=== PATIENT | male | born 1965 ===

== ENCOUNTER 2021-07-09 11:19 | Emergency (ER) | payer OTHER, SELFPAY ==
[2021-07-09 11:40] VITALS: BP 142/61; PULSE 91; RESP 18; TEMP 37; O2SAT 98; BMI 25.8
--- NOTE | 2021-07-09 13:06 | ED.GENADULT ---
HPI - General Adult General Chief complaint: Epistaxis Stated complaint: BLEEDING FROM MOUTH AND NOSE Time Seen by Provider: 07/09/21 11:48 Source: patient, family and RN notes reviewed Mode of arrival: ambulatory Limitations: language barrier History of Present Illness HPI narrative: 55-year-old male with past medical history of liver cirrhosis, hep C is here today for nose bleed. Patient is here with his daughter. Patient came from [place] on Friday and Friday started with no bleed. Patient states that sometimes he will have bleeding post nasally and occasionally he will spit up blood. Patient denies being on any blood thinners. No baseline blood work here as patient just came from [place]. Currently the bleeding has stopped. Patient denies scratching his nose. Patient reports that here blew his nose couple times hard and that is when this started. Patient's daughter does report that her father's room is dry and warm. There is no humidifier there. Onset (ago): day(s) Related Data Allergies Allergy/AdvReac Type Severity Reaction Status Date / Time No Known Allergies Allergy Verified 07/09/21 11:39 Review of Systems Review of Systems: Constitutional : No Weight loss, No Fever, No Chills, No Night Sweats, No Fatigue, No Malaise ENT/Mouth : No Hearing loss, No Ear Pain, No Nasal Congestion, No Sinus Pain, No Hoarseness, No sore throat, No Rhinorrhea, No Swallowing Difficulty, nasal bleeding Eyes: No Eye Pain, No Swelling, No Redness, No Foreign Body, No Discharge, No Vision Changes Cardiovascular : No Chest Pain, No SOB, No Dyspnea on Exertion, No Orthopnea, No Edema, No Palpitations Respiratory : No Cough, No Sputum, No Wheezing, No Smoke Exposure, No Dyspnea Gastrointestinal : No Nausea, No Vomiting, No Diarrhea, No Constipation, No abdominal Pain, No Hematochezia, No Melena Genitourinary : no irregular bleeding, No Dysuria, No Urinary Frequency, No Hematuria, No Urinary Incontinence, No Urgency, No Flank Pain, No Urinary Flow Changes, No Hesitancy Musculoskeletal : No joint pain, No Myalgias, No Joint Swelling Skin : No Skin Lesions, No rash Yes all other systems are reviewed and are negative [facility] Past Medical History Medical History (Updated 07/10/21 @ 00:01 by Kyler Daemon) Diabetes Hepatitis C Surgical History (Updated 07/09/21 @ 11:42 by Jenn Gurrola RN) H/O abdominal surgery Social History Social History Advance Directives: No Advance Directives Information Provided: Yes Physical Exam ED Vital Signs: Vital Signs - 24 hr 07/09/21 11:40 Temperature 98.6 F Pulse Rate 91 Respiratory Rate 18 Blood Pressure 142/61 H Pulse Oximetry 98 BMI result Body Mass Index 25.8 Const General: cooperative, healthy appearing, comfortable and no acute distress Nutritional Appearance: average body habitus Limitations: language barrier (Daughter's translating) HENMT Head: Yes normal to inspection, Yes normocephalic and Yes atraumatic Ears: hearing grossly normal bilaterally, external ears normal and TM's normal bilaterally General nose exam: Normal external nose present, Normal nares present, Abnormal mucous membranes and turbinates present (Blood and irritation) erythematous and Epistaxis present Face and sinus: Yes normal facial exam, Yes sinuses nontender and Yes face symmetric Mouth: Normal oral and palatal mucosa present, lip normal and tongue normal Throat: Yes tonsils normal, Yes uvula midline and Yes postnasal drainage Eyes General: appearance normal, both eyes and all related structures Neck Neck: Yes normal visual inspection, Yes full ROM, Yes no lymphadenopathy, Yes trachea midline and Yes supple Resp Effort & Inspection: normal respiratory effort and able to speak in complete sentences Auscultation: clear to auscultation bilaterally Cardio Rate: regular rate Rhythm: regular rhythm Heart sounds: S1 normal heart sound present and S2 normal heart sound present GI Inspection: Yes normal to inspection, No Abdominal wall edema and No distended Palpation (GI): No hepatosplenomegaly present Auscultation: normal bowel sounds General: Yes no CVA tenderness Back/Spine/Pelvis Back: no CVA tenderness Psych Appearance: grossly normal Mental Status: mental status grossly normal Speech and movement: Normal speech and movement present Attitude: cooperative Course Course Course Narrative: 55-year-old male with past medical history of liver cirrhosis, hep C is here today for nose bleed. Patient is here with his daughter. Patient came from [place] on Friday and Friday started with nose bleed. Patient states that sometimes he will have bleeding post nasally and occasionally he will spit up blood. Patient denies being on any blood thinners. No baseline blood work available as patient just came from [place]. Currently the bleeding has stopped. Patient denies scratching his nose. Patient reports that here blew his nose couple times pretty hard and that is when the bleeding had started. Will do baseline blood work, liver profiles, PT and INR, CBC. Bleeding under control for now continue to monitor. Patient does have irritation in his nose with some dried blood. No bleeding at this moment. Reevaluation(s) Reevaluation #1: Normal PT and INR. H&H low 12.9 and 37.6, platelet count 90, total bili 3.8 direct bili 3, AST 192, ALT 132 alk phosphate 192. Patient has a history of chronic liver cirrhosis he, he was being evaluated in [place], however his family wanted him to be here for better medical care. Patient also has a history of hep C, unknown if he was treated in the past or not. That has to be evaluated as an outpatient. Patient used to drink alcohol, stopped drinking over a decade ago. Patient has no nose bleed now or at any time that he was here under my care. I will send him to follow-up with political research scientist to further evaluate as I can clearly see that there is irritation. I will send him to see gastroenterology for liver and hep C management. Medical Decision Making Lab Data Result diagrams: 07/09/21 13:19 07/09/21 13:19 Labs: Lab Results 07/09/21 07/09/21 07/09/21 Range/Units 13:19 13:19 13:19 WBC 2.9 L (4.8-10.8) X10*3/uL RBC 4.35 L (4.60-5.80) X10*6/uL Hgb 12.9 L (14.0-18.0) g/dl Hct 37.6 L (42.0-52.0) % MCV 86.4 (80.0-98.0) fL MCH 29.7 (27.0-33.0) pg MCHC 34.3 (31.0-36.0) g/dl RDW 13.5 (11.0-16.0) % Plt Count 90 L (160-400) X10*3/uL MPV 10.0 (9.4-12.4) fL Immature Gran % (Auto) 0.3 (0.0-0.4) % Neut % (Auto) 36.0 L (45-73) % Lymph % (Auto) 42.9 H (20-40) % Williamson % (Auto) 18.8 H (2-11) % Eos % (Auto) 1.7 (0-4) % Baso % (Auto) 0.3 (0-2) % Lymph # (Auto) 1.2 (1.2-4.9) X10*3/uL Williamson # (Auto) 0.5 (0.1-1.2) X10*3/uL Eos # (Auto) 0.1 (0.0-0.4) X10*3/uL Baso # (Auto) 0.0 (0.0-0.2) X10*3/uL Abs Immat Gran (auto) 0.01 (0.00-0.03) X10*3/uL Absolute Neuts (auto) 1.0 L (2.0-8.3) x10*3/uL Absolute Nucleated RBC 0.000 (0.0-0.012) X10*3/uL Nucleated RBC % (auto) 0.0 (0.0-0.2) /100WBC PT 12.4 (9.9-13.0) SEC INR 1.1 (0.9-1.1) APTT 37.9 (24.1-38.0) SEC Sodium 139 (135-145) mmol/L Potassium 4.2 (3.3-5.1) mmol/L Chloride 109 H (96-108) mmol/L Carbon Dioxide 26 (22-29) mmol/L Anion Gap 8 L (12-20) BUN 10 (9-16) mg/dL Creatinine 0.61 (0.5-1.4) mg/dL Estim Creat Clear Calc 120.5 Estimated GFR > 60 Random Glucose 103 (60-115) mg/dL Calcium 8.7 (8.4-10.2) mg/dL Total Bilirubin 3.8 H (0.0-1.0) mg/dL Direct Bilirubin 3.0 H (0.0-0.5) mg/dL AST 192 H (5-37) U/L ALT 133 H (0-40) U/L Alkaline Phosphatase 192 H (39-117) U/L Total Protein 6.9 (6.5-8.0) g/dL Albumin 2.8 L (3.5-5.0) g/dL Discharge Plan Discharge Clinical Impression: Epistaxis Patient Disposition: Home, Self-Care Instructions: Nosebleed (ED) Additional Instructions: You were seen here today for nose bleed. Make sure that you apply Vaseline and saline drops into ear nose. Make sure that you keep your room humidified and cool. Please follow-up with you nose and throat specialist. We did your liver enzymes and they are elevated. You were diagnosed with liver cirrhosis and [place]. We will give you phone number to Gastroenterology for follow-up and management of your liver cirrhosis. You may return to emergency department if his symptoms will get worse or if you experience any additional concerning symptoms. Referrals: Rayna See ANP-C [Nurse Practitioner] - 2 weeks (Liver cirrhosis) Mal Shannon MD [Physician] - 2 days [place] [Physician] - 5 days Interventions: ED Discharge Assessment Last Done: 07/09/21 15:15 Discharge Date/Time: 07/09/21 15:16
[2021-07-09 13:24] LABS: MANUAL DIFF FLAG NO
[2021-07-09 13:27] LABS: Basophils Percent Auto 0.3 % (0-2); Eosinophils Absolute Auto 0.1 X10*3/uL (0.0-0.4); Eosinophils Percent Auto 1.7 % (0-4); Hematocrit 37.6 % (42.0-52.0); Hemoglobin 12.9 g/dl (14.0-18.0); Imm Gran Abs Auto 0.01 X10*3/uL (0.00-0.03); Imm Gran Pct Auto 0.3 % (0.0-0.4); Lymphocytes Absolute Auto 1.2 X10*3/uL (1.2-4.9); Lymphocytes Percent Auto 42.9 % (20-40); Mean Corpuscular HGB Conc 34.3 g/dl (31.0-36.0); Mean Corpuscular Hemoglobin 29.7 pg (27.0-33.0); Mean Corpuscular Volume 86.4 fL (80.0-98.0); Monocytes Absolute Auto 0.5 X10*3/uL (0.1-1.2); Monocytes Percent Auto 18.8 % (2-11); Red Blood Count 4.35 X10*6/uL (4.60-5.80); Red Cell Distribution Width 13.5 % (11.0-16.0); White Blood Count 2.9 X10*3/uL (4.8-10.8)
[2021-07-09 13:28] LABS: Platelet Count 90 X10*3/uL (160-400)
[2021-07-09 13:32] LABS: INTERNATIONAL NORM RATIO 1.1 (0.9-1.1); Prothrombin Time 12.4 SEC (9.9-13.0)
[2021-07-09 13:35] LABS: Partial Thromboplastin Time 37.9 SEC (24.1-38.0)
[2021-07-09 13:47] LABS: Alanine Aminotransferase 133 U/L (0-40); Albumin Level 2.8 g/dL (3.5-5.0); Alkaline Phosphatase 192 U/L (39-117); Anion Gap 8 (12-20); Aspartate Amino Transferase 192 U/L (5-37); Bilirubin Total 3.8 mg/dL (0.0-1.0); Blood Urea Nitrogen 10 mg/dL (9-16); Calcium 8.7 mg/dL (8.4-10.2); Carbon Dioxide 26 mmol/L (22-29); Chloride 109 mmol/L (96-108); Creatinine Clr Calc Pharmacy 120.5; Estimated Glomerular Filt Rate > 60; Glucose Random 103 mg/dL (60-115); Potassium 4.2 mmol/L (3.3-5.1); Sodium 139 mmol/L (135-145); Total Protein 6.9 g/dL (6.5-8.0)
== END 2021-07-09 15:16 | disposition home or self-care (01) ==
PROVIDERS: Emergency Provider Emergency Medicine
DX: R04.0 Epistaxis (principal); Z79.899 Other long term (current) drug therapy
CPT/HCPCS: 36415; 80048; 80076; 85025; 85610; 85730; 99283

== ENCOUNTER → 2021-07-31 15:15 | Outpatient (BNVA) | payer MEDICAID, SELFPAY | PROVIDERS: Visit Provider Internal Medicine | DX: B19.20 Unspecified viral hepatitis C without hepatic coma (principal) | CPT/HCPCS: 99202 ==

== ENCOUNTER 2021-09-17 13:30 | Outpatient (REF) | payer MEDICAID, SELFPAY ==
--- NOTE | 2021-09-17 13:33 | CA_ITS ---
Transthoracic Echocardiogram Patient (Last, First, Middle): Yordy Serna Antonio Gender: Male Date of : 1965 Age: 56 Procedure Date: 09/17/2021 Procedure Type: Transthoracic Echocardiogram Location: OP Height: 165.1 cm Weight: 68.04 kg BSA: 1.75 m2 Heart Rate: bpm BP: 124 / 64 mmHg Electric Freight Car Operator: SB Referring MD: Danielle Iniguez Symptoms: R06.00 [id number] Study Quality: Fair ECG Rhythm: Sinus Conclusions: - The left ventricular systolic function is mildly decreased. The calculated ejection fraction is 51% by biplane method. - There is mild calcification of the aortic valve. - There is mild mitral valve regurgitation. - Mild pulmonary hypertension is present. Findings Left Ventricle Normal left ventricular cavity size. There is normal left ventricular wall thickness. The left ventricular systolic function is mildly decreased. The calculated ejection fraction is 51% by biplane method. There is no evidence of regional wall motion abnormalities. Diastolic function is normal for age. LV peak GLS -17.2% (normal). Right Ventricle Normal right ventricular cavity size and systolic function. Atria The left atrium is mildly dilated. The right atrium is normal in size. Aortic Valve The aortic valve was not well visualized. There is mild calcification of the aortic valve. There is no aortic valve stenosis. There is no aortic valve regurgitation. Mitral Valve The mitral valve appears normal. There is mild mitral valve regurgitation. There is no mitral valve stenosis. Pulmonic Valve The pulmonic valve is likely normal. Tricuspid Valve Normal tricuspid valve structure. There is trace tricuspid valve regurgitation. The right ventricular systolic pressure is 44 mmHg. Mild pulmonary hypertension is present. Great Vessels The asc aorta is normal in size. Venous The inferior vena cava is normal in size and collapses less than 50% with inspiration. Pericardium/Pleural There is no evidence of pericardial effusion. Prior Study Comparison No prior study available for comparison. Measurements 2D Linear Measurements IVSd: 0.72 0.6-0.9/0.6-1.0 cm LVIDd: 5.36 3.9-5.3/4.2-5.9 cm LVIDd Index: 3.06 2.4-3.2/2.2-3.1 cm/m2 LVIDs: 3.84 2.0-3.6 cm LVPWd: 0.72 0.7-1.1 cm LA Diam: 3.60 2.7-3.8/3.0-4.0 cm LAIDs Index: 2.06 1.5-2.3 cm/m2 LV Mass: 166.57 67-162/88-224 g LV Mass Index: 95.18 43-95/49-115 g/m2 LVOT Diam: 2.20 3.0+(-)1.3 cm 2D Systolic Function EF 4C: 51.90 >55% EF 2C: 51.30 >55% EF BiP: 50.90 >55% Mitral Valve MV Pk E: 0.99 MV PK A: 0.90 MV Decel Time: 176.00 E/A: 1.10 E'Lateral: 10.80 E'Medial: 9.68 E/E' Med: 10.20 E/E' Lat: 9.20 PHT: 51.00 MVA PHT: 4.31 Decel [place]: 5.64 MR VTI: 1.35 Aortic Valve AoV Pk Adam: 2.24 AoV Mn Adam: 1.59 AoV VTI: 0.42 AoV Pk Grad: 20.00 Aov Mn Grad: 12.00 ROSANGELA Cont.VTI: 2.55 LVOT LVOT Pk Adam: 1.52 LVOT Mn Adam: 1.09 LVOT VTI: 0.28 LVOT Pk Grad: 9.00 LVOT Mn Grad: 5.00 LVOT Diam: 2.20 LVOT Area: 3.80 Diastolic Function MV Pk E: 0.99 MV Pk A: 0.90 E/A: 1.10 E'Medial: 9.68 E/E' Med: 10.20 E' Laterial: 10.80 E/E' Lat: 9.20 Right Ventricle TAPSE (mm): 29.00 TVS' Adam: 16.80 Tricuspid Valve TR Pk Adam: 3.00 TR Pk Grad: 36.00 RA Press: 8.00 RVSP: 44.00 Great Vessels Aorta Sinus of Valsalva: 2.78 2.0-3.[address] [place]: 2.64 1.7-3.4 cm Ao Asc: 2.60 2.1-3.4 cm Pulmonary Veins Pulm Vein S/D 1.20 Pulmonary Valve PV Pk Adam: 1.22 Peak PV Grad: 6.00 Updated in Other Vendor System with Status of Final Jason Padron MD electronically signed on 09/17/2021 4:06:07 PM with status of Final
[2021-09-17 15:40] LABS: INTERNATIONAL NORM RATIO 1.1 (0.9-1.1); Prothrombin Time 12.8 SEC (9.9-13.0)
[2021-09-18 04:41] LABS: Hepatitis B Surface Antigen Negative (Negative)
[2021-09-19 08:16] LABS: Hepatitis A Antibody IgG REACTIVE (Nonreactive); ~Hepatitis A Antibody IgG 10.34 S/CO (0.00-0.99)
[2021-09-20 20:22] LABS: FIB-ALT 105 U/L (9-46); FIB-Alpha-2-Macroglobulin 215 mg/dL (106-279); FIB-Apolipoprotein A1 157 mg/dL (94-176); FIB-GGT 271 U/L (3-85); FIB-Haptoglobin 21 mg/dL (43-212); FIB-Total Bilirubin 3.9 mg/dL (0.2-1.2); Liver Fibrosis Score 0.93; Liver Fibrosis Stage F4; Nec Inflam Act Grade A3; Nec Inflam Act Score 0.79
[2021-09-21 12:40] LABS: Hepatitis C Genotype 1a
== END 2021-09-17 13:31 | disposition home or self-care (01) ==
LOC: HO.LAB 13:30
PROVIDERS: Absent Provider Nurse Practitioner; PCP Nurse Practitioner; Visit Provider Internal Medicine
DX: R06.00 Dyspnea, unspecified (principal); B19.20 Unspecified viral hepatitis C without hepatic coma
CPT/HCPCS: 36415; 81596; 85610; 86708; 87340; 87902; 93306

== ENCOUNTER → 2021-09-26 11:00 | Outpatient (BNVA) | payer MEDICAID, SELFPAY | PROVIDERS: Visit Provider Internal Medicine | DX: Z51.81 Encounter for therapeutic drug level monitoring (principal); B19.20 Unspecified viral hepatitis C without hepatic coma; K74.69 Other cirrhosis of liver | CPT/HCPCS: 99212 ==

== ENCOUNTER → 2021-11-21 10:21 | Outpatient (BNVA) | payer MEDICAID, SELFPAY | PROVIDERS: Visit Provider Internal Medicine | DX: B19.20 Unspecified viral hepatitis C without hepatic coma (principal); K74.69 Other cirrhosis of liver | CPT/HCPCS: 99212 ==

== ENCOUNTER 2021-11-28 21:16 | Inpatient (IN) | payer MEDICAID, SELFPAY ==
--- NOTE | ~2021-11-28 | CT_ITS ---
EXAMINATION: CT ANGIOGRAM OF THE CHEST WITH AND WITHOUT CONTRAST (CT PULMONARY ANGIOGRAM FOR PE) CLINICAL INFORMATION: Reason for Exam elevated d dimer, hemoptysis, SOB/fever COMPARISON: Chest radiograph earlier today TECHNIQUE: Prior to contrast administration, noncontrast localization images were obtained. Subsequently, multidetector volumetric imaging was performed from the thoracic inlet to below the diaphragms following the administration of 75 mL Omnipaque 350 intravenous contrast. No contrast reaction reported Sagittal, coronal, and MIP oblique sagittal reformatted images were obtained on the CT workstation, uploaded to PACS, and reviewed. This CT examination was performed using dose optimization techniques as appropriate, variously including the following: *Automated exposure control *Adjustment of mA and/or kV according to patient size (this includes techniques or standardized protocols for targeted exams where dose is matched to indication/reason for exam; i.e. extremities or head) *Use of iterative reconstruction technique Total exam dose-length product 286 mGy-cm FINDINGS: QUALITY OF STUDY/CONTRAST BOLUS: Suboptimal. PULMONARY ARTERIES: No central or large segmental pulmonary emboli. THORACIC AORTA: No aneurysm or dissection. LUNG: Consolidation is present in the medial basal segment of the left lower lobe. The remainder of the lungs are clear. No suspicious lung masses are seen. Some minimal atelectasis is present in the posterior costophrenic sulcus on the left medially. PLEURA: No pleural effusion or pneumothorax. MEDIASTINUM: Normal heart size. No pericardial effusion. No hilar or mediastinal lymphadenopathy. No evidence of septal bowing or right heart strain. CHEST WALL/AXILLA: No axillary or internal mammary lymphadenopathy. OSSEOUS STRUCTURES: No acute or suspicious osseous abnormality. UPPER ABDOMEN: The spleen is enlarged measuring 13.6 cm in greatest transverse dimension. No reflux of contrast into the hepatic veins to suggest elevated right heart pressures. CT/CT angio chest PE protocol IMPRESSION: 1. Limited study but no pulmonary emboli are seen. 2. Acute pneumonia left lower lobe 3. Incidentally noted mild splenomegaly VTE: negative
--- NOTE | ~2021-11-28 | XR_ITS ---
EXAMINATION: XR CHEST CLINICAL INFORMATION: Shortness of breath COMPARISON: This x-ray 03/23/2009 TECHNIQUE: 2 views of the chest were obtained. FINDINGS: The lungs appear clear. No airspace consolidation, pleural effusion, or pneumothorax. The cardiomediastinal silhouette and pulmonary vascularity are within normal limits. No evidence of pulmonary edema. No acute osseous injury is identified. XR/XR chest 2V IMPRESSION: No acute pulmonary process identified.
[2021-11-28 21:20] VITALS: BP 172/82; PULSE 113; RESP 28; TEMP 39.5; O2SAT 96; BMI 27.4
--- NOTE | 2021-11-28 21:25 | ECG_ITS ---
Test Reason : chest pain Blood Pressure : / mmHG Vent. Rate : 106 BPM Atrial Rate : 106 BPM P-R Int : 160 ms QRS Dur : 084 ms QT Int : 338 ms P-R-T Axes : 076 077 047 degrees QTc Int : 448 ms Sinus tachycardia Minimal voltage criteria for LVH, may be normal variant ( Sokolow-Hinkle ) Borderline ECG No previous ECGs available Referred By: Generic ED Physician Electronically Signed By:ARIA CASTRO MD
[2021-11-28 21:53] LABS: MANUAL DIFF FLAG NO
[2021-11-28 21:56] LABS: Basophils Percent Auto 0.2 % (0-2); Eosinophils Absolute Auto 0.1 X10*3/uL (0.0-0.4); Eosinophils Percent Auto 1.8 % (0-4); Hematocrit 30.1 % (42.0-52.0); Hemoglobin 10.7 g/dl (14.0-18.0); Imm Gran Abs Auto 0.02 X10*3/uL (0.00-0.03); Imm Gran Pct Auto 0.4 % (0.0-0.4); Lymphocytes Absolute Auto 0.8 X10*3/uL (1.2-4.9); Lymphocytes Percent Auto 16.1 % (20-40); Mean Corpuscular HGB Conc 35.5 g/dl (31.0-36.0); Mean Corpuscular Hemoglobin 29.8 pg (27.0-33.0); Mean Corpuscular Volume 83.8 fL (80.0-98.0); Monocytes Absolute Auto 0.5 X10*3/uL (0.1-1.2); Monocytes Percent Auto 10.3 % (2-11); Neutrophils Absolute Auto 3.5 x10*3/uL (2.0-8.3); Neutrophils Percent Auto 71.2 % (45-73); Red Blood Count 3.59 X10*6/uL (4.60-5.80); Red Cell Distribution Width 14.1 % (11.0-16.0)
[2021-11-28 21:57] LABS: Appearance Urine CLEAR; Color Urine YELLOW; Glucose Urine UA NEG (NEG); Leukocyte Esterase Urine NEG (NEG); Nitrite Urine NEG (NEG); PH 5.5 (5.0-8.0); Specific Gravity - Urine 1.025 (1.005-1.025); UACC Culture Trigger NO; Urine Blood 3+ (NEG); Urine Ketones NEG (NEG); Urine Protein NEG (NEG-TRACE)
[2021-11-28 22:02] LABS: Platelet Count 77 X10*3/uL (160-400)
[2021-11-28 22:06] LABS: Bacteria Urine 1+ /LPF; WBC Urine 0 /HPF (0-4)
[2021-11-28 22:15] VITALS: BP 146/74; PULSE 107; RESP 20; TEMP 39.2; O2SAT 98
[2021-11-28 22:15] LABS: Lactic Acid 1.9 mmol/L (0.5-2.0)
[2021-11-28] MEDS: 0.9 % Sodium Chloride 1,000 ML 999 ML IV (22:17)
[2021-11-28 22:19] LABS: Alanine Aminotransferase 55 U/L (0-40); Albumin Level 2.8 g/dL (3.5-5.0); Alkaline Phosphatase 180 U/L (39-117); Anion Gap 11 (12-20); Aspartate Amino Transferase 98 U/L (5-37); Bilirubin Total 3.7 mg/dL (0.0-1.0); Blood Urea Nitrogen 16 mg/dL (9-16); Calcium 7.8 mg/dL (8.4-10.2); Carbon Dioxide 22 mmol/L (22-29); Chloride 108 mmol/L (96-108); Creatinine Clr Calc Pharmacy 106.3; Estimated Glomerular Filt Rate > 60; Glucose Random 106 mg/dL (60-115); Potassium 3.7 mmol/L (3.3-5.1); Sodium 137 mmol/L (135-145); Total Protein 6.6 g/dL (6.5-8.0)
[2021-11-28] MEDS: cefTRIAXone sodium 1 GM in 0.9 % Sodium Chloride 50 ML IV (22:21)
--- NOTE | 2021-11-28 22:23 | ED_ITS ---
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 Patient reports he has nosebleeds but I always have these. Also reports some hemoptysis with coughing. No leg swelling or leg pain. Has chronic itching and rash for years no abdominal pain, vomiting, diarrhea, neck pain or neck stiffness, urinary symptoms. Has received 3 covid vaccinations Denies IVDA >25 yrs Related Data Home Medications Medication Instructions Recorded Confirmed buspirone 5 mg tablet 5 mg PO BID anxiety 07/31/21 diclofenac sodium 1 % topical gel 2 g topical QID 07/31/21 losartan 25 mg tablet 25 mg PO DAILY 07/31/21 simvastatin 20 mg tablet 20 mg PO QPM 07/31/21 Previous Rx's Medication Instructions Recorded glecaprevir 100 mg-pibrentasvir 40 3 tab PO DAILY 8 weeks #168 tabs 09/28/21 mg tablet (Mavyret) Allergies Allergy/AdvReac Type Severity Reaction Status Date / Time No Known Allergies Allergy Verified 11/28/21 21:20 Review of Systems Review of Systems: Yes all other systems are reviewed and are negative Constitutional: Constitutional: Reports no additional constitutional complaints, Reports body ache(s), Reports chills, Reports fever(s), Denies headache(s) and Denies weakness Eyes: Eyes: Reports no additional eye complaints and Denies change in vision ENT: Reports system reviewed and no additional complaints, except as documented, Denies dizziness, Denies headache(s), Reports epistaxis, Denies nasal congestion, Denies nasal discharge and Denies neck pain Cardiovascular: Cardiovascular: Reports no additional cardiovascular complaints, Reports chest pain, Denies leg edema and Reports dyspnea Respiratory: Respiratory: Reports no additional respiratory complaints, Reports cough, Reports hemoptysis and Reports dyspnea Gastrointestinal: Gastrointestinal: Reports no additional gastrointestinal complaints, Denies abdominal pain, Denies diarrhea, Denies nausea and Denies vomiting Genitourinary: Genitourinary: Denies urinary incontinence Musculoskeletal: Musculoskeletal: Reports no additional musculoskeletal complaints, Denies back pain, Denies arthralgias, Denies joint swelling, Denies neck pain, Denies numbness and Denies tingling Integumentary/Breasts: Skin/Breast: Reports system reviewed and no additional complaints, except as docu and Reports rash Neurologic: Reports system reviewed and no additional complaints, except as documented, Denies Abnormal speech present, Denies dizziness, Denies headache(s), Denies numbness, Denies tingling and Denies weakness PMFSH Past Medical History Attestation statement: The following information was validated with the patient. 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) Diabetes Hepatitis C Hepatitis C HTN (hypertension) Surgical History H/O abdominal surgery Family History Family History Mother Diabetes Mother HTN (hypertension) Sister HTN (hypertension) Diabetes Social History Social History Household Members Other:: sister Housing: Apartment Alcohol intake: former Patient Tobacco Use Status: Current everyday Tobacco user Tobacco use type: Cigarette Cigarettes Per Day: 20 Years Smoked: 40 Advance Directives: No Physical Exam Vital Signs: Vital Signs: Last Vital Signs Temp 100.5 F H 11/28/21 23:37 Pulse 104 H 11/28/21 23:37 Resp 18 11/28/21 23:37 BP 119/54 L 11/28/21 23:37 Pulse Ox 98 11/28/21 23:37 O2 Del Method 11/28/21 23:37 BMI result Body Mass Index 27.4 Const: General: cooperative, healthy appearing, comfortable and no acute distress Orientation/consciousness: patient oriented x3 Limitations: no limitations HEENT: Head: Yes normal to inspection Ears: hearing grossly normal b ilaterally and TM's normal bilaterally General nose exam: Normal external nose present Face and sinus: Yes normal facial exam Mouth: other (tacky MM) Throat: Yes posterior oropharynx normal, Yes tonsils normal and Yes uvula midline Eyes: General: appearance normal, both eyes and all related structures Pupils: Equal, round and reactive pupils present Neck: Neck: Yes normal visual inspection, Yes full ROM, Yes no lymphadenopathy and Yes no meningeal signs Chest: Chest palpation & inspection: normal inspection of the chest Resp: Other: tachypnea 24 Auscultation: clear to auscultation bilaterally Cardio: Rate: tachycardic Rhythm: regular rhythm Peripheral pulses: Peripheral pulses 2+ throughout GI: Inspection: Yes normal to inspection Palpation (GI): Soft to palpation and nontender Auscultation: normal bowel sounds Back/Spine/Pelvis: Thoracic/Lumbar Spine: thoracic and lumbar spine normal to inspection Skin: General skin exam: no rashes or lesions noted Neuro: General: patient oriented x3, moves all extremities, no meningeal signs, no focal motor deficits and normal sensation to monofilament Cranial nerves: Yes Equal, round and reactive pupils present Cognition (Neuro): normal cognition Speech: No Abnormal speech present Gait exam (Neuro): Normal gait present Motor exam (neuro): 5/5 motor strength present throughout Extrem: General: Yes normal to inspection, Yes no pedal edema and Yes no calf tenderness Course Course Course Narrative: 2229-Labs show chronic thrombocytopenia which is from his liver disease. This is likely the cause of his chronic nosebleeds and may be contributing to his hemoptysis. Elevated D-dimer. Will check CTA Reevaluation(s) Reevaluation #1: CTA negative for PE. C/w with LLL PNA. Patient meeting SIRS criteria with PNA, hemoptysis with thrombocytopenia. Should be admitted. Call out to medicine to discuss for admission. Time: 23:50 Reevaluation #2: Spoke to Dr Escamilla who accepted admission. Time: 00:00 MDM - Fever MDM Narrative Medical decision making narrative: 56 yo male with history of asthma, hepatitic C with former IVDA, HTN, HLD, DM diet controlled here with 1 day of fever, cough with occasional hemoptysis, chest discomfort with coughing and SOB. On arrival febrile, tachypnic, tachycardic. Will need labs including blood cultures, COVID/flu screen, CXR, EKG. Will give antipyretic, place PIV for NSB. At this time infection is suspected antibiotics ordered Differential Diagnosis Differential diagnosis: Likely cellulitis, fever of unknown origin, gastroenteritis, community acquired pneumonia, viral infection, sepsis and influenza Medical Records Attestation: I reviewed the patient's medical records. Lab Data Attestation: I reviewed the patient's lab results. Result diagrams: 11/28/21 21:43 11/28/21 21:43 Labs: Lab Results 11/28/21 11/28/21 11/28/21 Range/Units 21:43 21:43 21:43 WBC 5.0 (4.8-10.8) X10*3/uL RBC 3.59 L (4.60-5.80) X10*6/uL Hgb 10.7 L (14.0-18.0) g/dl Hct 30.1 L (42.0-52.0) % MCV 83.8 (80.0-98.0) fL MCH 29.8 (27.0-33.0) pg MCHC 35.5 (31.0-36.0) g/dl RDW 14.1 (11.0-16.0) % Plt Count 77 L (160-400) X10*3/uL MPV 11.0 (9.4-12.4) fL Immature Gran % (Auto) 0.4 (0.0-0.4) % Neut % (Auto) 71.2 (45-73) % Lymph % (Auto) 16.1 L (20-40) % [place] % (Auto) 10.3 (2-11) % Eos % (Auto) 1.8 (0-4) % Baso % (Auto) 0.2 (0-2) % Lymph # (Auto) 0.8 L (1.2-4.9) X10*3/uL [place] # (Auto) 0.5 (0.1-1.2) X10*3/uL Eos # (Auto) 0.1 (0.0-0.4) X10*3/uL Baso # (Auto) 0.0 (0.0-0.2) X10*3/uL Abs Immat Gran (auto) 0.02 (0.00-0.03) X10*3/uL Absolute Neuts (auto) 3.5 (2.0-8.3) x10*3/uL Absolute Nucleated RBC 0.000 (0.0-0.012) X10*3/uL Nucleated RBC % (auto) 0.0 (0.0-0.2) /100WBC PT (10.0-13.1) SEC INR (0.9-1.1) D-Dimer High Sensitivty NG/ML Sodium 137 (135-145) mmol/L Potassium 3.7 (3.3-5.1) mmol/L Chloride 108 (96-108) mmol/L Carbon Dioxide 22 (22-29) mmol/L Anion Gap 11 L (12-20) BUN 16 D (9-16) mg/dL Creatinine 0.74 (0.5-1.4) mg/dL Estim Creat Clear Calc 106.3 Estimated GFR > 60 Random Glucose 106 (60-115) mg/dL Lactic Acid (0.5-2.0) mmol/L Calcium 7.8 L D (8.4-10.2) mg/dL Total Bilirubin 3.7 H (0.0-1.0) mg/dL AST 98 H (5-37) U/L ALT 55 H (0-40) U/L Alkaline Phosphatase 180 H (39-117) U/L Troponin I High Sens 13.0 (<3.5-35.0) ng/L Total Protein 6.6 (6.5-8.0) g/dL Albumin 2.8 L (3.5-5.0) g/dL Urine Color Urine Appearance Urine pH (5.0-8.0) Ur Specific [place] (1.005-1.025) Urine Protein (NEG-TRACE) MG/DL Urine Glucose (UA) (NEG) MG/DL Urine Ketones (NEG) MG/DL Urine Blood (NEG) Urine Nitrite (NEG) Ur Leukocyte Esterase (NEG) Urine RBC (0) /HPF Urine WBC (0-4) /HPF Ur Squamous Epith Cells /LPF Urine Bacteria /LPF COVID-19 (JULIANNA) (Negative) COVID-19 Clin Com Influenza Type A (EVELIN) (Negative) Influenza Type B (EVELIN) (Negative) Influenza A & B Note 11/28/21 11/28/21 11/28/21 Range/Units 21:43 21:43 21:43 WBC (4.8-10.8) X10*3/uL RBC (4.60-5.80) X10*6/uL Hgb (14.0-18.0) g/dl Hct (42.0-52.0) % MCV (80.0-98.0) fL MCH (27.0-33.0) pg MCHC (31.0-36.0) g/dl RDW (11.0-16.0) % Plt Count (160-400) X10*3/uL MPV (9.4-12.4) fL Immature Gran % (Auto) (0.0-0.4) % Neut % (Auto) (45-73) % Lymph % (Auto) (20-40) % [place] % (Auto) (2-11) % Eos % (Auto) (0-4) % Baso % (Auto) (0-2) % Lymph # (Auto) (1.2-4.9) X10*3/uL [place] # (Auto) (0.1-1.2) X10*3/uL Eos # (Auto) (0.0-0.4) X10*3/uL Baso # (Auto) (0.0-0.2) X10*3/uL Abs Immat Gran (auto) (0.00-0.03) X10*3/uL Absolute Neuts (auto) (2.0-8.3) x10*3/uL Absolute Nucleated RBC (0.0-0.012) X10*3/uL Nucleated RBC % (auto) (0.0-0.2) /100WBC PT (10.0-13.1) SEC INR (0.9-1.1) D-Dimer High Sensitivty NG/ML Sodium (135-145) mmol/L Potassium (3.3-5.1) mmol/L Chloride (96-108) mmol/L Carbon Dioxide (22-29) mmol/L Anion Gap (12-20) BUN (9-16) mg/dL Creatinine (0.5-1.4) mg/dL Estim Creat Clear Calc Estimated GFR Random Glucose (60-115) mg/dL Lactic Acid 1.9 (0.5-2.0) mmol/L Calcium (8.4-10.2) mg/dL Total Bilirubin (0.0-1.0) mg/dL AST (5-37) U/L ALT (0-40) U/L Alkaline Phosphatase (39-117) U/L Troponin I High Sens (<3.5-35.0) ng/L Total Protein (6.5-8.0) g/dL Albumin (3.5-5.0) g/dL Urine Color Urine Appearance Urine pH (5.0-8.0) Ur Specific [place] (1.005-1.025) Urine Protein (NEG-TRACE) MG/DL Urine Glucose (UA) (NEG) MG/DL Urine Ketones (NEG) MG/DL Urine Blood (NEG) Urine Nitrite (NEG) Ur Leukocyte Esterase (NEG) Urine RBC (0) /HPF Urine WBC (0-4) /HPF Ur Squamous Epith Cells /LPF Urine Bacteria /LPF COVID-19 (JULIANNA) Negative (Negative) COVID-19 Clin Com See Note Influenza Type A (EVELIN) Negative (Negative) Influenza Type B (EVELIN) Negative (Negative) Influenza A & B Note See Note 11/28/21 11/28/21 Range/Units 21:44 22:13 WBC (4.8-10.8) X10*3/uL RBC (4.60-5.80) X10*6/uL Hgb (14.0-18.0) g/dl Hct (42.0-52.0) % MCV (80.0-98.0) fL MCH (27.0-33.0) pg MCHC (31.0-36.0) g/dl RDW (11.0-16.0) % Plt Count (160-400) X10*3/uL MPV (9.4-12.4) fL Immature Gran % (Auto) (0.0-0.4) % Neut % (Auto) (45-73) % Lymph % (Auto) (20-40) % [place] % (Auto) (2-11) % Eos % (Auto) (0-4) % Baso % (Auto) (0-2) % Lymph # (Auto) (1.2-4.9) X10*3/uL [place] # (Auto) (0.1-1.2) X10*3/uL Eos # (Auto) (0.0-0.4) X10*3/uL Baso # (Auto) (0.0-0.2) X10*3/uL Abs Immat Gran (auto) (0.00-0.03) X10*3/uL Absolute Neuts (auto) (2.0-8.3) x10*3/uL Absolute Nucleated RBC (0.0-0.012) X10*3/uL Nucleated RBC % (auto) (0.0-0.2) /100WBC PT 12.8 (10.0-13.1) SEC INR 1.1 (0.9-1.1) D-Dimer High Sensitivty 439 NG/ML Sodium (135-145) mmol/L Potassium (3.3-5.1) mmol/L Chloride (96-108) mmol/L Carbon Dioxide (22-29) mmol/L Anion Gap (12-20) BUN (9-16) mg/dL Creatinine (0.5-1.4) mg/dL Estim Creat Clear Calc Estimated GFR Random Glucose (60-115) mg/dL Lactic Acid (0.5-2.0) mmol/L Calcium (8.4-10.2) mg/dL Total Bilirubin (0.0-1.0) mg/dL AST (5-37) U/L ALT (0-40) U/L Alkaline Phosphatase (39-117) U/L Troponin I High Sens (<3.5-35.0) ng/L Total Protein (6.5-8.0) g/dL Albumin (3.5-5.0) g/dL Urine Color YELLOW Urine Appearance CLEAR Urine pH 5.5 (5.0-8.0) Ur Specific [place] 1.025 (1.005-1.025) Urine Protein NEG (NEG-TRACE) MG/DL Urine Glucose (UA) NEG (NEG) MG/DL Urine Ketones NEG (NEG) MG/DL Urine Blood 3+ H (NEG) Urine Nitrite NEG (NEG) Ur Leukocyte Esterase NEG (NEG) Urine RBC 5-9 H (0) /HPF Urine WBC 0 (0-4) /HPF Ur Squamous Epith Cells NONE /LPF Urine Bacteria 1+ /LPF COVID-19 (JULIANNA) (Negative) COVID-19 Clin Com Influenza Type A (EVELIN) (Negative) Influenza Type B (EVELIN) (Negative) Influenza A & B Note Imaging Data Chest x-ray: Attestation: I personally reviewed and interpreted this imaging study as follows: Radiologist's impression: EXAMINATION: XR CHEST CLINICAL INFORMATION: Shortness of breath COMPARISON: This x-ray 03/23/2009 TECHNIQUE: 2 views of the chest were obtained. FINDINGS: The lungs appear clear. No airspace consolidation, pleural effusion, or pneumothorax. The cardiomediastinal silhouette and pulmonary vascularity are within normal limits. No evidence of pulmonary edema. No acute osseous injury is identified. XR/XR chest 2V IMPRESSION: No acute pulmonary process identified. CT scan - chest: Attestation: I personally reviewed and interpreted this imaging study as follows: Radiologist's impression: FINDINGS: QUALITY OF STUDY/CONTRAST BOLUS: Suboptimal. PULMONARY ARTERIES: No central or large segmental pulmonary emboli.? THORACIC AORTA: No aneurysm or dissection. LUNG: Consolidation is present in the medial basal segment of the left lower lobe. The remainder of the lungs are clear. No suspicious lung masses are seen. Some minimal atelectasis is present in the posterior costophrenic sulcus on the left medially. PLEURA: No pleural effusion or pneumothorax. MEDIASTINUM: Normal heart size.? No pericardial effusion.? No hilar or mediastinal lymphadenopathy.? No evidence of septal bowing or right heart strain. CHEST WALL/AXILLA: No axillary or internal mammary lymphadenopathy. OSSEOUS STRUCTURES: No acute or suspicious osseous abnormality.? UPPER ABDOMEN: The spleen is enlarged measuring 13.6 cm in greatest transverse dimension.? No reflux of contrast into the hepatic veins to suggest elevated right heart pressures. CT/CT angio chest PE protocol IMPRESSION: 1.? Limited study but no pulmonary emboli are seen. 2.? Acute pneumonia left lower lobe 3.? Incidentally noted mild splenomegaly ? VTE: negative ECG Data ECG #1: Attestation: I personally reviewed and interpreted this ECG as follows: ECG interpretation date: 11/28/21 ECG interpretation time: 21:19 Interpretation: ST with rate 106, normal pr, normal qrs, normal qt Discharge Plan Discharge Clinical Impression: Pneumonia, Hemoptysis, Thrombocytopenia, Febrile Patient Disposition: Admitted As Inpatient
[2021-11-28] MEDS: Acetaminophen 325 MG TABLET 975 MG PO (22:24)
[2021-11-28] MEDS: ondansetron HCL 4 MG/2 ML VIAL IVPUSH (22:24)
[2021-11-28 22:27] LABS: INTERNATIONAL NORM RATIO 1.1 (0.9-1.1); Prothrombin Time 12.8 SEC (10.0-13.1)
[2021-11-28 22:28] LABS: IDNOW Serial# 16C4AD1C; Influenza A Negative (Negative); Influenza B2 Negative (Negative)
[2021-11-28 22:29] LABS: COVID-19 Test Negative (Negative)
[2021-11-28 22:29] LABS: D Dimer High Sensitivity 439 NG/ML
[2021-11-28] MEDS: iohexoL 350 MG/ML 100 ML INFUS..BTL IV (22:51)
[2021-11-28 23:06] VITALS: BP 132/73; PULSE 106; RESP 20; TEMP 39.4; O2SAT 98
--- NOTE | 2021-11-28 23:07 | PC.NURSE ---
patient just return from ct scan .
[2021-11-28 23:37] VITALS: BP 119/54; PULSE 104; RESP 18; TEMP 38.1; O2SAT 98
--- NOTE | 2021-11-29 00:43 | P.HPHOSP_ITS ---
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 Patient reports that his symptoms started about 3 days ago, when he was doing laundry he thought that he inhaled some fumes in the laundry room, he reports that he developed cough, fever, chills, as well as difficulty breathing. he also noted that he had multiple episodes of hemoptysis with coughing fits Which really scared him And made him come to the hospital. He used his inhalers given his history of asthma with no significant improvement. He denies any chest pain, no palpitations, no abdominal pain nausea or vomiting, no diarrhea constipation, no urinary symptoms and no lower extremity edema. On arrival to the ED patient was found to have a fever of 103.1, heart rate of 113, respiratory rate of 28, slightly hypertensive Labs are significant for WBC count of 7.4, hemoglobin of 9.5, hematocrit 27.2, chloride of 109, bicarb of 22, BUN of 17, creatinine of 0.74, calcium of 7.8, AST of 98, ALT of 55, alk-phos of 180, albumin of 2.8, UA negative for any acute infection. 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) Diabetes Hepatitis C Hepatitis C HTN (hypertension) Family History Mother Diabetes Mother HTN (hypertension) Sister HTN (hypertension) Diabetes Surgical History H/O abdominal surgery Social History Household Members Other:: sister Housing: Apartment Alcohol intake: former Patient Tobacco Use Status: Current everyday Tobacco user Tobacco use type: Cigarette Cigarettes Per Day: 20 Years Smoked: 40 Advance Directives: No Meds Allergies Allergy/AdvReac Type Severity Reaction Status Date / Time No Known Allergies Allergy Verified 11/28/21 21:20 Active Medications: Current Medications Acetaminophen (Acetaminophen 325 Mg Tablet) 650 mg PO Q6H PRN PRN Reason: Pain, Mild (Pain Scale 1-3) Azithromycin 500 mg/ Sodium (Chloride) 250 mls @ 125 mls/hr IV ONCE ONE Stop: 11/29/21 01:46 Ceftriaxone Sodium 1 gm/ (Sodium Chloride) 50 mls @ 100 mls/hr IV Q24H XAVIER Azithromycin 500 mg/ Sodium (Chloride) 250 mls @ 125 mls/hr IV Q24H XAVIER Ondansetron HCl (Ondansetron Hcl 4 Mg/2 Ml Vial) 4 mg IVPUSH Q8H PRN PRN Reason: Nausea and Vomiting Pharmacy Consult (Consult Rx Perform Med Rec) 1 each MISCELLANE ONCE PRN PRN Reason: Consult order Sodium Chloride (0.9 % Sodium Chloride Flush 3 Ml Syringe) [facility] Medications Medication Instructions Recorded Confirmed Last Taken Type buspirone 5 mg tablet 5 mg PO BID anxiety 07/31/21 Unknown History diclofenac sodium 1 % topical gel 2 g topical QID 07/31/21 Unknown History losartan 25 mg tablet 25 mg PO DAILY 07/31/21 Unknown History simvastatin 20 mg tablet 20 mg PO QPM 07/31/21 Unknown History Physical Exam Vital Signs and Narrative: Vital Signs: Last Vital Signs Temp 100.5 F H 11/28/21 23:37 Pulse 104 H 11/28/21 23:37 Resp 18 11/28/21 23:37 BP 119/54 L 11/28/21 23:37 Pulse Ox 98 11/28/21 23:37 O2 Del Method 11/28/21 23:37 BMI result Body Mass Index 27.4 Const: General: cooperative and no acute distress Orientation/consciousness: patient oriented x3 Eyes: General: appearance normal, both eyes and all related structures Pupils: Equal, round and reactive pupils present Resp: Other: crackles on the left lower lobe Effort & Inspection: normal respiratory effort Cardio: Rate: regular rate Rhythm: regular rhythm GI: Palpation (GI): Soft to palpation Auscultation: normal bowel sounds Skin: General skin exam: no rashes or lesions noted Neuro: General: patient oriented x3 Cranial nerves: Yes Equal, round and reactive pupils present Cognition (Neuro): normal cognition Extrem: General: Yes normal to inspection and Yes no pedal edema Results Labs CBC and Chem 7: 11/29/21 04:29 11/29/21 04:29 Labs: Laboratory Results - last 24 hr 11/28/21 11/28/21 11/28/21 21:43 21:43 21:43 MCV 83.8 MCH 29.8 MCHC 35.5 RDW 14.1 Plt Count 77 L MPV 11.0 Immature Gran % (Auto) 0.4 Neut % (Auto) 71.2 Lymph % (Auto) 16.1 L [place] % (Auto) 10.3 Eos % (Auto) 1.8 Baso % (Auto) 0.2 Lymph # (Auto) 0.8 L [place] # (Auto) 0.5 Eos # (Auto) 0.1 Baso # (Auto) 0.0 Abs Immat Gran (auto) 0.02 Absolute Neuts (auto) 3.5 Absolute Nucleated RBC 0.000 Nucleated RBC % (auto) 0.0 PT INR D-Dimer High Sensitivty Anion Gap 11 L Estim Creat Clear Calc 106.3 Estimated GFR > 60 Random Glucose 106 Lactic Acid Calcium 7.8 L D Total Bilirubin 3.7 H AST 98 H ALT 55 H Alkaline Phosphatase 180 H Troponin I High Sens 13.0 Total Protein 6.6 Albumin 2.8 L Urine Color Urine Appearance Urine pH Ur Specific [place] Urine Protein Urine Glucose (UA) Urine Ketones Urine Blood Urine Nitrite Ur Leukocyte Esterase Urine RBC Urine WBC Ur Squamous Epith Cells Urine Bacteria COVID-19 (JULIANNA) COVID-19 Clin Com Influenza Type A (EVELIN) Influenza Type B (EVELIN) Influenza A & B Note 11/28/21 11/28/21 11/28/21 21:43 21:43 21:43 MCV MCH MCHC RDW Plt Count MPV Immature Gran % (Auto) Neut % (Auto) Lymph % (Auto) [place] % (Auto) Eos % (Auto) Baso % (Auto) Lymph # (Auto) [place] # (Auto) Eos # (Auto) Baso # (Auto) Abs Immat Gran (auto) Absolute Neuts (auto) Absolute Nucleated RBC Nucleated RBC % (auto) PT INR D-Dimer High Sensitivty Anion Gap Estim Creat Clear Calc Estimated GFR Random Glucose Lactic Acid 1.9 Calcium Total Bilirubin AST ALT Alkaline Phosphatase Troponin I High Sens Total Protein Albumin Urine Color Urine Appearance Urine pH Ur Specific [place] Urine Protein Urine Glucose (UA) Urine Ketones Urine Blood Urine Nitrite Ur Leukocyte Esterase Urine RBC Urine WBC Ur Squamous Epith Cells Urine Bacteria COVID-19 (JULIANNA) Negative COVID-19 Clin Com See Note Influenza Type A (EVELIN) Negative Influenza Type B (EVELIN) Negative Influenza A & B Note See Note 11/28/21 11/28/21 21:44 22:13 MCV MCH MCHC RDW Plt Count MPV Immature Gran % (Auto) Neut % (Auto) Lymph % (Auto) [place] % (Auto) Eos % (Auto) Baso % (Auto) Lymph # (Auto) [place] # (Auto) Eos # (Auto) Baso # (Auto) Abs Immat Gran (auto) Absolute Neuts (auto) Absolute Nucleated RBC Nucleated RBC % (auto) PT 12.8 INR 1.1 D-Dimer High Sensitivty 439 Anion Gap Estim Creat Clear Calc Estimated GFR Random Glucose Lactic Acid Calcium Total Bilirubin AST ALT Alkaline Phosphatase Troponin I High Sens Total Protein Albumin Urine Color YELLOW Urine Appearance CLEAR Urine pH 5.5 Ur Specific [place] 1.025 Urine Protein NEG Urine Glucose (UA) NEG Urine Ketones NEG Urine Blood 3+ H Urine Nitrite NEG Ur Leukocyte Esterase NEG Urine RBC 5-9 H Urine WBC 0 Ur Squamous Epith Cells NONE Urine Bacteria 1+ COVID-19 (JULIANNA) COVID-19 Clin Com Influenza Type A (EVELIN) Influenza Type B (EVELIN) Influenza A & B Note Imaging Radiologist's Impressions: Impressions Chest X-Ray 11/28/21 21:55 IMPRESSION: No acute pulmonary process identified. Chest CTA 11/28/21 22:54 IMPRESSION: 1. Limited study but no pulmonary emboli are seen. 2. Acute pneumonia left lower lobe 3. Incidentally noted mild splenomegaly VTE: negative Assessment and Plan (1) Sepsis: Status: Acute (2) Pneumonia: Status: Acute (3) Hemoptysis: Status: Acute (4) Thrombocytopenia: Status: Acute Plan 56-year-old male with past medical history of diabetes, liver cirrhosis, secondary to hep C, hypertension who presents to the hospital with complaints of cough, fever, hemoptysis found to have acute pneumonia # sepsis - likely source pneumonia - has tachycardia, febrile, tachypnea - will treat with IV antibiotic - follow cultures # acute pneumonia - likely bacterial - meets sepsis criteria - no hypoxia - COVID and flu negative - will treat with IV antibiotics - follow cultures # Hemoptysis - other secondary to cough in the setting of thrombocytopenia - stable hemoglobin # chronic thrombocytopenia - likely in the setting of liver disease and contributing to his hemoptysis - follow platelet count # hypertension - stable - will continue his home medications # hepatitis-C - currently being treated - will continue current treatment DVT prophylaxis: SCDs in the setting of hemoptysis and thrombocytopenia given the sepsis and requirement for IV antibiotics patient will require minimum 2 at night hospital stay for further management and monitoring Quality Stroke Does the patient have a stroke diagnosis?: No VTE Prior VTE?: No VTE Risk Level:: Medical - moderate - high VTE Device Contraindication: N/A - Device Ordered VTE Drug Contraindication: Treatment Not Indicated
[2021-11-29] MEDS: Azithromycin 500 MG in 0.9 % Sodium Chloride 250 ML 125 MG IV (01:03)
[2021-11-29 01:16] VITALS: BP 106/54; PULSE 105; RESP 16; TEMP 37.5; O2SAT 98
--- NOTE | 2021-11-29 01:47 | PC.NURSE ---
ambulated to bathroom with steady gait.
[2021-11-29 04:39] LABS: MANUAL DIFF FLAG NO
[2021-11-29 04:40] LABS: Basophils Percent Auto 0.1 % (0-2); Eosinophils Absolute Auto 0.1 X10*3/uL (0.0-0.4); Eosinophils Percent Auto 0.8 % (0-4); Hematocrit 27.2 % (42.0-52.0); Hemoglobin 9.5 g/dl (14.0-18.0); Imm Gran Abs Auto 0.02 X10*3/uL (0.00-0.03); Imm Gran Pct Auto 0.3 % (0.0-0.4); Lymphocytes Absolute Auto 1.1 X10*3/uL (1.2-4.9); Lymphocytes Percent Auto 15.1 % (20-40); Mean Corpuscular HGB Conc 34.9 g/dl (31.0-36.0); Mean Corpuscular Hemoglobin 29.3 pg (27.0-33.0); Mean Platelet Volume 10.2 fL (9.4-12.4); Monocytes Absolute Auto 0.7 X10*3/uL (0.1-1.2); Monocytes Percent Auto 9.4 % (2-11); Neutrophils Absolute Auto 5.5 x10*3/uL (2.0-8.3); Neutrophils Percent Auto 74.3 % (45-73); Red Blood Count 3.24 X10*6/uL (4.60-5.80); White Blood Count 7.4 X10*3/uL (4.8-10.8)
[2021-11-29 04:42] LABS: Platelet Count 66 X10*3/uL (160-400)
[2021-11-29 05:06] LABS: Anion Gap 11 (12-20); Blood Urea Nitrogen 17 mg/dL (9-16); Calcium 7.3 mg/dL (8.4-10.2); Carbon Dioxide 20 mmol/L (22-29); Chloride 109 mmol/L (96-108); Creatinine Clr Calc Pharmacy 106.3; Estimated Glomerular Filt Rate > 60; Glucose Random 79 mg/dL (60-115); Potassium 3.7 mmol/L (3.3-5.1); Sodium 136 mmol/L (135-145)
[2021-11-29] MEDS: Calcium Gluconate/NaCl,Iso-Osm 2 GM/100 ML PLAST..BAG IV (06:41)
--- NOTE | 2021-11-29 06:45 | PC.NURSE ---
pt a&o, no sob or chest pain. pt is spitting up dark blood. provider is aware. pt is trying to get a hold of family for medication list for med rec to confirm, due to changes to his meds.
[2021-11-29 07:29] LABS: Glucose, Whole Blood 76 mg/dL (60-115)
--- NOTE | 2021-11-29 08:57 | PHA.MEDREC ---
Pharmacy Consult ? Medication Reconciliation Pharmacy has completed the medication reconciliation.
[2021-11-29 10:10] VITALS: BP 118/57; PULSE 91; RESP 18; O2SAT 94
[2021-11-29 12:28] VITALS: BP 115/56; PULSE 91; RESP 19; TEMP 37.1; O2SAT 96
--- NOTE | 2021-11-29 12:28 | PM.EVENT ---
Event Note Date of Service: 11/29/21 Event Note: Day Attending Brief Note 56 yo M admitted for hemoptysis, found to to have pneumonia Will send for sputum cultures continue pulm continue antibiotics remainder as per H&P
[2021-11-29 12:33] LABS: Glucose, Whole Blood 86 mg/dL (60-115)
--- NOTE | 2021-11-29 14:48 | PC.NURSE ---
PT TOOK IV OUT AND IS FULLY DRESSED AT THIS TIME, PT IS SPEAKING IN [place] STATING HE IS LEAVING HOSPITAL. PROP SETTER CALLED AND DR CRUZ NOTIFIED OF PATIENTS WISHES. PT ENCOURAGED TO STAY TO SPEAK WITH DOCTOR.
--- NOTE | 2021-11-29 14:55 | PC.NURSE ---
PLUG DRILL OPERATOR AT BEDSIDE, THIS RN EXPLAINED TO PATIENTS THE HEALTH RISKS OF LEAVING AMA, PT STATES HE IS STILL NOT STAYING IN HOSPITAL AND CANNOT BE HERE ANY LONGER.
--- NOTE | 2021-11-29 16:33 | PM.EVENT ---
Event Note Date of Service: 11/29/21 Event Note: Informed by the patient's nurse that he wanted to be discharged from the hospital. I requested the nurse to call the mass spectrometry manager and that I would come and inform him of the risks of leaving against medical advice. However, the patient did not stay until I arrived and left without being seen by me.
--- NOTE | 2021-11-29 16:35 | P.DS_ITS ---
DS: Providers Provider Date of Service: 11/29/21 Date of admission: 11/29/21 00:37 Primary care physician: [facility] Consults: 11/29/21 12:25 Consult to Pulmonology Routine Consulting Provider: Jolie Ocasio Reason for consultation: pneumonia, hemoptysis DS: Diagnosis Discharge Diagnosis (1) Sepsis: Status: Acute (2) Pneumonia: Status: Acute (3) Hemoptysis: Status: Acute (4) Thrombocytopenia: Status: Acute DS: Summary Hospital Course Hospital Course: Patient was admitted for sepsis due to pneumonia. He also had hemoptysis. Plan was for IV antibiotics and pulmonary evaluation. However the patient decided to leave against medical advice. For the full details surrounding this please see the separate event note. I was not able to speak with him prior to discharge as he did not wait for me to arrive. Time Spent with Patient Time attestation: Total time spent providing and/or coordinating discharge services: Discharge coordination time: Less than 30 minutes Quality: Safe Use of Opioids Does Pt have an Active Cancer Diagnosis on the Problem List?: No Quality: Stroke Does the patient have a stroke diagnosis?: No Physical Exam Vital Signs: Vital Signs: Last Vital Signs Temp 98.8 F 11/29/21 12:28 Pulse 91 11/29/21 12:28 Resp 19 11/29/21 12:28 BP 115/56 L 11/29/21 12:28 Pulse Ox 96 11/29/21 12:28 O2 Del Method 11/29/21 12:28 BMI result Body Mass Index 27.4 Const: Other: left AMA DS: Data Data Completed and Pending Labs on day of discharge: Laboratory Results - last 24 hr 11/28/21 11/28/21 11/28/21 21:43 21:43 21:43 WBC 5.0 RBC 3.59 L Hgb 10.7 L Hct 30.1 L MCV 83.8 MCH 29.8 MCHC 35.5 RDW 14.1 Plt Count 77 L MPV 11.0 Immature Gran % (Auto) 0.4 Neut % (Auto) 71.2 Lymph % (Auto) 16.1 L [place] % (Auto) 10.3 Eos % (Auto) 1.8 Baso % (Auto) 0.2 Lymph # (Auto) 0.8 L [place] # (Auto) 0.5 Eos # (Auto) 0.1 Baso # (Auto) 0.0 Abs Immat Gran (auto) 0.02 Absolute Neuts (auto) 3.5 Absolute Nucleated RBC 0.000 Nucleated RBC % (auto) 0.0 PT INR D-Dimer High Sensitivty Sodium 137 Potassium 3.7 Chloride 108 Carbon Dioxide 22 Anion Gap 11 L BUN 16 D Creatinine 0.74 Estim Creat Clear Calc 106.3 Estimated GFR > 60 POC Glucose Random Glucose 106 Lactic Acid Calcium 7.8 L D Total Bilirubin 3.7 H AST 98 H ALT 55 H Alkaline Phosphatase 180 H Troponin I High Sens 13.0 Total Protein 6.6 Albumin 2.8 L Urine Color Urine Appearance Urine pH Ur Specific [place] Urine Protein Urine Glucose (UA) Urine Ketones Urine Blood Urine Nitrite Ur Leukocyte Esterase Urine RBC Urine WBC Ur Squamous Epith Cells Urine Bacteria COVID-19 (JULIANNA) COVID-19 Clin Com Influenza Type A (EVELIN) Influenza Type B (EVELIN) Influenza A & B Note 11/28/21 11/28/21 11/28/21 21:43 21:43 21:43 WBC RBC Hgb Hct MCV MCH MCHC RDW Plt Count MPV Immature Gran % (Auto) Neut % (Auto) Lymph % (Auto) [place] % (Auto) Eos % (Auto) Baso % (Auto) Lymph # (Auto) [place] # (Auto) Eos # (Auto) Baso # (Auto) Abs Immat Gran (auto) Absolute Neuts (auto) Absolute Nucleated RBC Nucleated RBC % (auto) PT INR D-Dimer High Sensitivty Sodium Potassium Chloride Carbon Dioxide Anion Gap BUN Creatinine Estim Creat Clear Calc Estimated GFR POC Glucose Random Glucose Lactic Acid 1.9 Calcium Total Bilirubin AST ALT Alkaline Phosphatase Troponin I High Sens Total Protein Albumin Urine Color Urine Appearance Urine pH Ur Specific [place] Urine Protein Urine Glucose (UA) Urine Ketones Urine Blood Urine Nitrite Ur Leukocyte Esterase Urine RBC Urine WBC Ur Squamous Epith Cells Urine Bacteria COVID-19 (JULIANNA) Negative COVID-19 Clin Com See Note Influenza Type A (EVELIN) Negative Influenza Type B (EVELIN) Negative Influenza A & B Note See Note 11/28/21 11/28/21 11/29/21 21:44 22:13 04:29 WBC 7.4 RBC 3.24 L Hgb 9.5 L Hct 27.2 L MCV 84.0 MCH 29.3 MCHC 34.9 RDW 14.0 Plt Count 66 L MPV 10.2 Immature Gran % (Auto) 0.3 Neut % (Auto) 74.3 H Lymph % (Auto) 15.1 L [place] % (Auto) 9.4 Eos % (Auto) 0.8 Baso % (Auto) 0.1 Lymph # (Auto) 1.1 L [place] # (Auto) 0.7 Eos # (Auto) 0.1 Baso # (Auto) 0.0 Abs Immat Gran (auto) 0.02 Absolute Neuts (auto) 5.5 Absolute Nucleated RBC 0.000 Nucleated RBC % (auto) 0.0 PT 12.8 INR 1.1 D-Dimer High Sensitivty 439 Sodium Potassium Chloride Carbon Dioxide Anion Gap BUN Creatinine Estim Creat Clear Calc Estimated GFR POC Glucose Random Glucose Lactic Acid Calcium Total Bilirubin AST ALT Alkaline Phosphatase Troponin I High Sens Total Protein Albumin Urine Color YELLOW Urine Appearance CLEAR Urine pH 5.5 Ur Specific [place] 1.025 Urine Protein NEG Urine Glucose (UA) NEG Urine Ketones NEG Urine Blood 3+ H Urine Nitrite NEG Ur Leukocyte Esterase NEG Urine RBC 5-9 H Urine WBC 0 Ur Squamous Epith Cells NONE Urine Bacteria 1+ COVID-19 (JULIANNA) COVID-19 Clin Com Influenza Type A (EVELIN) Influenza Type B (EVELIN) Influenza A & B Note 11/29/21 11/29/21 11/29/21 04:29 07:23 12:26 WBC RBC Hgb Hct MCV MCH MCHC RDW Plt Count MPV Immature Gran % (Auto) Neut % (Auto) Lymph % (Auto) [place] % (Auto) Eos % (Auto) Baso % (Auto) Lymph # (Auto) [place] # (Auto) Eos # (Auto) Baso # (Auto) Abs Immat Gran (auto) Absolute Neuts (auto) Absolute Nucleated RBC Nucleated RBC % (auto) PT INR D-Dimer High Sensitivty Sodium 136 Potassium 3.7 Chloride 109 H Carbon Dioxide 20 L Anion Gap 11 L BUN 17 H Creatinine 0.74 Estim Creat Clear Calc 106.3 Estimated GFR > 60 POC Glucose 76 86 Random Glucose 79 Lactic Acid Calcium 7.3 L D Total Bilirubin AST ALT Alkaline Phosphatase Troponin I High Sens Total Protein Albumin Urine Color Urine Appearance Urine pH Ur Specific [place] Urine Protein Urine Glucose (UA) Urine Ketones Urine Blood Urine Nitrite Ur Leukocyte Esterase Urine RBC Urine WBC Ur Squamous Epith Cells Urine Bacteria COVID-19 (JULIANNA) COVID-19 Clin Com Influenza Type A (EVELIN) Influenza Type B (EVELIN) Influenza A & B Note Discharge Plan Discharge Patient Disposition: Left Against Medical Advice Discharge Diagnosis: Sepsis, Pneumonia, Hemoptysis Referrals: [facility] [Primary Care Provider] - 1 Week Discharge Medications: No Action hydroxyzine HCl 25 mg tablet 1 tab PO TID PRN (Reason: itch) omeprazole 20 mg capsule,delayed release(DR/EC) 1 cap PO DAILY albuterol sulfate [ProAir HFA] 90 mcg/actuation HFA aerosol inhaler 2 puff PO Q4-6H PRN (Reason: Shortness Of Breath) losartan-hydrochlorothiazide 50-12.5 mg tablet 1 tab PO DAILY diclofenac sodium 1 % gel 2 g topical QID simvastatin 20 mg tablet 20 mg PO QPM buspirone 5 mg tablet 5 mg PO BID Mavyret 100-40 mg tablet 3 tab PO DAILY 56 Days Qty: 168 0RF Rx Instructions: must administer with a meal/food Discharge Orders: Discharge Order (Routine); Ordered 11/29/21 Ordered By: Akbar May Care Plan Goals: left AMA Health Concerns: left AMA Plan of Treatment: left AMA Assessment: left AMA
== END 2021-11-29 17:00 | disposition left against medical advice (07) | DRG 720 ==
LOC: HO.ED 23:55 → HO.EDOVER 11-29 00:56
PROVIDERS: Emergency Medicine; Nurse Practitioner Family; Admitting Provider Internal Medicine; Emergency Provider Internal Medicine; PCP Nurse Practitioner; Visit Provider Family Medicine
DX: A41.9 Sepsis, unspecified organism (principal); J15.9 Unspecified bacterial pneumonia; D69.59 Other secondary thrombocytopenia; R04.2 Hemoptysis; E11.9 Type 2 diabetes mellitus without complications; B19.20 Unspecified viral hepatitis C without hepatic coma; K74.60 Unspecified cirrhosis of liver; E78.5 Hyperlipidemia, unspecified; F17.210 Nicotine dependence, cigarettes, uncomplicated; I10 Essential (primary) hypertension; J45.909 Unspecified asthma, uncomplicated; Z20.822 Contact with and (suspected) exposure to COVID-19; Z71.6 Tobacco abuse counseling; Z79.899 Other long term (current) drug therapy
CPT/HCPCS: 36415; 71046; 71275; 80048; 80053; 81001; 82947; 83605; 84484; 85025; 85379; 85610; 87040; 87070; 87205; 87502; 87635; 93005; 96365; 96367; 96375; 99218; 99285; J0456; J0610; J0696; J2405; Q9967

== ENCOUNTER → 2021-12-13 08:34 | Outpatient (BNVA) | payer MEDICAID, SELFPAY | PROVIDERS: PCP Nurse Practitioner; Visit Provider Internal Medicine Endocrinology, Diabetes & Metabolism | DX: E05.90 Thyrotoxicosis, unspecified without thyrotoxic crisis or storm (principal); R94.6 Abnormal results of thyroid function studies | CPT/HCPCS: 36415; 80076; 83520; 84439; 84443; 84481; 85025; 99202 ==

== ENCOUNTER 2021-12-13 09:37 | Outpatient (REF) | payer MEDICAID, SELFPAY ==
[2021-12-13 10:56] LABS: MANUAL DIFF FLAG NO
[2021-12-13 11:01] LABS: Basophils Percent Auto 0.6 % (0-2); Eosinophils Absolute Auto 0.1 X10*3/uL (0.0-0.4); Eosinophils Percent Auto 3.2 % (0-4); Hematocrit 32.8 % (42.0-52.0); Hemoglobin 11.3 g/dl (14.0-18.0); Imm Gran Abs Auto 0.01 X10*3/uL (0.00-0.03); Imm Gran Pct Auto 0.3 % (0.0-0.4); Lymphocytes Absolute Auto 1.2 X10*3/uL (1.2-4.9); Lymphocytes Percent Auto 40.3 % (20-40); Mean Corpuscular HGB Conc 34.5 g/dl (31.0-36.0); Mean Corpuscular Hemoglobin 29.8 pg (27.0-33.0); Mean Corpuscular Volume 86.5 fL (80.0-98.0); Mean Platelet Volume 12.9 fL (9.4-12.4); Monocytes Absolute Auto 0.4 X10*3/uL (0.1-1.2); Monocytes Percent Auto 13.6 % (2-11); Neutrophils Absolute Auto 1.3 x10*3/uL (2.0-8.3); Red Blood Count 3.79 X10*6/uL (4.60-5.80); Red Cell Distribution Width 15.1 % (11.0-16.0); White Blood Count 3.1 X10*3/uL (4.8-10.8)
[2021-12-13 11:02] LABS: Platelet Count 92 X10*3/uL (160-400)
[2021-12-13 11:17] LABS: Alanine Aminotransferase 46 U/L (0-40); Albumin Level 2.8 g/dL (3.5-5.0); Alkaline Phosphatase 212 U/L (39-117); Aspartate Amino Transferase 81 U/L (5-37); Total Protein 7.1 g/dL (6.5-8.0)
[2021-12-13 11:46] LABS: Free T4 (Free Thyroxine) 3.48 ng/dL (0.71-1.85); Thyroid Stimulating Hormone < 0.01 uIU/mL (0.32-4.0)
[2021-12-15 01:03] LABS: Triiodothyronine T3 Free 15.4 pg/mL (2.3-4.2)
[2021-12-20 14:43] LABS: Thyrotropin Receptor Antibody 23.25 IU/L (<=2.00)
== END 2021-12-13 09:38 | disposition home or self-care (01) ==
LOC: HO.10HDL 09:37
PROVIDERS: Visit Provider Internal Medicine Endocrinology, Diabetes & Metabolism
DX: E05.90 Thyrotoxicosis, unspecified without thyrotoxic crisis or storm (principal); R94.6 Abnormal results of thyroid function studies
CPT/HCPCS: 36415; 80076; 83520; 84439; 84443; 84481; 85025

== ENCOUNTER 2021-12-20 12:43 | Outpatient (REF) | payer MEDICAID, SELFPAY ==
[2021-12-23 14:12] LABS: HCV Log PCR <1.18 NOT DETECTED Log IU/mL (NOT DETECTED); HepC Viral Load <15 NOT DETECTED IU/mL (NOT DETECTED)
== END 2021-12-20 12:44 | disposition home or self-care (01) ==
LOC: HO.LAB 12:43
PROVIDERS: PCP Nurse Practitioner; Visit Provider Internal Medicine
DX: B19.20 Unspecified viral hepatitis C without hepatic coma (principal); K74.69 Other cirrhosis of liver
CPT/HCPCS: 36415; 87522

== ENCOUNTER 2022-01-04 15:37 | Outpatient (REF) | payer MEDICAID, SELFPAY | END 2022-01-04 15:38 | disposition home or self-care (01) | LOC: HO.US 15:37 | PROVIDERS: Visit Provider Internal Medicine | DX: B19.20 Unspecified viral hepatitis C without hepatic coma (principal) | CPT/HCPCS: 99212 ==

== ENCOUNTER → 2022-01-15 14:12 | Outpatient (REF) | payer MEDICAID, SELFPAY ==
[2022-01-15 14:41] LABS: MANUAL DIFF FLAG NO
[2022-01-15 14:53] LABS: Basophils Percent Auto 0.4 % (0-2); Eosinophils Absolute Auto 0.1 X10*3/uL (0.0-0.4); Eosinophils Percent Auto 4.3 % (0-4); Hematocrit 28.3 % (42.0-52.0); Hemoglobin 9.6 g/dl (14.0-18.0); Imm Gran Abs Auto 0.01 X10*3/uL (0.00-0.03); Imm Gran Pct Auto 0.4 % (0.0-0.4); Lymphocytes Absolute Auto 0.9 X10*3/uL (1.2-4.9); Lymphocytes Percent Auto 33.7 % (20-40); Mean Corpuscular HGB Conc 33.9 g/dl (31.0-36.0); Mean Corpuscular Hemoglobin 30.8 pg (27.0-33.0); Mean Corpuscular Volume 90.7 fL (80.0-98.0); Monocytes Absolute Auto 0.5 X10*3/uL (0.1-1.2); Monocytes Percent Auto 18.6 % (2-11); Neutrophils Absolute Auto 1.2 x10*3/uL (2.0-8.3); Neutrophils Percent Auto 42.6 % (45-73); Red Blood Count 3.12 X10*6/uL (4.60-5.80); Red Cell Distribution Width 16.8 % (11.0-16.0); White Blood Count 2.8 X10*3/uL (4.8-10.8)
[2022-01-15 14:57] LABS: Platelet Count 66 X10*3/uL (160-400)
[2022-01-15 15:16] LABS: Alanine Aminotransferase 50 U/L (0-40); Albumin Level 2.8 g/dL (3.5-5.0); Alkaline Phosphatase 196 U/L (39-117); Aspartate Amino Transferase 106 U/L (5-37); Bilirubin Direct 2.4 mg/dL (0.0-0.5); Bilirubin Total 3.4 mg/dL (0.0-1.0); Total Protein 6.7 g/dL (6.5-8.0)
[2022-01-15 15:33] LABS: Free T4 (Free Thyroxine) 1.98 ng/dL (0.71-1.85); Thyroid Stimulating Hormone < 0.01 uIU/mL (0.32-4.0)
[2022-01-17 02:53] LABS: Triiodothyronine T3 Free 5.9 pg/mL (2.3-4.2)
== END ==
LOC: HO.CARD 14:12
PROVIDERS: Absent Provider Internal Medicine Endocrinology, Diabetes & Metabolism; PCP Nurse Practitioner; Visit Provider Internal Medicine
DX: E05.90 Thyrotoxicosis, unspecified without thyrotoxic crisis or storm (principal); R94.6 Abnormal results of thyroid function studies; R00.2 Palpitations; I42.9 Cardiomyopathy, unspecified
CPT/HCPCS: 36415; 80076; 84439; 84443; 84481; 85025

== ENCOUNTER 2022-01-15 14:42 | Emergency (ER) | payer MEDICAID, SELFPAY ==
[2022-01-15 14:47] VITALS: BP 121/51; PULSE 82; RESP 18; TEMP 37.3; O2SAT 96; BMI 27.4
--- NOTE | 2022-01-15 14:51 | ECG_ITS ---
Test Reason : HEART PALP Blood Pressure : / mmHG Vent. Rate : 080 BPM Atrial Rate : 080 BPM P-R Int : 186 ms QRS Dur : 092 ms QT Int : 410 ms P-R-T Axes : 076 083 041 degrees QTc Int : 472 ms Normal sinus rhythm Normal ECG When compared with ECG of 28-NOV-2021 21:19, Heart rate has decreased Referred By: Generic ED Physician Electronically Signed By:YARON HENSLEY
[2022-01-15 15:01] LABS: MANUAL DIFF FLAG NO
[2022-01-15 15:03] LABS: Basophils Percent Auto 0.4 % (0-2); Eosinophils Absolute Auto 0.1 X10*3/uL (0.0-0.4); Eosinophils Percent Auto 4.4 % (0-4); Hematocrit 26.9 % (42.0-52.0); Hemoglobin 9.2 g/dl (14.0-18.0); Imm Gran Abs Auto 0.01 X10*3/uL (0.00-0.03); Imm Gran Pct Auto 0.4 % (0.0-0.4); Lymphocytes Absolute Auto 0.9 X10*3/uL (1.2-4.9); Lymphocytes Percent Auto 32.6 % (20-40); Mean Corpuscular HGB Conc 34.2 g/dl (31.0-36.0); Mean Corpuscular Hemoglobin 30.7 pg (27.0-33.0); Mean Corpuscular Volume 89.7 fL (80.0-98.0); Mean Platelet Volume 9.6 fL (9.4-12.4); Monocytes Absolute Auto 0.4 X10*3/uL (0.1-1.2); Monocytes Percent Auto 16.1 % (2-11); Neutrophils Absolute Auto 1.3 x10*3/uL (2.0-8.3); Neutrophils Percent Auto 46.1 % (45-73); Red Cell Distribution Width 16.5 % (11.0-16.0); White Blood Count 2.7 X10*3/uL (4.8-10.8)
[2022-01-15 15:14] LABS: Platelet Count 58 X10*3/uL (160-400)
[2022-01-15 15:22] LABS: Anion Gap 13 (12-20); Blood Urea Nitrogen 9 mg/dL (9-16); Calcium 8.2 mg/dL (8.4-10.2); Carbon Dioxide 20 mmol/L (22-29); Chloride 109 mmol/L (96-108); Creatinine Clr Calc Pharmacy 109.3; Estimated Glomerular Filt Rate > 60; Glucose Random 88 mg/dL (60-115); Potassium 3.9 mmol/L (3.3-5.1); Sodium 138 mmol/L (135-145)
--- NOTE | 2022-01-15 16:23 | ED_ITS ---
HPI - General Adult General Chief complaint: Extremity Problem Stated complaint: swelling on legs, belly, penis Related Data Home Medications Medication Instructions Recorded Confirmed buspirone 5 mg tablet 5 mg PO BID anxiety 07/31/21 01/15/22 diclofenac sodium 1 % topical gel 2 g topical QID 07/31/21 01/15/22 simvastatin 20 mg tablet 20 mg PO QPM 07/31/21 01/15/22 albuterol sulfate 90 mcg/actuation 2 puff PO Q4-6H PRN Shortness Of 11/29/21 01/15/22 aerosol inhaler (ProAir HFA) Breath hydroxyzine HCl 25 mg tablet 1 tab PO TID PRN itch 11/29/21 01/15/22 losartan 50 mg-hydrochlorothiazide 1 tab PO DAILY 11/29/21 01/15/22 12.5 mg tablet omeprazole 20 mg capsule,delayed 1 cap PO DAILY 11/29/21 01/15/22 release blood sugar diagnostic (FreeStyle #10 ea 12/13/21 01/15/22 Lite Strips) blood-glucose meter (FreeStyle #1 ea 12/13/21 01/15/22 [place] Lite kit) lancets 33 gauge (TRUEplus Lancets) #100 ea 12/13/21 01/15/22 Previous Rx's Medication Instructions Recorded glecaprevir 100 mg-pibrentasvir 40 3 tab PO DAILY 8 weeks #168 tabs 09/28/21 mg tablet (Mavyret) metoprolol succinate 50 mg 50 mg PO DAILY #30 tabs 12/13/21 tablet,extended release 24 hr methimazole 10 mg tablet 20 mg PO DAILY #60 tabs 12/21/21 Allergies Allergy/AdvReac Type Severity Reaction Status Date / Time No Known Allergies Allergy Verified 01/15/22 13:58 [facility] Past Medical History Attestation statement: The following information was validated with the patient. 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) Diabetes Hepatitis C Hepatitis C HTN (hypertension) Hyperthyroidism determined by thyroid function test Surgical History H/O abdominal surgery Family History Family History Mother Diabetes Mother HTN (hypertension) Sister HTN (hypertension) Diabetes Social History Social History Household Members Other:: sister Housing: Apartment Alcohol intake: former Patient Tobacco Use Status: Current everyday Tobacco user Tobacco use type: Cigarette Cigarettes Per Day: 20 Years Smoked: 40 Physical Exam ED Vital Signs: Vital Signs - 24 hr 01/15/22 14:47 Temperature 99.2 F Pulse Rate 82 Respiratory Rate 18 Blood Pressure 121/51 L Pulse Oximetry 96 Oxygen Delivery Method Room Air BMI result Body Mass Index 27.4 Medical Decision Making Lab Data Result diagrams: 01/15/22 14:57 01/15/22 14:57 Labs: Lab Results 01/15/22 01/15/22 Range/Units 14:57 14:57 WBC 2.7 L (4.8-10.8) X10*3/uL RBC 3.00 L (4.60-5.80) X10*6/uL Hgb 9.2 L (14.0-18.0) g/dl Hct 26.9 L (42.0-52.0) % MCV 89.7 (80.0-98.0) fL MCH 30.7 (27.0-33.0) pg MCHC 34.2 (31.0-36.0) g/dl RDW 16.5 H (11.0-16.0) % Plt Count 58 L (160-400) X10*3/uL MPV 9.6 (9.4-12.4) fL Immature Gran % (Auto) 0.4 (0.0-0.4) % Neut % (Auto) 46.1 (45-73) % Lymph % (Auto) 32.6 (20-40) % [place] % (Auto) 16.1 H (2-11) % Eos % (Auto) 4.4 H (0-4) % Baso % (Auto) 0.4 (0-2) % Lymph # (Auto) 0.9 L (1.2-4.9) X10*3/uL [place] # (Auto) 0.4 (0.1-1.2) X10*3/uL Eos # (Auto) 0.1 (0.0-0.4) X10*3/uL Baso # (Auto) 0.0 (0.0-0.2) X10*3/uL Abs Immat Gran (auto) 0.01 (0.00-0.03) X10*3/uL Absolute Neuts (auto) 1.3 L (2.0-8.3) x10*3/uL Absolute Nucleated RBC 0.000 (0.0-0.012) X10*3/uL Nucleated RBC % (auto) 0.0 (0.0-0.2) /100WBC Sodium 138 (135-145) mmol/L Potassium 3.9 (3.3-5.1) mmol/L Chloride 109 H (96-108) mmol/L Carbon Dioxide 20 L (22-29) mmol/L Anion Gap 13 (12-20) BUN 9 (9-16) mg/dL Creatinine 0.72 (0.5-1.4) mg/dL Estim Creat Clear Calc 109.3 Estimated GFR > 60 Random Glucose 88 (60-115) mg/dL Calcium 8.2 L D (8.4-10.2) mg/dL Discharge Plan Discharge Prescriptions: No Action metoprolol succinate 50 mg tablet extended release 24 hr 50 mg PO DAILY Qty: 30 5RF methimazole 10 mg tablet 20 mg PO DAILY Qty: 60 5RF hydroxyzine HCl 25 mg tablet 1 tab PO TID PRN (Reason: itch) omeprazole 20 mg capsule,delayed release(DR/EC) 1 cap PO DAILY albuterol sulfate [ProAir HFA] 90 mcg/actuation HFA aerosol inhaler 2 puff PO Q4-6H PRN (Reason: Shortness Of Breath) losartan-hydrochlorothiazide 50-12.5 mg tablet 1 tab PO DAILY diclofenac sodium 1 % gel 2 g topical QID simvastatin 20 mg tablet 20 mg PO QPM buspirone 5 mg tablet 5 mg PO BID Mavyret 100-40 mg tablet 3 tab PO DAILY 56 Days Qty: 168 0RF Rx Instructions: must administer with a meal/food (DME) lancets [TRUEplus Lancets] 33 gauge misc See Rx Instructions Not Applicable BID Qty: 100 Rx Instructions: As directed (DME) blood-glucose meter [FreeStyle [place] Lite] Kit See Rx Instructions .ROUTE BID Qty: 1 Rx Instructions: As directed (DME) FreeStyle Lite Strips Strip See Rx Instructions Not Applicable BID Qty: 10 Rx Instructions: As directed
== END 2022-01-15 16:58 | disposition left against medical advice (07) ==
PROVIDERS: Emergency Provider Emergency Medicine
DX: R19.00 Intra-abdominal and pelvic swelling, mass and lump, unspecified site (principal); R06.02 Shortness of breath; I10 Essential (primary) hypertension; E11.9 Type 2 diabetes mellitus without complications; F17.210 Nicotine dependence, cigarettes, uncomplicated
CPT/HCPCS: 36415; 80048; 85025; 93005; 99212; 99283

== ENCOUNTER 2022-02-27 14:36 | Outpatient (REF) | payer MEDICAID, SELFPAY ==
[2022-02-27 16:20] LABS: MANUAL DIFF FLAG SCAN; Mean Corpuscular Hemoglobin 30.2 pg (27.0-33.0); PLT CLUMP 1; Red Cell Distribution Width 13.7 % (11.0-16.0); SCAN SMEAR FLAG 1
[2022-02-27 16:22] LABS: Basophils Percent Auto 0.4 % (0-2); Eosinophils Absolute Auto 0.1 X10*3/uL (0.0-0.4); Eosinophils Percent Auto 2.9 % (0-4); Hematocrit 37.8 % (42.0-52.0); Lymphocytes Absolute Auto 0.9 X10*3/uL (1.2-4.9); Lymphocytes Percent Auto 38.3 % (20-40); Mean Corpuscular HGB Conc 34.4 g/dl (31.0-36.0); Mean Corpuscular Volume 87.9 fL (80.0-98.0); Monocytes Absolute Auto 0.4 X10*3/uL (0.1-1.2); Monocytes Percent Auto 18.3 % (2-11); Neutrophils Percent Auto 40.1 % (45-73); White Blood Count 2.4 X10*3/uL (4.8-10.8)
[2022-02-27 16:43] LABS: Alanine Aminotransferase 61 U/L (0-40); Albumin Level 2.8 g/dL (3.5-5.0); Alkaline Phosphatase 200 U/L (39-117); Aspartate Amino Transferase 112 U/L (5-37); Bilirubin Direct 1.4 mg/dL (0.0-0.5); Bilirubin Total 2.3 mg/dL (0.0-1.0); Total Protein 6.6 g/dL (6.5-8.0)
[2022-02-27 16:52] LABS: SLIDE REVIEW VERIFIED
[2022-02-27 17:04] LABS: Free T4 (Free Thyroxine) 2.77 ng/dL (0.71-1.85); Thyroid Stimulating Hormone < 0.01 uIU/mL (0.32-4.0)
[2022-03-01 16:46] LABS: Triiodothyronine T3 Free 14.9 pg/mL (2.3-4.2)
== END 2022-02-27 14:37 | disposition home or self-care (01) ==
LOC: HO.LAB 14:36
PROVIDERS: Visit Provider Internal Medicine Endocrinology, Diabetes & Metabolism
DX: E05.90 Thyrotoxicosis, unspecified without thyrotoxic crisis or storm (principal); R94.6 Abnormal results of thyroid function studies
CPT/HCPCS: 36415; 80076; 84439; 84443; 84481; 85025

== ENCOUNTER 2022-03-04 12:19 | Outpatient (REF) | payer MEDICAID, SELFPAY ==
[2022-03-04 13:05] LABS: Eosinophils Absolute Auto 0.1 X10*3/uL (0.0-0.4); Eosinophils Percent Auto 3.6 % (0-4); Hematocrit 36.8 % (42.0-52.0); Hemoglobin 12.8 g/dl (14.0-18.0); Lymphocytes Absolute Auto 0.9 X10*3/uL (1.2-4.9); Lymphocytes Percent Auto 40.5 % (20-40); MANUAL DIFF FLAG SCAN; Mean Corpuscular HGB Conc 34.8 g/dl (31.0-36.0); Mean Corpuscular Hemoglobin 30.6 pg (27.0-33.0); Mean Platelet Volume 11.4 fL (9.4-12.4); Monocytes Absolute Auto 0.4 X10*3/uL (0.1-1.2); Monocytes Percent Auto 18.9 % (2-11); Neutrophils Absolute Auto 0.8 x10*3/uL (2.0-8.3); Platelet Count 82 X10*3/uL (160-400); Red Blood Count 4.18 X10*6/uL (4.60-5.80); Red Cell Distribution Width 13.6 % (11.0-16.0); SCAN SMEAR FLAG 1; White Blood Count 2.2 X10*3/uL (4.8-10.8)
[2022-03-04 13:23] LABS: SLIDE REVIEW VERIFIED
[2022-03-06 14:17] LABS: HCV Log PCR <1.18 NOT DETECTED Log IU/mL (NOT DETECTED); HepC Viral Load <15 NOT DETECTED IU/mL (NOT DETECTED)
== END 2022-03-04 12:20 | disposition home or self-care (01) ==
LOC: HO.LAB 12:19
PROVIDERS: Internal Medicine; Visit Provider Internal Medicine Endocrinology, Diabetes & Metabolism
DX: D61.818 Other pancytopenia (principal); B19.20 Unspecified viral hepatitis C without hepatic coma
CPT/HCPCS: 36415; 85025; 87522

== ENCOUNTER → 2022-03-05 10:00 | Outpatient (BNVA) | payer MEDICAID, SELFPAY | PROVIDERS: PCP Nurse Practitioner Primary Care; Visit Provider Internal Medicine Endocrinology, Diabetes & Metabolism | DX: E05.90 Thyrotoxicosis, unspecified without thyrotoxic crisis or storm (principal); K72.10 Chronic hepatic failure without coma; R94.6 Abnormal results of thyroid function studies | CPT/HCPCS: 99212 ==

== ENCOUNTER 2022-03-13 10:02 | Outpatient (REF) | payer MEDICAID, SELFPAY ==
--- NOTE | ~2022-03-13 | US_ITS ---
EXAMINATION: US ABDOMEN COMPLETE CLINICAL INFORMATION: Unspecified viral hepatitis C without hepatic coma. COMPARISON: CTA chest 11/28/2021. TECHNIQUE: Real-time imaging of the abdominal viscera. FINDINGS: PANCREAS: Normal. ABDOMINAL AORTA: The proximal, mid, and distal segments are normal in caliber. INFERIOR VENA CAVA: Visualized portions are normal. LIVER: The liver is normal in size. The liver contour is normal. Diffuse increased echogenicity of the liver parenchyma. No focal hepatic lesion. There is no intrahepatic biliary duct dilatation seen. GALLBLADDER: There is a 6 mm gallbladder stone versus gallbladder polyp. The gallbladder is physiologically distended without evidence of pericholecystic fluid. No wall thickening. COMMON BILE DUCT: Normal in caliber measuring 0.6 cm in diameter. RIGHT KIDNEY: Mid pole 2.3 cm cyst containing a thin septation, possible internal vascularity. No hydronephrosis or renal calculi. The kidney measures 10.8 cm in maximum dimension. LEFT KIDNEY: Mid pole 1.0 cm benign-appearing cyst. Followup imaging is not routinely recommended for benign appearing cysts. No hydronephrosis or focal parenchymal lesions. The kidney measures 11.3 cm in maximum dimension. SPLEEN: Normal. The spleen measures 13.3 cm in maximum dimension. FREE FLUID: None. US/US abdomen complete IMPRESSION: * 6 mm gallbladder stone versus gallbladder polyp.5. Recommend surgical consult and if patient has no risk factors for gallbladder malignancy* or symptoms attributable to the gallbladder, follow-up recommendations are repeat ultrasound at one, 3, and 5 years from the date of original exam documenting the findings. If patient has symptoms attributable to the gallbladder, cholecystectomy is suggested if there are no alternative causes for the symptoms and the patient is fit for and accepts surgery. If cholecystectomy is not deemed appropriate follow-up as below. If patient has no symptoms and risk factors are present or patient is symptomatic and cholecystectomy is deemed not appropriate, follow-up. * Right renal 2.3 cm cyst containing a thin septation, possible internal vascularity. Recommend further evaluation with CT or MR renal protocol. * Diffuse increased echogenicity of the liver parenchyma likely reflects hepatic steatosis. No focal hepatic lesion. * Spleen is at the upper limits of normal in size measuring 13.3 cm. * A gallbladder polyp measuring 6 mm.
== END 2022-03-13 10:03 | disposition home or self-care (01) ==
LOC: HO.US 10:02
PROVIDERS: Visit Provider Internal Medicine
DX: B19.20 Unspecified viral hepatitis C without hepatic coma (principal)
CPT/HCPCS: 76700

== ENCOUNTER 2022-03-19 09:06 | Outpatient (REF) | payer MEDICAID, SELFPAY ==
[2022-03-19 10:14] LABS: Basophils Percent Auto 0.4 % (0-2); Eosinophils Absolute Auto 0.1 X10*3/uL (0.0-0.4); Eosinophils Percent Auto 3.4 % (0-4); Hematocrit 35.4 % (42.0-52.0); Hemoglobin 12.3 g/dl (14.0-18.0); Imm Gran Abs Auto 0.01 X10*3/uL (0.00-0.03); Imm Gran Pct Auto 0.4 % (0.0-0.4); Lymphocytes Percent Auto 37.1 % (20-40); MANUAL DIFF FLAG SCAN; Mean Corpuscular HGB Conc 34.7 g/dl (31.0-36.0); Mean Corpuscular Hemoglobin 29.9 pg (27.0-33.0); Mean Corpuscular Volume 85.9 fL (80.0-98.0); Mean Platelet Volume 10.7 fL (9.4-12.4); Monocytes Absolute Auto 0.4 X10*3/uL (0.1-1.2); Monocytes Percent Auto 16.3 % (2-11); Neutrophils Absolute Auto 1.1 x10*3/uL (2.0-8.3); Neutrophils Percent Auto 42.4 % (45-73); PLT CLUMP 1; Red Blood Count 4.12 X10*6/uL (4.60-5.80); Red Cell Distribution Width 14.5 % (11.0-16.0); SCAN SMEAR FLAG 1
[2022-03-19 10:40] LABS: Alanine Aminotransferase 47 U/L (0-40); Alkaline Phosphatase 208 U/L (39-117); Anion Gap 12 (12-20); Aspartate Amino Transferase 91 U/L (5-37); Bilirubin Total 2.1 mg/dL (0.0-1.0); Blood Urea Nitrogen 12 mg/dL (9-16); Calcium 8.5 mg/dL (8.4-10.2); Carbon Dioxide 25 mmol/L (22-29); Chloride 109 mmol/L (96-108); Estimated Glomerular Filt Rate > 60; Glucose Random 86 mg/dL (60-115); Potassium 4.1 mmol/L (3.3-5.1); Sodium 142 mmol/L (135-145); Total Protein 6.8 g/dL (6.5-8.0)
[2022-03-19 10:56] LABS: White Blood Count 2.6 X10*3/uL (4.8-10.8)
[2022-03-19 10:57] LABS: Platelet Count 87 X10*3/uL (160-400)
[2022-03-19 11:07] LABS: SLIDE REVIEW VERIFIED
== END 2022-03-19 09:07 | disposition home or self-care (01) ==
LOC: HO.LAB 09:06
PROVIDERS: Absent Provider Internal Medicine Medical Oncology; Visit Provider Internal Medicine Endocrinology, Diabetes & Metabolism
DX: D61.818 Other pancytopenia (principal)
CPT/HCPCS: 36415; 80053; 85025

== ENCOUNTER 2022-03-26 11:46 | Outpatient (REF) | payer MEDICAID, SELFPAY ==
[2022-03-26 12:47] LABS: Basophils Percent Auto 0.7 % (0-2); Eosinophils Absolute Auto 0.1 X10*3/uL (0.0-0.4); Eosinophils Percent Auto 3.3 % (0-4); Hemoglobin 13.7 g/dl (14.0-18.0); Lymphocytes Absolute Auto 1.1 X10*3/uL (1.2-4.9); Lymphocytes Percent Auto 36.9 % (20-40); MANUAL DIFF FLAG SCAN; Mean Corpuscular HGB Conc 34.3 g/dl (31.0-36.0); Mean Corpuscular Hemoglobin 29.9 pg (27.0-33.0); Mean Corpuscular Volume 87.3 fL (80.0-98.0); Monocytes Absolute Auto 0.5 X10*3/uL (0.1-1.2); Monocytes Percent Auto 17.6 % (2-11); Neutrophils Absolute Auto 1.3 x10*3/uL (2.0-8.3); Neutrophils Percent Auto 41.5 % (45-73); PLT CLUMP 1; Red Blood Count 4.58 X10*6/uL (4.60-5.80); Red Cell Distribution Width 14.9 % (11.0-16.0); SCAN SMEAR FLAG 1
[2022-03-26 13:17] LABS: Platelet Count 99 X10*3/uL (160-400)
[2022-03-26 13:18] LABS: SLIDE REVIEW VERIFIED
[2022-03-26 14:12] LABS: Alanine Aminotransferase 51 U/L (0-40); Alkaline Phosphatase 216 U/L (39-117); Aspartate Amino Transferase 102 U/L (5-37); Bilirubin Direct 1.4 mg/dL (0.0-0.5); Bilirubin Total 2.2 mg/dL (0.0-1.0); Free T4 (Free Thyroxine) 1.61 ng/dL (0.71-1.85); Thyroid Stimulating Hormone < 0.01 uIU/mL (0.32-4.0); Total Protein 7.1 g/dL (6.5-8.0)
[2022-03-27 08:52] LABS: Triiodothyronine T3 Free 7.1 pg/mL (2.3-4.2)
== END 2022-03-26 11:47 | disposition home or self-care (01) ==
LOC: HO.LAB 11:46
PROVIDERS: PCP Nurse Practitioner Primary Care; Visit Provider Internal Medicine Endocrinology, Diabetes & Metabolism
DX: E05.90 Thyrotoxicosis, unspecified without thyrotoxic crisis or storm (principal); R94.6 Abnormal results of thyroid function studies
CPT/HCPCS: 36415; 80076; 84439; 84443; 84481; 85025; 99212

== ENCOUNTER → 2022-04-05 13:50 | Outpatient (BNVA) | payer MEDICAID, SELFPAY | PROVIDERS: PCP Nurse Practitioner Primary Care; Visit Provider Internal Medicine | DX: K74.69 Other cirrhosis of liver (principal); B19.20 Unspecified viral hepatitis C without hepatic coma | CPT/HCPCS: 99212 ==

== ENCOUNTER 2022-04-26 10:29 | Outpatient (REF) | payer MEDICAID, SELFPAY ==
--- NOTE | 2022-04-26 13:18 | HM_ITS ---
* Total monitoring time 2 days. * Underlying rhythm is sinus. Average ventricular rate 89/Min. Range 59 to 150/Min. * About 19% the time, rate > 100/Min. * Rare PACs/PVCs. * No sustained arrhythmias. * No patient diary. MTDD
--- NOTE | 2022-04-26 17:39 | PFT_ITS ---
Forced vital capacity 77%, FEV1 66%, FEV1/FVC ratio is 67. [id number] 41% and MVV 70%. Post bronchodilator therapy there is significant improvement in FEV1 and CVI29-47. Total lung capacity 93%. Residual volume 122%. Diffusion capacity 58%. CONCLUSION: [id number] degree of obstructive airway disorder. Good response to bronchodilator therapy resulting in almost complete reversibility. These findings are suggestive of bronchial asthma. Clinical correlation is recommended. Jolie Ocasio MD MSB/MODL / [id number]
== END 2022-04-26 10:30 | disposition home or self-care (01) ==
LOC: HO.RESP 10:29
PROVIDERS: PCP Nurse Practitioner Primary Care; Visit Provider Internal Medicine
DX: R06.02 Shortness of breath (principal); I42.9 Cardiomyopathy, unspecified; R00.2 Palpitations
CPT/HCPCS: 93226; 94060; 94727; 94729

== ENCOUNTER → 2022-05-14 10:09 | Outpatient (BNVA) | payer MEDICAID, SELFPAY | PROVIDERS: PCP Nurse Practitioner Primary Care; Referring Provider Nurse Practitioner Primary Care; Visit Provider Internal Medicine | DX: I42.9 Cardiomyopathy, unspecified (principal); E05.90 Thyrotoxicosis, unspecified without thyrotoxic crisis or storm | CPT/HCPCS: 99212 ==

== ENCOUNTER → 2022-06-04 12:52 | Outpatient (BNVA) | payer MEDICAID, SELFPAY | PROVIDERS: PCP Nurse Practitioner Primary Care; Visit Provider Internal Medicine | DX: J44.9 Chronic obstructive pulmonary disease, unspecified (principal); F17.210 Nicotine dependence, cigarettes, uncomplicated | CPT/HCPCS: 99202 ==

== ENCOUNTER → 2022-07-10 14:12 | Outpatient (BNVA) | payer MEDICAID, SELFPAY | PROVIDERS: PCP Nurse Practitioner Primary Care; Visit Provider Internal Medicine | DX: J44.9 Chronic obstructive pulmonary disease, unspecified (principal); J32.9 Chronic sinusitis, unspecified; F17.200 Nicotine dependence, unspecified, uncomplicated | CPT/HCPCS: 99212 ==

== ENCOUNTER → 2022-08-21 13:51 | Outpatient (BNVA) | payer MEDICAID, SELFPAY | PROVIDERS: PCP Nurse Practitioner Primary Care; Visit Provider Internal Medicine | DX: J44.9 Chronic obstructive pulmonary disease, unspecified (principal); F17.210 Nicotine dependence, cigarettes, uncomplicated | CPT/HCPCS: 99212 ==

== ENCOUNTER → 2022-12-10 12:57 | Outpatient (REF) | payer MEDICAID, SELFPAY ==
--- NOTE | 2022-12-10 13:01 | CA_ITS ---
Transthoracic Echocardiogram Patient (Last, First, Middle): Daniel Serna A Gender: Male Date of : 1965 Age: 57 Procedure Date: 12/10/2022 Procedure Type: Transthoracic Echocardiogram Location: OP Height: 167.64 cm Weight: 79.38 kg BSA: 1.89 m2 Heart Rate: bpm BP: 122 / 68 mmHg Watch Case Polisher: Referring MD: Jason Padron MD Press Tender Smoke Signal: Jorge A Jones MD Symptoms: I42.9 - Cardiomyopathy, unspecified Study Quality: Adequate w Contrast ECG Rhythm: Sinus Conclusions: - 1. Low normal LV ejection fraction 50-55% with grade 1 diastolic dysfunction 2. Normal cardiac valvular Doppler 3. Normal RV systolic pressure 4. No gross pericardial effusion Findings Left Ventricle Normal left ventricular cavity size. There is normal left ventricular wall thickness. The left ventricular systolic function is low normal. The visually estimated ejection fraction is between 50-55%. Spectral Doppler is indicative of an impaired relaxation filling pattern. E/E prime ratio is <8, consistent with normal filling pressures. Evidence suggests grade I (mild) diastolic dysfunction. Right Ventricle Normal right ventricular cavity size and systolic function. Atria Both atria are normal in size. There is no evidence of interatrial shunt. Aortic Valve Normal aortic valve structure and function. There is no aortic valve stenosis. There is no aortic valve regurgitation. Mitral Valve Normal mitral valve structure and function. There is trace mitral valve regurgitation. There is no mitral valve stenosis. Pulmonic Valve The pulmonic valve is likely normal. Tricuspid Valve Normal tricuspid valve structure. There is trace tricuspid valve regurgitation. The right ventricular systolic pressure is normal. The right ventricular systolic pressure is 27 mmHg. Normal right atrial pressure. There is no evidence of pulmonary hypertension. Great Vessels All visible segments of the aorta are normal in size. The pulmonary artery was not well visualized. Venous The inferior vena cava is normal in size and collapses greater than 50% with inspiration. Pericardium/Pleural There is no evidence of pericardial effusion. Measurements 2D Linear Measurements IVSd: 1.03 0.6-0.9/0.6-1.0 cm LVIDd: 5.07 3.9-5.3/4.2-5.9 cm LVIDd Index: 2.68 2.4-3.2/2.2-3.1 cm/m2 LVIDs: 3.65 2.0-3.6 cm LVPWd: 1.06 0.7-1.1 cm Ao Root: 3.20 2.1-3.5 cm LA Diam: 3.50 2.7-3.8/3.0-4.0 cm LAIDs Index: 1.85 1.5-2.3 cm/m2 LV Mass: 246.21 67-162/88-224 g LV Mass Index: 130.27 43-95/49-115 g/m2 LVOT Diam: 2.00 3.0+(-)1.3 cm 2D Systolic Function EF 4C: 50.60 >55% EF 2C: 53.40 >55% EF BiP: 51.50 >55% Mitral Valve MV VTI: 0.40 MV Pk Adam: 0.86 MV Mn Adam: 0.46 MV Pk Grad: 3.00 MV Mn Grad: 1.00 MV Pk E: 0.64 MV PK A: 0.88 MV Decel Time: 211.00 E/A: 0.70 E'Lateral: 12.00 E'Medial: 9.68 E/E' Med: 6.60 E/E' Lat: 5.30 PHT: 62.00 MVA PHT: 3.55 MVA Continuity: 1.83 Decel [place]: 3.02 Aortic Valve AoV Pk Adam: 2.14 AoV Mn Adam: 1.22 AoV VTI: 0.51 AoV Pk Grad: 18.00 Aov Mn Grad: 8.00 ROSANGELA Cont.VTI: 1.42 LVOT LVOT Pk Adam: 0.94 LVOT Mn Adam: 0.64 LVOT VTI: 0.23 LVOT Pk Grad: 4.00 LVOT Mn Grad: 2.00 LVOT Diam: 2.00 LVOT Area: 3.14 Diastolic Function MV Pk E: 0.64 MV Pk A: 0.88 E/A: 0.70 E'Medial: 9.68 E/E' Med: 6.60 E' Laterial: 12.00 E/E' Lat: 5.30 Right Ventricle TAPSE (mm): 26.00 Tricuspid Valve TR Pk Adam: 2.47 TR Pk Grad: 24.00 RA Press: 3.00 RVSP: 27.00 Great Vessels Aorta Ao Root-2D: 3.20 2.0-3.7 cm Ao Asc: 2.90 2.1-3.4 cm Pulmonary Valve PV Pk Adam: 1.20 Peak PV Grad: 6.00 Updated in Other Vendor System with Status of Final Jorge A Jones MD electronically signed on 12/11/2022 12:45:06 PM with status of Final
[2022-12-10 16:54] LABS: Albumin Level 3.3 g/dL (3.5-5.0); Calcium 9.2 mg/dL (8.4-10.2)
== END ==
LOC: HO.CARD 12:57
PROVIDERS: PCP Nurse Practitioner Primary Care; Visit Provider Internal Medicine
DX: I42.9 Cardiomyopathy, unspecified (principal)
CPT/HCPCS: 36415; 82040; 82310; 93306; Q9957

== ENCOUNTER → 2022-12-10 13:01 | Outpatient (BNV) | payer MEDICAID, SELFPAY | PROVIDERS: PCP Nurse Practitioner Primary Care; Visit Provider Internal Medicine Cardiovascular Disease | DX: I42.9 Cardiomyopathy, unspecified (principal) | CPT/HCPCS: 93306 ==

== ENCOUNTER 2022-12-10 14:49 | Emergency (ER) | payer MEDICAID, SELFPAY | END 2022-12-10 16:26 | disposition left against medical advice (07) | PROVIDERS: Emergency Provider Emergency Medicine; PCP Nurse Practitioner Primary Care | DX: Z53.21 Procedure and treatment not carried out due to patient leaving prior to being seen by health care provider (principal) ==

== ENCOUNTER 2023-01-07 13:28 | Outpatient (AMB) | payer MEDICAID, SELFPAY ==
--- NOTE | 2023-01-07 13:48 | A.OFFVIS_ITS ---
Intake Vital Signs 01/07/23 13:49 Height 5 ft 6 in Weight 205 lb 0.478 oz BMI 33.1 BP 134/76 Blood Pressure Location Rt brachial Position Sitting Pulse 67 Pulse Source Pulse Oximeter Pulse Oximetry (%) 98 Oxygen Delivery Method Room Air Intake Visit Reasons: asthma Intake Note: Unsure of medication changes after he had surgery to remove his thyroid. Allergies No Known Allergies Allergy (Verified 01/07/23 14:07) Medication List - Last Reconciled 01/07/23 by Jolie Ocasio MD albuterol sulfate 90 mcg/actuation (ProAir HFA) 2 puffs PO Q4-6H PRN albuterol sulfate mg inhalation Q4H PRN blood sugar diagnostic (FreeStyle Lite Strips) As directed blood-glucose meter (FreeStyle [place] Lite kit) As directed budesonide-formoterol 80-4.5 mcg/actuation (Symbicort) 2 puffs inhalation BID buspirone 5 mg PO BID diclofenac sodium 1% 2 grams topical QID glecaprevir-pibrentasvir 100-40 mg (Mavyret) 3 tabs PO DAILY 8 weeks hydroxyzine HCl 1 tab PO TID PRN lancets (TRUEplus Lancets) As directed losartan-hydrochlorothiazide 50-12.5 mg 1 tab PO DAILY methimazole 20 mg (2 x 10 mg) PO BID metoprolol succinate ER 50 mg PO DAILY omeprazole 1 cap PO DAILY ramelteon (Rozerem) 1 tab PO BEDTIME simvastatin 20 mg PO QPM Do you need a note to return to daycare/school/sports/work: No HPI asthma HPI Details 57 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 IN THE INTERIM. HE HAS HAD TOTAL THYROIDECTOMY FOR HYPERTHYROIDISM IN NOVEMBER OF THIS YEAR. HIS BREATHING HAS BEEN VERY STABLE WITHOUT ANY BOUTS OF COUGH OR WHEEZING. HE WENT BACK TO SMOKING ALMOST 1 PACK OF CIGARETTES A DAY. HE HAS GAINED SIGNIFICANT WEIGHT IN THE LAST 2 MONTHS ESPECIALLY SINCE THE THYROIDECTOMY. I WILL BE CONCERNED ABOUT HIS THYROID FUNCTION AND HE MAY BE GOING INTO HYPOTHYROIDISM. 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) Diabetes Hepatitis C Hepatitis C HTN (hypertension) Hyperthyroidism determined by thyroid function test Sinusitis Smoker Weight gain Surgical History H/O abdominal surgery History of knee surgery Family History Mother Diabetes Mother HTN (hypertension) Sister Diabetes HTN (hypertension) Other No family history of cancer Social History Household Members: Family Household Members Other:: sister Housing: Apartment Are you a primary animal daycare provider to a significant other at home: Yes (mom) Do you presently have visiting nurse or other home services: No Alcohol intake: current Alcohol intake frequency: holidays/special occasions only Patient Tobacco Use Status: Current everyday Tobacco user Tobacco use type: Cigarette Cigarette Packs Per Day: 0.5 Cigarettes Per Day: 5 Years Smoked: 40 +/- Substance Use Type: Marijuana service: No Current occupational status: unemployed Review of Systems Const All systems reviewed & are unremarkable except as noted in HPI and below Eyes Reports no additional complaints ENT Reports no additional complaints Card Denies chest pain at rest, Denies irregular heart rhythm, Denies leg edema, Denies lightheadedness and Reports dyspnea on exertion (ONLY MILD) Resp Reports cough, Reports dyspnea on exertion (ONLY MILD) and Reports wheezing GI Reports heartburn (GERD SYMPTOMS UNDER CONTROL) Reports no additional complaints Musc Reports no additional complaints Skin/Breast Reports system reviewed and no additional complaints, except as documented Neuro Reports no additional complaints Psych Reports no additional complaints Endo Reports other (BEING TREATED FOR DIABETES MELLITUS) Aller/Immun Reports no additional complaints and Reports wheezing Physical Exam Vital Signs: Last Vital Signs Pulse 67 01/07/23 13:49 BP 134/76 01/07/23 13:49 Pulse Ox 98 01/07/23 13:49 Oxygen Delivery Method Room Air 01/07/23 13:49 BMI result Body Mass Index 33.1 Const General: comfortable, no acute distress, alert and awake Orientation/consciousness: patient oriented x3 HEENT Head: Yes normal to inspection General nose exam: No nasal polyps present and No nasal discharge present Face and sinus: Yes sinuses nontender Mouth: oropharynx normal Throat: Yes posterior oropharynx normal (MODERATE AMOUNT OF MUCOPURULENT SECRETIONS ARE NOTED) Eyes General: appearance normal, both eyes and all related structures Neck Neck: Yes normal visual inspection, Yes no lymphadenopathy, Yes trachea midline and Yes no JVD Thyroid: Thyroid normal Chest Chest palpation & inspection: normal inspection of the chest, normal palpation of entire chest wall and no tenderness Resp Other: PERCUSSION NOTE RESONANT, BREATH SOUNDS ARE DISTANT WITH PROLONGED EXPIRATORY PHASE NO WHEEZES OR RHONCHI ARE HEARD. Cardio Palpation: normal PMI Rate: regular rate Rhythm: regular rhythm Heart sounds: no gallops and no murmurs Peripheral pulses: Peripheral pulses 2+ throughout GI Palpation (GI): Soft to palpation, nontender, No hepatosplenomegaly present and no masses Auscultation: normal bowel sounds Back/Spine/Pelvis Thoracic/Lumbar Spine: thoracic and lumbar spine normal to inspection Skin General skin exam: no rashes or lesions noted Neuro General: patient oriented x3 and no focal motor deficits Cranial nerves: Yes CN's II-XII intact bilaterally Extrem General: Yes normal to inspection, Yes no clubbing, cyanosis or edema and Yes no calf tenderness Psych Appearance: grossly normal and well kempt Speech and movement: Normal speech and movement present Assessment & Plan Assessment & Plan (1) Asthma-COPD overlap syndrome: Comment: PULMONARY FUNCTION TEST CONSISTENT WITH MODERATELY SEVERE OBSTRUCTIVE AIRWAY DISORDER AND GOOD RESPONSE TO BRONCHODILATOR THERAPY. RESULTS ARE C/W ASTHMA/COPD OVERLAP SYNDROME. Well controlled at this time. TX: SYMBICORT 80-4.52 PUFFS B.I.D., AND ALBUTEROL ( VENTOLIN ) 2 PUFFS Q 4-6 HOURS P.R.N.. ALTERNATIVELY HE CAN USE ALBUTEROL SOLUTION IN THE UPDRAFT Q 4-6 HOURS P.R.N.. Code(s): J44.9 - Chronic obstructive pulmonary disease, unspecified (2) Smoker: Comment: HAS LONG-TIME HISTORY OF SMOKING, HE HAD ACTUALLY CUT DOWN TO 5 CIGARETTES A DAY. NOW SINCE HIS LAST VISIT AND ESPECIALLY AFTER THYROID SURGERY HE HAS STARTED SMOKING CLOSE TO 1 PACK A DAY. I DID HAVE A GOOD TALK WITH HIM AND TRY ADVISED HIM TO QUIT COMPLETELY ARE CUT DOWN TO LESS THAN 5 CIGARETTES A DAY. Code(s): F17.200 - Nicotine dependence, unspecified, uncomplicated (3) Weight gain: Comment: HE HAS SIGNIFICANT WEIGHT GAIN SINCE THE LAST VISIT. I SUSPECT THAT HE HAS DEVELOPED HYPOTHYROID STATE AFTER THYROIDECTOMY. I ADVISED HIM TO MAKE SURE TO MAKE APPOINTMENT WITH HIS PRIMARY CARE PHYSICIAN AND HAVE COMPLETE BLOOD TEST INCLUDING THE THYROID FUNCTION DONE. Code(s): R63.5 - Abnormal weight gain Coding Level of Care Code Est Pt Level 3 (36218) Diagnoses Asthma-COPD overlap syndrome J44.9 Smoker F17.200 Weight gain R63.5
[2023-01-07 13:49] VITALS: BP 134/76; PULSE 67; O2SAT 98; BMI 33.1
== END 2023-01-07 14:18 | disposition home or self-care (01) ==
PROVIDERS: PCP Nurse Practitioner Primary Care; Visit Provider Internal Medicine
DX: J44.9 Chronic obstructive pulmonary disease, unspecified (principal); F17.200 Nicotine dependence, unspecified, uncomplicated; R63.5 Abnormal weight gain
CPT/HCPCS: 99213

== ENCOUNTER → 2023-01-07 13:28 | Outpatient (BNVA) | payer MEDICAID, SELFPAY | PROVIDERS: PCP Nurse Practitioner Primary Care; Visit Provider Internal Medicine | DX: J44.9 Chronic obstructive pulmonary disease, unspecified (principal); R63.5 Abnormal weight gain; F17.210 Nicotine dependence, cigarettes, uncomplicated | CPT/HCPCS: 99212 ==

== ENCOUNTER 2023-04-30 13:32 | Outpatient (AMB) | payer MEDICAID, SELFPAY ==
[2023-04-30 13:37] VITALS: BP 140/90; PULSE 50; O2SAT 94; BMI 36.2
--- NOTE | 2023-04-30 13:37 | A.OFFVIS_ITS ---
Intake Vital Signs 04/30/23 13:37 Height 5 ft 6 in Weight 224 lb BMI 36.2 BP 140/90 H Blood Pressure Location Lt brachial Position Sitting Pulse 50 Pulse Source Pulse Oximeter Pulse Oximetry (%) 94 Oxygen Delivery Method Room Air Intake Visit Reasons: asthma Intake Note: pt is here for follow up and is stating breathing is well, but having a lot of back pain today, will e going to ER after this visit for this. [employer] Resource [employer] Teacher Required: Yes [employer] Resource [employer] Teacher Name: kristel Allergies No Known Allergies Allergy (Verified 04/30/23 13:44) Medication List - Last Reconciled 04/30/23 by Jolie Ocasio MD albuterol sulfate 90 mcg/actuation (ProAir HFA) 2 puffs PO Q4-6H PRN albuterol sulfate mg inhalation Q4H PRN blood sugar diagnostic (FreeStyle Lite Strips) As directed blood-glucose meter (FreeStyle [place] Lite kit) As directed budesonide-formoterol 80-4.5 mcg/actuation (Symbicort) 2 puffs inhalation BID buspirone 5 mg PO BID diclofenac sodium 1% 2 grams topical QID glecaprevir-pibrentasvir 100-40 mg (Mavyret) 3 tabs PO DAILY 8 weeks hydroxyzine HCl 1 tab PO TID PRN lancets (TRUEplus Lancets) As directed losartan-hydrochlorothiazide 50-12.5 mg 1 tab PO DAILY methimazole 20 mg (2 x 10 mg) PO BID metoprolol succinate ER 50 mg PO DAILY omeprazole 1 cap PO DAILY ramelteon (Rozerem) 1 tab PO BEDTIME simvastatin 20 mg PO QPM Do you need a note to return to daycare/school/sports/work: No HPI asthma HPI Details This 57 years old gentleman comes after 6 months for follow-up, for his mild bronchial asthma. Breathing ferrer he has been doing very well and is using Symbicort as well as ProAir only off and on when he needs. He denies any shortness of breath cough or wheezing. His main problem is that since he had subtotal thyroidectomy, earlier this year, he has not been followed up by the senior linux unix engineer Dr. Sanchez or his primary care physician. He has put on lot of weight and I was concerned about development of possible hypothyroidism. Today he is complaining of lot of back pain, and is planning to go to the emergency room for check. Some her other he has not been able to make appointment with the primary care physician, . 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) Hepatitis C HTN (hypertension) Diabetes Hepatitis C Surgical History History of knee surgery H/O abdominal surgery Family History Mother Diabetes Mother HTN (hypertension) Sister Diabetes HTN (hypertension) Other No family history of cancer Social History Household Members: Family Household Members Other:: sister Housing: Apartment Are you a primary healthcare financial analyst to a significant other at home: Yes (mom) Do you presently have visiting nurse or other home services: No Alcohol intake: current Alcohol intake frequency: holidays/special occasions only Patient Tobacco Use Status: Current everyday Tobacco user Tobacco use type: Cigarette Cigarette Packs Per Day: 0.5 Cigarettes Per Day: 5 Years Smoked: 40 +/- Substance Use Type: Marijuana service: No Current occupational status: unemployed Review of Systems Const All systems reviewed & are unremarkable except as noted in HPI and below Eyes Reports no additional complaints ENT Reports no additional complaints Card Denies chest pain at rest, Denies irregular heart rhythm, Denies leg edema, Denies lightheadedness and Reports dyspnea on exertion (ONLY MILD) Resp Reports cough, Reports dyspnea on exertion (ONLY MILD) and Reports wheezing GI Reports heartburn (GERD SYMPTOMS UNDER CONTROL) Reports no additional complaints Musc Reports no additional complaints Skin/Breast Reports system reviewed and no additional complaints, except as documented Neuro Reports no additional complaints Psych Reports no additional complaints Endo Reports other (BEING TREATED FOR DIABETES MELLITUS) Aller/Immun Reports no additional complaints and Reports wheezing Physical Exam Vital Signs: Last Vital Signs Pulse 50 04/30/23 13:37 BP 140/90 H 04/30/23 13:37 Pulse Ox 94 04/30/23 13:37 Oxygen Delivery Method Room Air 04/30/23 13:37 BMI result Body Mass Index 36.2 Const General: comfortable, no acute distress, alert and awake Orientation/consciousness: patient oriented x3 HEENT Head: Yes normal to inspection General nose exam: No nasal polyps present and No nasal discharge present Face and sinus: Yes sinuses nontender Mouth: oropharynx normal Throat: Yes posterior oropharynx normal (MODERATE AMOUNT OF MUCOPURULENT SECRETIONS ARE NOTED) Eyes General: appearance normal, both eyes and all related structures Neck Neck: Yes normal visual inspection, Yes no lymphadenopathy, Yes trachea midline and Yes no JVD Thyroid: Thyroid normal Chest Chest palpation & inspection: normal inspection of the chest, normal palpation of entire chest wall and no tenderness Resp Other: PERCUSSION NOTE RESONANT, BREATH SOUNDS ARE DISTANT WITH PROLONGED EXPIRATORY PHASE NO WHEEZES OR RHONCHI ARE HEARD. Cardio Palpation: normal PMI Rate: regular rate Rhythm: regular rhythm Heart sounds: no gallops and no murmurs Peripheral pulses: Peripheral pulses 2+ throughout GI Palpation (GI): Soft to palpation, nontender, No hepatosplenomegaly present and no masses Auscultation: normal bowel sounds Back/Spine/Pelvis Thoracic/Lumbar Spine: thoracic and lumbar spine normal to inspection Skin General skin exam: no rashes or lesions noted Neuro General: patient oriented x3 and no focal motor deficits Cranial nerves: Yes CN's II-XII intact bilaterally Extrem General: Yes normal to inspection, Yes no clubbing, cyanosis or edema and Yes no calf tenderness Psych Appearance: grossly normal and well kempt Speech and movement: Normal speech and movement present Assessment & Plan Assessment & Plan (1) Asthma-COPD overlap syndrome: Comment: PULMONARY FUNCTION TEST CONSISTENT WITH MODERATELY SEVERE OBSTRUCTIVE AIRWAY DISORDER AND GOOD RESPONSE TO BRONCHODILATOR THERAPY. RESULTS ARE C/W ASTHMA/COPD OVERLAP SYNDROME. Well controlled at this time. TX: SYMBICORT 80-4.52 PUFFS B.I.D., May USE PRN AND ALBUTEROL ( VENTOLIN ) 2 PUFFS Q 4-6 HOURS P.R.N.. ALTERNATIVELY HE CAN USE ALBUTEROL SOLUTION IN THE UPDRAFT Q 4-6 HOURS P.R.N.. Code(s): J44.9 - Chronic obstructive pulmonary disease, unspecified Plan: ABOVE (2) Smoker: Comment: HAS LONG-TIME HISTORY OF SMOKING, HE HAS ACTUALLY CUT DOWN TO 5 CIGARETTES A DAY. Code(s): F17.200 - Nicotine dependence, unspecified, uncomplicated Plan: ADVISED THAT HE NEEDS TO QUIT SMOKING COMPLETELY (3) Weight gain: Comment: HE HAS SIGNIFICANT WEIGHT GAIN SINCE THE LAST VISIT. I SUSPECT THAT HE HAS DEVELOPED HYPOTHYROID STATE AFTER THYROIDECTOMY. I ADVISED HIM TO MAKE APPOINTMENT WITH HIS PRIMARY CARE PHYSICIAN AND HAVE COMPLETE BLOOD TEST INCLUDING THE THYROID FUNCTION DONE. Code(s): R63.5 - Abnormal weight gain Plan: ABOVE Coding Level of Care Code Est Pt Level 3 (89490) Diagnoses Asthma-COPD overlap syndrome J44.9 Smoker F17.200 Weight gain R63.5
== END 2023-04-30 13:54 | disposition home or self-care (01) ==
PROVIDERS: PCP Nurse Practitioner Primary Care; Visit Provider Internal Medicine
DX: J44.9 Chronic obstructive pulmonary disease, unspecified (principal); F17.200 Nicotine dependence, unspecified, uncomplicated; R63.5 Abnormal weight gain
CPT/HCPCS: 99213

== ENCOUNTER → 2023-04-30 13:32 | Outpatient (BNVA) | payer MEDICAID, SELFPAY | PROVIDERS: PCP Nurse Practitioner Primary Care; Visit Provider Internal Medicine ==

== ENCOUNTER 2023-04-30 14:02 | Emergency (ER) | payer MEDICAID, SELFPAY ==
[2023-04-30 15:01] VITALS: BP 178/98; PULSE 55; RESP 18; TEMP 36.7; O2SAT 97; BMI 35.6
--- NOTE | 2023-04-30 15:38 | ED.GENADULT ---
HPI - General Adult General Chief complaint: Back Pain/Injury Stated complaint: Back/waist pain Time Seen by Provider: 04/30/23 15:36 Source: patient and medical charge entry specialist Mode of arrival: ambulatory Limitations: language barrier History of Present Illness HPI narrative: Patient is a 57 year old assigned male at with a history of DM, asthma, and HTN presenting to the emergency department today with low back pain. Patient states that he has been having low back pain that radiates down both of his legs. Patient denies any dizziness, lightheadedness, abdominal pain, nausea, vomiting, fever, chills, blurry vision, double vision, loss of vision, chest pain, difficulty breathing, shortness of breath, night sweats, pain with urination, increased urinary frequency, increased urinary urgency, blood in his urine or stool, syncope or a near syncopal episode, recent trauma or falls, bowel incontinence, bladder incontinence, bowel retention, bladder retention, or any other complaints at this time. Onset (ago): day(s) Location: back Radiation: extremity Severity: mild Severity scale (1-10): 3 Quality: dull Pain Consistency: constant Relieving factors: none Exacerbating factors: none Associated symptoms: denies other symptoms Treatments prior to arrival: other (ibuprofen) Related Data Home Medications Medication Instructions Recorded Confirmed buspirone 5 mg tablet 5 mg PO BID anxiety 07/31/21 04/30/23 diclofenac sodium 1 % topical gel 2 g topical QID 07/31/21 04/30/23 simvastatin 20 mg tablet 20 mg PO QPM 07/31/21 04/30/23 albuterol sulfate 90 mcg/actuation 2 puff PO Q4-6H PRN Shortness Of 11/29/21 04/30/23 aerosol inhaler (ProAir HFA) Breath hydroxyzine HCl 25 mg tablet 1 tab PO TID PRN itch 11/29/21 04/30/23 losartan 50 mg-hydrochlorothiazide 1 tab PO DAILY 11/29/21 04/30/23 12.5 mg tablet omeprazole 20 mg capsule,delayed 1 cap PO DAILY 11/29/21 04/30/23 release blood sugar diagnostic (FreeStyle #10 ea 12/13/21 04/30/23 Lite Strips) blood-glucose meter (FreeStyle #1 ea 12/13/21 04/30/23 [place] Lite kit) lancets 33 gauge (TRUEplus Lancets) #100 ea 12/13/21 04/30/23 ramelteon 8 mg tablet (Rozerem) 1 tab PO BEDTIME 02/05/22 04/30/23 albuterol sulfate 2.5 mg/3 mL mg inhalation Q4H PRN wheezing 07/10/22 04/30/23 (0.083 %) solution for nebulization budesonide-formoterol HFA 80 2 puff inhalation BID 08/21/22 04/30/23 mcg-4.5 mcg/actuation aerosol inhaler (Symbicort) Previous Rx's Medication Instructions Recorded glecaprevir 100 mg-pibrentasvir 40 3 tab PO DAILY 8 weeks #168 tabs 09/28/21 mg tablet (Mavyret) metoprolol succinate 50 mg 50 mg PO DAILY #30 tabs 09/06/22 tablet,extended release 24 hr methimazole 10 mg tablet 20 mg (2 x 10 mg) PO BID #60 tabs 12/09/22 cyclobenzaprine 5 mg tablet 5 mg PO TID PRN muscle spasm 7 04/30/23 days #21 tabs naproxen 500 mg tablet 500 mg PO BID 7 days #14 tabs 04/30/23 prednisone 20 mg tablet 20 mg PO DAILY 7 days #7 tabs 04/30/23 Allergies Allergy/AdvReac Type Severity Reaction Status Date / Time No Known Allergies Allergy Verified 04/30/23 15:01 Review of Systems Constitutional: Constitutional: Reports no additional constitutional complaints, Denies chills, Denies fever(s) and Denies night sweats Eyes: Eyes: Reports no additional eye complaints, Denies blurry vision, Denies change in vision, Denies diplopia, Denies eye discharge, Denies loss of vision and Denies eye pain ENT: Denies dizziness Cardiovascular: Cardiovascular: Reports no additional cardiovascular complaints, Denies chest pain, Denies lightheadedness, Denies Loss of Consciousness and Denies dyspnea Respiratory: Respiratory: Reports no additional respiratory complaints and Denies dyspnea Gastrointestinal: Gastrointestinal: Reports no additional gastrointestinal complaints, Denies abdominal pain, Denies melena, Denies hematochezia, Denies change in bowel habits and Denies change in stool character Genitourinary: Genitourinary: Reports no additional male genitourinary complaints, Denies hematuria, Denies oliguria, Denies difficulty urinating, Denies dysuria, Denies urinary frequency, Denies urinary hesitancy, Denies urinary incontinence and Denies urinary urgency Musculoskeletal: Musculoskeletal: Reports no additional musculoskeletal complaints, Reports back pain, Denies numbness and Denies tingling Neurologic: Denies dizziness, Denies loss of vision, Denies numbness and Denies tingling Psychiatric: Psychiatric: Reports no additional psychiatric complaints Endocrine: Endocrine: Reports no additional endocrine complaints Hematologic/Lymphatic: Hematologic/Lymphatic: Reports no additional hematologic/lymphatic complaints Allergic/Immunologic: Allergic/Immunologic: Reports no additional allergic/immunologic complaints [facility] Past Medical History Attestation statement: The following information was validated with the patient. 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) Hepatitis C Diabetes Hepatitis C Surgical History History of knee surgery H/O abdominal surgery Family History Family History Mother Diabetes Mother HTN (hypertension) Sister Diabetes HTN (hypertension) Other No family history of cancer Social History Social History Household Members: Family Household Members Other:: sister Housing: Apartment Are you a primary home care associate to a significant other at home: Yes (mom) Do you presently have visiting nurse or other home services: No Alcohol intake: current Alcohol intake frequency: holidays/special occasions only Patient Tobacco Use Status: Current everyday Tobacco user Tobacco use type: Cigarette Cigarette Packs Per Day: 0.5 Cigarettes Per Day: 5 Years Smoked: 40 +/- Substance Use Type: Marijuana Advance Directives: No Advance Directives Information Provided: No service: No Current occupational status: unemployed Physical Exam ED Vital Signs: Vital Signs - 24 hr 04/30/23 15:01 04/30/23 15:48 Temperature 98.1 F 97.7 F Pulse Rate 55 51 Respiratory Rate 18 Blood Pressure 178/98 H 152/83 H Pulse Oximetry 97 96 Oxygen Delivery Method Room Air Room Air BMI result Body Mass Index 35.6 Const General: cooperative, no acute distress, alert and awake Nutritional Appearance: well nourished Orientation/consciousness: patient oriented x3 Limitations: no limitations HENMT Head: Yes normal to inspection and Yes atraumatic Ears: hearing grossly normal bilaterally and external ears normal General nose exam: Normal external nose present, no nasal discharge noted and no epistaxis Face and sinus: Yes normal facial exam, No abrasion and No laceration Mouth: Normal oral and palatal mucosa present, no drooling and no muffled voice Eyes General: appearance normal, both eyes and all related structures Periorbital: periorbital findings normal Eyelids: Yes eyelids normal Conjunctivae: conjunctivae normal Pupils: Equal, round and reactive pupils present EOM: EOMs intact bilaterally Neck Neck: Yes normal visual inspection, Yes full ROM and Yes no lymphadenopathy Chest Chest palpation & inspection: normal inspection of the chest Resp Effort & Inspection: normal respiratory effort and able to speak in complete sentences GI Inspection: Yes normal to inspection General: Yes no CVA tenderness Back/Spine/Pelvis Back: no CVA tenderness Cervical Spine: cervical ROM normal Thoracic/Lumbar Spine: thoracic and lumbar spine normal to inspection and thoraco-lumbar ROM normal Pelvis: no pain with anterior-posterior compression Neuro General: patient oriented x3 and moves all extremities Cranial nerves: Yes Equal, round and reactive pupils present Cognition (Neuro): normal cognition Motor exam (neuro): 5/5 motor strength present throughout Sensory Exam: Normal double simultaneous stimulation for sensation Coordination: [id number] test normal Extrem General: Yes normal to inspection, Yes full ROM and Yes capillary refill normal Psych Appearance: grossly normal Mental Status: mental status grossly normal Affect: normal affect Attitude: cooperative Thought process: Normal thought process present Thought content: Normal thought content present Insight: Good insight present (Psych) Medications Administered Discontinued Medications Generic Name Dose Route Start Last Admin Trade Name Julesq PRN Reason Stop Dose Admin Cyclobenzaprine HCl 5 mg 04/30/23 15:56 04/30/23 16:23 Cyclobenzaprine Hcl 5 Mg Tablet PO 04/30/23 15:57 5 mg ONCE ONE Administration Ketorolac Tromethamine 15 mg 04/30/23 15:56 04/30/23 16:22 Ketorolac Tromethamine 15 Mg/Ml Vial IM 04/30/23 15:57 15 mg ONCE ONE Administration Prednisone 20 mg 04/30/23 15:56 04/30/23 16:22 Prednisone 20 Mg Tablet PO 04/30/23 15:57 20 mg ONCE ONE Administration Medical Decision Making Medical Decision Making [facility] Narrative: Patient is a 57 year old assigned male at with a history of DM, HTN, and asthma presenting to the emergency department today with low back pain. Patient's physical exam was unremarkable. I explained my physical exam findings to the patient. I answered all questions asked by the patient. I stressed the importance of the patient taking his medication as prescribed. I stressed the importance of the patient following up with his primary care provider. I stressed the importance of the patient returning to the emergency department immediately if his symptoms were to worsen or if he were to develop any dizziness, shortness of breath, difficulty breathing, chest pain, blurry vision, loss of vision, nausea, vomiting, abdominal pain, fever, chills, back pain, or any other complaints. Patient verbalized agreement and understanding with this treatment plan and discharge. Differential Diagnosis Differential Diagnoses: The differential diagnosis associated with the presentation includes Low back pain Sciatica Prescription Management I considered prescription management with: Pain Medication (patient prescribed pain medication) Chronic Conditions Patient?s care impacted by: Diabetes and Hypertension Discharge Plan Discharge Clinical Impression: Low back pain Patient Disposition: Home, Self-Care Instructions: Back Pain (ED) Additional Instructions: Follow up with your primary care provider. Return to the emergency department immediately if your symptoms worsen or if you develop any dizziness, shortness of breath, difficulty breathing, chest pain, blurry vision, loss of vision, nausea, vomiting, abdominal pain, fever, chills, back pain, or any other complaints. Flynn un seguimiento con mejia proveedor de atenci?n primaria. Regrese al departamento de emergencias inmediatamente si emanuel s?ntomas empeoran o si presenta mareos, dificultad para respirar, dificultad para respirar, dolor en el pecho, visi?n borrosa, p?rdida de la visi?n, n?useas, v?mitos, dolor abdominal, fiebre, escalofr?os, dolor de espalda o cualquier otras quejas. Prescriptions: New cyclobenzaprine 5 mg tablet 5 mg PO TID PRN (Reason: muscle spasm) 7 Days Qty: 21 0RF prednisone 20 mg tablet 20 mg PO DAILY 7 Days Qty: 7 0RF naproxen 500 mg tablet 500 mg PO BID 7 Days Qty: 14 0RF No Action metoprolol succinate 50 mg tablet extended release 24 hr 50 mg PO DAILY Qty: 30 5RF methimazole 10 mg tablet 20 mg PO BID Qty: 60 5RF hydroxyzine HCl 25 mg tablet 1 tab PO TID PRN (Reason: itch) omeprazole 20 mg capsule,delayed release(DR/EC) 1 cap PO DAILY albuterol sulfate [ProAir HFA] 90 mcg/actuation HFA aerosol inhaler 2 puff PO Q4-6H PRN (Reason: Shortness Of Breath) losartan-hydrochlorothiazide 50-12.5 mg tablet 1 tab PO DAILY ramelteon [Rozerem] 8 mg tablet 1 tab PO BEDTIME diclofenac sodium 1 % gel 2 g topical QID simvastatin 20 mg tablet 20 mg PO QPM buspirone 5 mg tablet 5 mg PO BID Mavyret 100-40 mg tablet 3 tab PO DAILY 56 Days Qty: 168 0RF Rx Instructions: must administer with a meal/food (DME) lancets [TRUEplus Lancets] 33 gauge misc See Rx Instructions Not Applicable BID Qty: 100 Rx Instructions: As directed (DME) blood-glucose meter [FreeStyle [place] Lite] Kit See Rx Instructions .ROUTE BID Qty: 1 Rx Instructions: As directed (DME) FreeStyle Lite Strips Strip See Rx Instructions Not Applicable BID Qty: 10 Rx Instructions: As directed albuterol sulfate 2.5 mg /3 mL (0.083 %) solution for nebulization inhalation Q4H PRN (Reason: wheezing) budesonide-formoterol [Symbicort] 80-4.5 mcg/actuation HFA aerosol inhaler 2 puff inhalation BID Referrals: [facility] [[facility]] (Call to establish and follow up with a primary care provider. If you already have a primary care provider, please follow up with them. Llame para establecer y realizar un seguimiento con un proveedor de atenci?n primaria. Si ya tiene un proveedor de atenci?n primaria, flynn un seguimiento con ?l.) [facility] [Provider [facility]] (Call to establish and follow up with a primary care provider. If you already have a primary care provider, please follow up with them. Llame para establecer y realizar un seguimiento con un proveedor de atenci?n primaria. Si ya tiene un proveedor de atenci?n primaria, flynn un seguimiento con ?l.) [facility] [Provider Group] (Call to establish and follow up with a primary care provider. If you already have a primary care provider, please follow up with them. Llame para establecer y realizar un seguimiento con un proveedor de atenci?n primaria. Si ya tiene un proveedor de atenci?n primaria, flynn un seguimiento con ?l.) Print Language: Libyan
[2023-04-30 15:48] VITALS: BP 152/83; PULSE 51; TEMP 36.5; O2SAT 96
[2023-04-30] MEDS: predniSONE 20 MG TABLET PO (16:22)
[2023-04-30] MEDS: Ketorolac Tromethamine 15 MG/ML VIAL IM (16:22)
[2023-04-30] MEDS: Cyclobenzaprine HCl 5 MG TABLET PO (16:23)
[2023-04-30 16:33] VITALS: RESP 16
== END 2023-04-30 16:36 | disposition home or self-care (01) ==
PROVIDERS: Emergency Provider Student in an Organized Health Care Education/Training Program
DX: M54.50 Low back pain, unspecified (principal); E11.9 Type 2 diabetes mellitus without complications; I10 Essential (primary) hypertension; K74.69 Other cirrhosis of liver; B19.20 Unspecified viral hepatitis C without hepatic coma; F17.210 Nicotine dependence, cigarettes, uncomplicated; F12.90 Cannabis use, unspecified, uncomplicated; Z79.899 Other long term (current) drug therapy; Z79.02 Long term (current) use of antithrombotics/antiplatelets
CPT/HCPCS: 96372; 99212; 99284; J1885

== ENCOUNTER 2023-05-27 12:29 | Outpatient (REF) | payer MEDICAID, SELFPAY ==
--- NOTE | ~2023-05-27 | XR_ITS ---
EXAMINATION: XR CHEST CLINICAL INFORMATION: Covid positive COMPARISON: None available. TECHNIQUE: 2 views of the chest were obtained. FINDINGS: No significant abnormality is noted involving the heart, lungs, mediastinum, bony thorax or soft tissues. XR/XR chest 2V IMPRESSION: Unremarkable chest examination.
== END 2023-05-27 12:30 | disposition home or self-care (01) ==
LOC: HO.HHCX 12:29
PROVIDERS: Visit Provider Internal Medicine
DX: U07.1 COVID-19 (principal)
CPT/HCPCS: 71046

== ENCOUNTER 2023-09-11 14:41 | Outpatient (REF) | payer MEDICAID, SELFPAY ==
[2023-09-11 16:23] LABS: Basophils Percent Auto 1.1 % (0-2); Eosinophils Absolute Auto 0.1 X10*3/uL (0.0-0.4); Eosinophils Percent Auto 4.2 % (0-4); Hematocrit 31.7 % (42.0-52.0); Hemoglobin 11.4 g/dl (14.0-18.0); Lymphocytes Absolute Auto 0.9 X10*3/uL (1.2-4.9); Lymphocytes Percent Auto 32.5 % (20-40); MANUAL DIFF FLAG SCAN; Mean Corpuscular Hemoglobin 34.1 pg (27.0-33.0); Mean Corpuscular Volume 94.9 fL (80.0-98.0); Mean Platelet Volume 10.8 fL (9.4-12.4); Monocytes Absolute Auto 0.2 X10*3/uL (0.1-1.2); Monocytes Percent Auto 7.4 % (2-11); Neutrophils Absolute Auto 1.6 x10*3/uL (2.0-8.3); Neutrophils Percent Auto 54.8 % (45-73); PLT CLUMP 1; Red Blood Count 3.34 X10*6/uL (4.60-5.80); Red Cell Distribution Width 13.6 % (11.0-16.0); SCAN SMEAR FLAG 1
[2023-09-11 16:37] LABS: B Type Natriuretic Peptide < 10 pg/mL (<100)
[2023-09-11 16:45] LABS: Alanine Aminotransferase 60 U/L (0-40); Albumin Level 3.8 g/dL (3.5-5.0); Alkaline Phosphatase 131 U/L (39-117); Aspartate Amino Transferase 179 U/L (5-37); Bilirubin Direct 0.1 mg/dL (0.0-0.5); Bilirubin Total 0.6 mg/dL (0.0-1.0)
[2023-09-11 17:01] LABS: TSH reflex Free T4 87.55 uIU/mL (0.32-4.0)
[2023-09-11 17:06] LABS: Platelet Count 91 X10*3/uL (160-400); White Blood Count 2.8 X10*3/uL (4.8-10.8)
[2023-09-11 17:07] LABS: SLIDE REVIEW VERIFIED
[2023-09-11 17:36] LABS: Free T4 (Free Thyroxine) < 0.42 ng/dL (0.71-1.85)
== END 2023-09-11 14:42 | disposition home or self-care (01) ==
LOC: HO.HHCL 14:41
PROVIDERS: Visit Provider Nurse Practitioner Primary Care
DX: E03.9 Hypothyroidism, unspecified (principal); K74.60 Unspecified cirrhosis of liver; R60.0 Localized edema
CPT/HCPCS: 36415; 80076; 83880; 84439; 84443; 85025

== ENCOUNTER 2023-09-25 12:06 | Outpatient (REF) | payer MEDICAID, SELFPAY ==
[2023-09-25 13:39] LABS: B Type Natriuretic Peptide 11 pg/mL (<100)
[2023-09-25 13:40] LABS: MANUAL DIFF FLAG NO
[2023-09-25 13:45] LABS: Basophils Percent Auto 1.6 % (0-2); Eosinophils Absolute Auto 0.1 X10*3/uL (0.0-0.4); Eosinophils Percent Auto 3.7 % (0-4); Hemoglobin 10.8 g/dl (14.0-18.0); Lymphocytes Absolute Auto 0.8 X10*3/uL (1.2-4.9); Lymphocytes Percent Auto 32.5 % (20-40); Mean Corpuscular Hemoglobin 34.3 pg (27.0-33.0); Mean Corpuscular Volume 95.2 fL (80.0-98.0); Mean Platelet Volume 10.6 fL (9.4-12.4); Monocytes Absolute Auto 0.2 X10*3/uL (0.1-1.2); Monocytes Percent Auto 7.8 % (2-11); Neutrophils Absolute Auto 1.3 x10*3/uL (2.0-8.3); Neutrophils Percent Auto 54.4 % (45-73); Red Blood Count 3.15 X10*6/uL (4.60-5.80); Red Cell Distribution Width 13.6 % (11.0-16.0); SCAN SMEAR FLAG 1
[2023-09-25 13:48] LABS: Platelet Count 84 X10*3/uL (160-400); White Blood Count 2.4 X10*3/uL (4.8-10.8)
[2023-09-25 13:53] LABS: Estimated Average Glucose 100 mg/dL; Hemoglobin A1c % 5.1 % (<6.0)
[2023-09-25 14:05] LABS: Anion Gap 14 (12-20); Blood Urea Nitrogen 13 mg/dL (9-16); Carbon Dioxide 24 mmol/L (22-29); Chloride 106 mmol/L (96-108); Estimated Glomerular Filt Rate 43; Glucose Random 74 mg/dL (60-115); Potassium 3.7 mmol/L (3.3-5.1); Sodium 140 mmol/L (135-145)
[2023-09-25 14:33] LABS: Alanine Aminotransferase 54 U/L (0-40); Albumin Level 3.8 g/dL (3.5-5.0); Alkaline Phosphatase 122 U/L (39-117); Anion Gap 14 (12-20); Aspartate Amino Transferase 195 U/L (5-37); Bilirubin Direct < 0.1 mg/dL (0.0-0.5); Bilirubin Total 0.7 mg/dL (0.0-1.0); Blood Urea Nitrogen 11 mg/dL (9-16); Calcium 9.2 mg/dL (8.4-10.2); Carbon Dioxide 24 mmol/L (22-29); Chloride 106 mmol/L (96-108); Estimated Glomerular Filt Rate 47; Glucose Random 71 mg/dL (60-115); Potassium 3.6 mmol/L (3.3-5.1); Sodium 140 mmol/L (135-145)
[2023-09-25 14:46] LABS: Thyroid Stimulating Hormone 73.75 uIU/mL (0.32-4.0)
[2023-09-26 03:45] LABS: Syphilis Screen Nonreactive (Nonreactive)
== END 2023-09-25 12:07 | disposition home or self-care (01) ==
LOC: HO.HHCL 12:06
PROVIDERS: Internal Medicine Geriatric Medicine; Visit Provider Internal Medicine
DX: K14.0 Glossitis (principal)
CPT/HCPCS: 36415; 80048; 80076; 83036; 83880; 84443; 85025; 86780

== ENCOUNTER 2023-10-29 12:33 | Outpatient (AMB) | payer MEDICAID, SELFPAY ==
[2023-10-29 13:15] VITALS: BP 110/70; PULSE 58; O2SAT 98; BMI 39.6
--- NOTE | 2023-10-29 13:15 | A.OFFVIS_ITS ---
Vital Signs 10/29/23 13:15 Height 5 ft Weight 202 lb 13.204 oz BMI 39.6 BP 110/70 Blood Pressure Location Lt brachial Position Sitting Pulse 58 Pulse Source Pulse Oximeter Pulse Oximetry (%) 98 Oxygen Delivery Method Room Air Intake Visit Reasons: asthma Intake Note: pt is here for follow up and states he had 3-4 days of ches pain, when he wanted to breath he felt his air was clogged, and when taking a deep breath, he gets pain across the chest Mechanical Manufacturing Technician Required: Yes Allergies No Known Allergies Allergy (Verified 10/29/23 13:40) Medication List - Last Reconciled 10/29/23 by Jolie Ocasio MD albuterol sulfate 90 mcg/actuation (ProAir HFA) 2 puffs PO Q4-6H PRN albuterol sulfate mg inhalation Q4H PRN blood sugar diagnostic (FreeStyle Lite Strips) As directed blood-glucose meter (FreeStyle [place] Lite kit) As directed budesonide-formoterol 80-4.5 mcg/actuation (Symbicort) 2 puffs inhalation BID buspirone 5 mg PO BID cyclobenzaprine 5 mg PO TID PRN 7 days diclofenac sodium 1% 2 grams topical QID glecaprevir-pibrentasvir 100-40 mg (Mavyret) 3 tabs PO DAILY 8 weeks hydroxyzine HCl 1 tab PO TID PRN lancets (TRUEplus Lancets) As directed losartan-hydrochlorothiazide 50-12.5 mg 1 tab PO DAILY methimazole 20 mg (2 x 10 mg) PO BID metoprolol succinate ER 50 mg PO DAILY naproxen 500 mg PO BID 7 days omeprazole 1 cap PO DAILY ramelteon (Rozerem) 1 tab PO BEDTIME simvastatin 20 mg PO QPM Do you need a note to return to daycare/school/sports/work: No HPI HPI asthma: Details: 58 years old gentleman, known case of asthma/COPD, comes after 6 months for follow-up. He smokes about half pack of cigarettes a day. Also smokes 2-3 joints of marijuana every day. He complains of feeling like his breathing is blocked, and this usually happens when he smokes marijuana. He is using ProAir as needed. And also albuterol in the nebulizer which he has borrowed from his sister. THIS GENTLEMAN IS REALLY CONFUSED ABOUT HIS MEDS, In our list it is noted that he is supposed to be on Symbicort 80-4.52 puffs b.i.d., but he say is he does not have it. He was also supposed to be on Advair but say he does not like the powder. Anyway his breathing does not seem to be bad. The other thing I note is that since his subtotal thyroidectomy, he has not seen the sapphire stylus grinder for follow-up. And also he has probably not been seen by the primary care doctor . I see a recent lap tests showing markedly elevated TSH level. In the list of his medications the he is still taking methimazole 20 mg b.i.d. He has had a recent lap tests , in September but really does not know who had ordered the test. 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) Hepatitis C Diabetes Hepatitis C Surgical History History of knee surgery H/O abdominal surgery Family History Mother Diabetes Mother HTN (hypertension) Sister Diabetes HTN (hypertension) Other No family history of cancer Social History Household Members: Family Household Members Other:: sister Housing: Apartment Are you a primary aged or disabled care worker to a significant other at home: Yes (mom) Do you presently have visiting nurse or other home services: No Alcohol intake: current Alcohol intake frequency: holidays/special occasions only Patient Tobacco Use Status: Current everyday Tobacco user Tobacco use type: Cigarette Cigarette Packs Per Day: 0.5 Cigarettes Per Day: 5 Years Smoked: 40 +/- Substance Use Type: Marijuana service: No Current occupational status: unemployed Review of Systems Const All systems reviewed & are unremarkable except as noted in HPI and below Eyes Reports no additional complaints ENT Reports no additional complaints Card Denies chest pain at rest, Denies irregular heart rhythm, Denies leg edema, Denies lightheadedness and Reports dyspnea on exertion (ONLY MILD) Resp Reports cough, Reports dyspnea on exertion (ONLY MILD) and Reports wheezing GI Reports heartburn (GERD SYMPTOMS UNDER CONTROL) Reports no additional complaints Musc Reports no additional complaints Skin/Breast Reports system reviewed and no additional complaints, except as documented Neuro Reports no additional complaints Psych Reports no additional complaints Endo Reports other (BEING TREATED FOR DIABETES MELLITUS) Aller/Immun Reports no additional complaints and Reports wheezing Physical Exam Vital Signs: Last Vital Signs Pulse 58 10/29/23 13:15 BP 110/70 10/29/23 13:15 Pulse Ox 98 10/29/23 13:15 Oxygen Delivery Method Room Air 10/29/23 13:15 BMI result Body Mass Index 39.6 Const General: comfortable, no acute distress, alert and awake Orientation/consciousness: patient oriented x3 HEENT Head: Yes normal to inspection General nose exam: No nasal polyps present and No nasal discharge present Face and sinus: Yes sinuses nontender Mouth: oropharynx normal Throat: Yes posterior oropharynx normal (MODERATE AMOUNT OF MUCOPURULENT SECRETIONS ARE NOTED) Eyes General: appearance normal, both eyes and all related structures Neck Neck: Yes normal visual inspection, Yes no lymphadenopathy, Yes trachea midline and Yes no JVD Thyroid: Thyroid normal Chest Chest palpation & inspection: normal inspection of the chest, normal palpation of entire chest wall and no tenderness Resp Other: PERCUSSION NOTE RESONANT, BREATH SOUNDS ARE DISTANT WITH PROLONGED EXPIRATORY PHASE NO WHEEZES OR RHONCHI ARE HEARD. Cardio Palpation: normal PMI Rate: regular rate Rhythm: regular rhythm Heart sounds: no gallops and no murmurs Peripheral pulses: Peripheral pulses 2+ throughout GI Palpation (GI): Soft to palpation, nontender, No hepatosplenomegaly present and no masses Auscultation: normal bowel sounds Back/Spine/Pelvis Thoracic/Lumbar Spine: thoracic and lumbar spine normal to inspection Skin General skin exam: no rashes or lesions noted Neuro General: patient oriented x3 and no focal motor deficits Cranial nerves: Yes CN's II-XII intact bilaterally Extrem General: Yes normal to inspection, Yes no clubbing, cyanosis or edema and Yes no calf tenderness Psych Appearance: grossly normal and well kempt Speech and movement: Normal speech and movement present Results Reviewed Results Reviewed: Recent lap tests reviewed, CBC is relatively normal. TSH LEVEL 73.7 Assessment & Plan Assessment & Plan (1) Asthma-COPD overlap syndrome: Comment: PULMONARY FUNCTION TEST CONSISTENT WITH MODERATELY SEVERE OBSTRUCTIVE AIRWAY DISORDER AND GOOD RESPONSE TO BRONCHODILATOR THERAPY. RESULTS ARE C/W ASTHMA/COPD OVERLAP SYNDROME. Well controlled at this time. Code(s): J44.9 - Chronic obstructive pulmonary disease, unspecified Category: Medical Plan: [place]: SYMBICORT 80-4.5 2 PUFFS B.I.D., May USE PRN AND ALBUTEROL ( VENTOLIN ) 2 PUFFS Q 4-6 HOURS P.R.N.. ALTERNATIVELY HE CAN USE ALBUTEROL SOLUTION IN THE UPDRAFT Q 4-6 HOURS P.R.N.. (2) Smoker: Comment: HAS LONG-TIME HISTORY OF SMOKING, HE HAS ACTUALLY CUT DOWN TO 10 CIGARETTES A DAY. Code(s): F17.200 - Nicotine dependence, unspecified, uncomplicated Category: Social Hx Plan: COUNSELED TO QUIT SMOKING COMPLETELY, HE STATES THAT HE WOULD CUT DOWN THE NUMBER OF CIGARETTES (3) Hypothyroidism (acquired): Comment: PATIENT HAS HAD SUBTOTAL THYROIDECTOMY COUPLE YEARS AGO AND HAS BEEN ON METHIMAZOLE 20 MG B.I.D.. NOT SURE IF HE IS TAKING IT OR NOT. TSH LEVEL 73.7, CONSISTENT WITH POST SURGERY ACQUIRED HYPOTHYROIDISM. Code(s): E03.9 - Hypothyroidism, unspecified Category: Medical Plan: I URGED HIM TO MAKE APPOINTMENT WITH HIS PRIMARY CARE PHYSICIAN AT [facility]. HE NEEDS TO STOP TAKING METHIMAZOLE. HE NEEDS TO BE STARTED ON THYROID REPLACEMENT THERAPY. Coding Level of Care Code Est Pt Level 3 (96622) Diagnoses Asthma-COPD overlap syndrome J44.9 Smoker F17.200 Hypothyroidism (acquired) E03.9
== END 2023-10-29 13:40 | disposition home or self-care (01) ==
PROVIDERS: PCP Nurse Practitioner Primary Care; Referring Provider Nurse Practitioner Primary Care; Visit Provider Internal Medicine
DX: J44.9 Chronic obstructive pulmonary disease, unspecified (principal); F17.200 Nicotine dependence, unspecified, uncomplicated; E03.9 Hypothyroidism, unspecified
CPT/HCPCS: 99213

== ENCOUNTER → 2023-10-29 12:33 | Outpatient (BNVA) | payer MEDICAID, SELFPAY | PROVIDERS: PCP Nurse Practitioner Primary Care; Visit Provider Internal Medicine | DX: J44.9 Chronic obstructive pulmonary disease, unspecified (principal); E03.9 Hypothyroidism, unspecified; F17.210 Nicotine dependence, cigarettes, uncomplicated | CPT/HCPCS: 99212 ==

== ENCOUNTER 2024-03-03 12:59 | Outpatient (AMB) | payer MEDICAID, SELFPAY ==
[2024-03-03 13:24] VITALS: BP 148/80; PULSE 53; O2SAT 96; BMI 32.6
--- NOTE | 2024-03-03 13:24 | A.OFFVIS_ITS ---
Vital Signs 03/03/24 13:24 Height 5 ft 6 in Weight 202 lb BMI 32.6 BP 148/80 H Blood Pressure Location Lt brachial Position Sitting Pulse 53 Pulse Source Pulse Oximeter Pulse Oximetry (%) 96 Oxygen Delivery Method Room Air Intake Visit Reasons: Asthma Intake Note: pt is here for follow up and states he had run out of his inhaler and he noticed he didn't really need this, he was doing well with nothing, no short of breath or fatigue Manufacturing Sr Engineer Required: Yes Manufacturing Sr Engineer Services: Manufacturing Sr Engineer Present Manufacturing Sr Engineer Name: silva Allergies No Known Allergies Allergy (Verified 03/03/24 13:43) Medication List - Last Reconciled 03/03/24 by Jolie Ocasio MD albuterol sulfate 90 mcg/actuation (ProAir HFA) 2 puffs PO Q4-6H PRN blood sugar diagnostic (FreeStyle Lite Strips) As directed blood-glucose meter (FreeStyle [place] Lite kit) As directed budesonide-formoterol 80-4.5 mcg/actuation (Symbicort) 2 puffs inhalation BID lancets (TRUEplus Lancets) As directed levothyroxine 137 mcg PO QAM Do you need a note to return to daycare/school/sports/work: No HPI HPI Asthma: Details: THIS 58 YEARS OLD GENTLEMAN, MONEGASQUE-SPEAKING, SMOKER, HALF PACK OF CIGARETTES A DAY, COMES HERE FOR FOLLOW-UP FOR HIS BRONCHIAL ASTHMA SINCE HIS LAST VISIT HE STATES THAT HE HAS NOT USED ANY INHALER. HE DENIES ANY COUGH OR SHORTNESS OF BREATH ON EXERTION. HE HAS NO WHEEZES. HE CAN WALK AROUND EVEN UP TO 1 MILD WITHOUT GETTING SHORT OF BREATH. HE ATTRIBUTES THIS IMPROVEMENT IN HIS BREATHING TO ADEQUATE TREATMENT OF HYPOTHYROIDISM. I TALKED TO HIM ABOUT QUITTING SMOKING AND HE CLAIMS THAT THIS IS DIFFICULT FOR HIM BECAUSE SOME MEMBERS OF THE FAMILY ALSO SMOKE. 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) Hepatitis C Diabetes Hepatitis C Surgical History History of knee surgery H/O abdominal surgery Family History Mother Diabetes Mother HTN (hypertension) Sister Diabetes HTN (hypertension) Other No family history of cancer Social History Household Members: Family Household Members Other:: sister Housing: Apartment Are you a primary anesthesiologist and critical care to a significant other at home: Yes (mom) Do you presently have visiting nurse or other home services: No Alcohol intake: current Alcohol intake frequency: holidays/special occasions only Patient Tobacco Use Status: Current everyday Tobacco user Tobacco use type: Cigarette Cigarette Packs Per Day: 0.5 Cigarettes Per Day: 5 Years Smoked: 40 +/- Substance Use Type: Marijuana service: No Current occupational status: unemployed Review of Systems Const All systems reviewed & are unremarkable except as noted in HPI and below Eyes Reports no additional complaints ENT Reports no additional complaints Card Denies chest pain at rest, Denies irregular heart rhythm, Denies leg edema, Denies lightheadedness and Reports dyspnea on exertion (ONLY MILD) Resp Reports cough, Reports dyspnea on exertion (ONLY MILD) and Reports wheezing GI Reports heartburn (GERD SYMPTOMS UNDER CONTROL) Reports no additional complaints Musc Reports no additional complaints Skin/Breast Reports system reviewed and no additional complaints, except as documented Neuro Reports no additional complaints Psych Reports no additional complaints Endo Reports other (BEING TREATED FOR DIABETES MELLITUS) Aller/Immun Reports no additional complaints and Reports wheezing Physical Exam Vital Signs: Last Vital Signs Pulse 53 03/03/24 13:24 BP 148/80 H 03/03/24 13:24 Pulse Ox 96 03/03/24 13:24 Oxygen Delivery Method Room Air 03/03/24 13:24 BMI result Body Mass Index 32.6 Const General: comfortable, no acute distress, alert and awake Orientation/consciousness: patient oriented x3 HEENT Head: Yes normal to inspection General nose exam: No nasal polyps present and No nasal discharge present Face and sinus: Yes sinuses nontender Mouth: oropharynx normal Throat: Yes posterior oropharynx normal (MODERATE AMOUNT OF MUCOPURULENT SECRETIONS ARE NOTED) Eyes General: appearance normal, both eyes and all related structures Neck Neck: Yes normal visual inspection, Yes no lymphadenopathy, Yes trachea midline and Yes no JVD Thyroid: Thyroid normal Chest Chest palpation & inspection: normal inspection of the chest, normal palpation of entire chest wall and no tenderness Resp Other: PERCUSSION NOTE RESONANT, BREATH SOUNDS ARE EQUAL ON BOTH SIDES AND CLEAR. NO WHEEZES RHONCHI OR CREPITATIONS ARE HEARD. Cardio Palpation: normal PMI Rate: regular rate Rhythm: regular rhythm Heart sounds: no gallops and no murmurs Peripheral pulses: Peripheral pulses 2+ throughout GI Palpation (GI): Soft to palpation, nontender, No hepatosplenomegaly present and no masses Auscultation: normal bowel sounds Back/Spine/Pelvis Thoracic/Lumbar Spine: thoracic and lumbar spine normal to inspection Skin General skin exam: no rashes or lesions noted Neuro General: patient oriented x3 and no focal motor deficits Cranial nerves: Yes CN's II-XII intact bilaterally Extrem General: Yes normal to inspection, Yes no clubbing, cyanosis or edema and Yes no calf tenderness Psych Appearance: grossly normal and well kempt Speech and movement: Normal speech and movement present Results Reviewed Results Reviewed: SPIROMETRY FVC FEV1 FEF 25-75 12.09.22 77 % 66 % 41 % 10.16. 24 83 % 73 % 39 % Assessment & Plan Assessment & Plan (1) Asthma-COPD overlap syndrome: Comment: PULMONARY FUNCTION TEST CONSISTENT WITH MODERATELY SEVERE OBSTRUCTIVE AIRWAY DISORDER AND GOOD RESPONSE TO BRONCHODILATOR THERAPY. RESULTS ARE C/W ASTHMA/COPD OVERLAP SYNDROME. Well controlled at this time. Since his last visit his breathing has been better. He thinks as his thyroid function has improved, he can breathe better. He has stopped using Symbicort. He does have albuterol HFA on hand but uses only infrequently. Spirometry performed in the office today shows that his FVC and FEV1 values are much improved, almost near normal However FEF 25-70 is still quite low c/w COPD. Code(s): J44.9 - Chronic obstructive pulmonary disease, unspecified Category: Medical Plan: I instructed him to use albuterol HFA only p.r.n. if he gets short of breath or has some wheezing at rest. He does not need to use albuterol HFA for exercise induced shortness of breath. He does not need to use Symbicort. (2) Smoker: Comment: HAS LONG-TIME HISTORY OF SMOKING, HE HAS ACTUALLY CUT DOWN TO 10 CIGARETTES A DAY. Code(s): F17.200 - Nicotine dependence, unspecified, uncomplicated Category: Social Hx Plan: HAD A GOOD TALK WITH HIM THROUGH THE PROVIDER CONTRACTING CONSULTANT AND I STRESS THAT HE SHOULD AIM TO QUIT COMPLETELY. HE SAY IS IT IS SOMEWHAT DIFFICULT BUT HE WILL TRY. Coding Level of Care Code Est Pt Level 3 (93150) Diagnoses Asthma-COPD overlap syndrome J44.9 Smoker F17.200
== END 2024-03-03 14:04 | disposition home or self-care (01) ==
PROVIDERS: PCP Nurse Practitioner Primary Care; Visit Provider Internal Medicine
DX: J44.9 Chronic obstructive pulmonary disease, unspecified (principal); F17.200 Nicotine dependence, unspecified, uncomplicated
CPT/HCPCS: 99213

== ENCOUNTER → 2024-03-03 12:59 | Outpatient (BNVA) | payer MEDICAID, SELFPAY | PROVIDERS: PCP Nurse Practitioner Primary Care; Visit Provider Internal Medicine | DX: J44.9 Chronic obstructive pulmonary disease, unspecified (principal); F17.210 Nicotine dependence, cigarettes, uncomplicated | CPT/HCPCS: 99212 ==

== ENCOUNTER 2024-08-27 13:14 | Outpatient (REF) | payer MEDICAID, SELFPAY ==
--- OUTSIDE RECORDS SUMMARY | 2024-08-27 15:13 | XMS_ITS | Clinical Summary ---
Author Organization [employer] Address [address] [facility] 7t [place] [address] Care Team Providers Care Host/Hostess Name Role Phone Mary Alice Vega [facility] Primary Care Provider [phone] Allergies No known active allergies Medications Spacer/Aero-Holdin [...] tongue ulcer, Rx Paxlovid x 5 days, [place] interactions module checked, no significant interactions found. [...] b.i.d ?? Albuterol PRN ?? Followed by [facility] pulmonology Assessment & Plan (08/25/2022 7:45 AM [...] Completed HCV tx with mavyret 2021 through [facility]. Followed by [facility] GI Resolved Problems Problem Noted Date Diagnosed Date Resolved Date Dyspnea on exertion 10/06/2021 08/26/19 23 Encounters Date Type Department Care Team Description 08/09/2024 Telephone [facility] MEDICINE [address] [place] [address] Mary Alice Vega FNP No Show 07/30/2024 Population Health Risk Score [facility] [address] [place] [address] [phone] Provider, Population Health Generic 06/29/2024 Refill [facility] MED[facility] [address] [place] [address] Mary Alice Vega FNP Acquired hypothyroidism; Hepatic cirrhosis, unspecified hepatic cirrhosis type, unspecified whether ascites present (CMS/HCC) 06/25/2024 Telephone [facility] MEDICINE [address] [place] [address] Mary Alice Vega FNP No Show from [...] Description 08/30/2024 11:15 AM EDT Office Visit [facility] MED[facility]INE [address] [place] [address] [facility] [address] [place] [address] Health Maintenance Due Date Last Done Comments [...] PM EDT) Hemoglobin A1c 5.1 <6.0 % [facility] Comment:Hemoglobin A1C Refer ence Range Adults: 4.8 - 6.0 % Non diabetic: < 6.0 % Goal: < 7.0 %Additional Action Suggested: > 8.0 %Note: Hemoglobin A1c results are invalid for patients with abnormal amounts of HbF. Blood transfusions may impact the HbA1c concentration in the patient sample. Estimated Average Glucose 100 mg/dL [facility] Comment:eAG = Estimated ave rage glucose which is %A1C expressed asaverage glucose, using the formula of the C6T-SdyydxhZcamhoe Glucose study (ADAG), Diabetes Care, Vol.31,#8,Dec. 2007 09/25/2023 12:0 7 PM EDT 09/25/2023 1:19 PM EDT Diogenes Earle [facility] LAB BLOOD ORDERABLES Final Resul t Performing Organization Address City/[facility]/ZIP Co de Phone Number [facility] [address] [place] [address] [phone] * ALBUMIN, RANDOM URINE W/CREATININE (07/24/2021 [...] Creatinine, Urine 122 20 - 320 mg/dL [facility] 07/24/2021 2:33 PM EST Danielle Iniguez NP LAB URINE ORDERABLES Final Resu lt [facility] [address] * HIV 1/2 ANTIGEN/ANTIBODY,FOURTH GENERATION W/RFL [...] ? For additional information please refer to http://American [employer]Care.Axentis Software/faq/VED187 (This link is being provided for informational/ educational purposes only.) ? The performance of this assay has not been clinically validated in patients less than 2 years old. ?? 07/24/2021 2:33 PM EST us Danielle Iniguez BOAT LOADER LAB BLOOD ORDERABLES Final Resu lt [facility] [address] * (ABNORMAL) LIPID PANEL, STANDARD (07/24/2021 [...] ?? Weston CARBAJAL et al. SHEREE. 2013;310(19): 4030-4901 ?? (http://American BioCare.Reveal Imaging Technologies.Jama Software/faq/EWJ488) Non-HDL Cholesterol 49 <130 mg/dL (calc) [facility] Comment: For patients with diabetes plus 1 major ASCVD risk ?? factor, treating to a non-HDL-C goal of <100 mg/dL ?? (LDL-C of <70 mg/dL) is considered a therapeutic ?? option. Triglycerides 86 <150 mg/dL [facility] 07/24/2021 2:33 PM EST us Danielle Iniguez NP LAB BLOOD ORDERABLES Final Resu lt [facility] [address] [place] [address], from Last 3 Months or Most Recently Relevant to Health Maintenance Insurance [facility] C3 HSN FULL * Guarantor: Daniel Nieto Account Type Relation to Patient Date of Phone Billing Address Dental Self 1965 [address] [facility] [address] [place] [address] D[facility]AL-[facility] MEDICAID STAND ADULT Care Teams Host/Hostess Relationship Specialty Start Date End Date Mary Alice Vega FNP [address] [place] [phone] PCP - General Family Medicine 07/16/22
[2024-08-27 15:28] LABS: MANUAL DIFF FLAG NO
[2024-08-27 15:41] LABS: Prothrombin Time 11.3 SEC (10.9-12.4)
[2024-08-27 15:51] LABS: Basophils Percent Auto 0.8 % (0-2); Eosinophils Absolute Auto 0.1 X10*3/uL (0.0-0.4); Eosinophils Percent Auto 2.8 % (0-4); Hematocrit 47.1 % (42.0-52.0); Hemoglobin 17.1 g/dl (14.0-18.0); Imm Gran Abs Auto 0.01 X10*3/uL (0.00-0.03); Imm Gran Pct Auto 0.3 % (0.0-0.4); Lymphocytes Absolute Auto 1.2 X10*3/uL (1.2-4.9); Lymphocytes Percent Auto 33.2 % (20-40); Mean Corpuscular HGB Conc 36.3 g/dl (31.0-36.0); Mean Corpuscular Hemoglobin 30.8 pg (27.0-33.0); Mean Corpuscular Volume 84.9 fL (80.0-98.0); Mean Platelet Volume 9.2 fL (9.4-12.4); Monocytes Absolute Auto 0.3 X10*3/uL (0.1-1.2); Monocytes Percent Auto 9.3 % (2-11); Neutrophils Absolute Auto 1.9 x10*3/uL (2.0-8.3); Neutrophils Percent Auto 53.6 % (45-73); Platelet Count 124 X10*3/uL (160-400); Red Blood Count 5.55 X10*6/uL (4.60-5.80); Red Cell Distribution Width 13.5 % (11.0-16.0); White Blood Count 3.6 X10*3/uL (4.8-10.8)
[2024-08-27 16:10] LABS: Alanine Aminotransferase 51 U/L (0-40); Alkaline Phosphatase 101 U/L (39-117); Anion Gap 12 (12-20); Aspartate Amino Transferase 41 U/L (5-37); Bilirubin Total 0.8 mg/dL (0.0-1.0); Blood Urea Nitrogen 10 mg/dL (9-16); Calcium 8.8 mg/dL (8.4-10.2); Carbon Dioxide 25 mmol/L (22-29); Chloride 108 mmol/L (96-108); Cholesterol 232 mg/dL (<200); Estimated Glomerular Filt Rate > 60; Glucose Random 82 mg/dL (60-115); HDL Cholesterol 58 mg/dL (>40); LDL Cholesterol Calculated 142 mg/dL (<100); Potassium 4.1 mmol/L (3.3-5.1); Sodium 141 mmol/L (135-145); Total Protein 7.2 g/dL (6.5-8.0); Triglycerides 160 mg/dL (<150)
[2024-08-27 16:26] LABS: TSH reflex Free T4 0.14 uIU/mL (0.32-4.0)
[2024-08-27 16:33] LABS: Creatinine Urine 177.59 mg/dL
[2024-08-27 16:44] LABS: Microalbum/Creatinine Ratio Ur 1126.1 ug/mg cr (<30); Microalbumin Urine > 2000.0 mg/L
[2024-08-27 17:06] LABS: Free T4 (Free Thyroxine) 1.08 ng/dL (0.71-1.85)
[2024-08-28 18:28] LABS: Hepatitis B Viral DNA Qn - cp NOT DETECTED Log IU/mL (NOT DETECTED); Hepatitis B Viral DNA Qn-IU/mL NOT DETECTED (NOT DETECTED)
[2024-08-30 08:19] LABS: HBS Num1 68.35 mIU/mL (0-7.99); HBc Num1 9.53 S/CO (0.00-0.79); HBsAGNum1 0.31 S/CO (0.00-0.99); Hepatitis B Surface Antigen Negative (Negative); ~HepC Num1 16.38 S/CO (0.00-0.79); ~Hepatitis B Surface Antibody REACTIVE (Nonreactive); ~Hepatitis C Antibody Reactive (Nonreactive)
[2024-08-30 08:33] LABS: HIV AB/AG Nonreactive (Nonreactive); HIV Num 1 0.08 S/CO (0.00-0.99)
[2024-08-30 09:25] LABS: HBc Num2 8.85 S/CO; HBc Num3 8.98 S/CO; Hepatitis B Core Antibody Reactive (Nonreactive)
[2024-08-30 13:12] LABS: Alpha Fetoprotein 3.2 ng/mL (<6.1)
[2024-08-30 13:27] LABS: HCV Log PCR <1.18 NOT DETECTED Log IU/mL (NOT DETECTED); HepC Viral Load <15 NOT DETECTED IU/mL (NOT DETECTED)
[2024-08-31 08:13] LABS: ~Hepatitis A Antibody IgM Nonreactive (Nonreactive)
== END 2024-08-27 13:15 | disposition home or self-care (01) ==
LOC: HO.LAB 13:14
PROVIDERS: Registered Nurse; PCP Nurse Practitioner Primary Care; Visit Provider Internal Medicine
DX: E11.630 Type 2 diabetes mellitus with periodontal disease (principal); K74.60 Unspecified cirrhosis of liver; E03.9 Hypothyroidism, unspecified; B18.2 Chronic viral hepatitis C; Z86.19 Personal history of other infectious and parasitic diseases
CPT/HCPCS: 36415; 80053; 80061; 82043; 82105; 82570; 84439; 84443; 85025; 85027; 85610; 86704; 86706; 86709; 86803; 87340; 87389; 87517; 87522; 99202

== ENCOUNTER 2024-08-27 13:14 | Outpatient (AMB) | payer MEDICAID, SELFPAY ==
--- NOTE | 2024-08-27 13:26 | A.OFFVIS_ITS ---
Vital Signs 08/27/24 13:28 Height 5 ft 6 in Weight 194 lb 0.108 oz BMI 31.3 BP 164/94 H Blood Pressure Location Lt brachial Position Sitting Intake Visit Reasons: Cirrhosis Intake Note: Daniel presents in the office as a new patient for Cirrhosis. CC: CC: States that sometimes he feels pressure in his abdomen and it feels stiff. Geospatial Program Management Officer Required: Yes Geospatial Program Management Officer Name: [id number] Louie Allergies No Known Allergies Allergy (Verified 08/27/24 13:55) HPI Comments Details: 58 y.o M with PMH of HCV genotype 1a s/p mavyret 2021 with svr12 who is here to establish care for cirrhosis. Seen with the help of neon sign maker. Reports finding out about hep C while he was getting work up done for thyroidectomy. Was treated with Mavyret by Dr Guo in 2021. He does not recall seeing a electric range preparer during this time. Recently referred over by his PCP for ongoing cirrhosis care. Patient does not have any abdominal pain, nausea, vomiting. Does drink alcohol. 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 No family history of liver cancer. Patient is also overdue for colorectal cancer screening. No recent labs available. Labs from last year show normocytic anemia with thrombocytopenia ongoing for the past 3 years. AST greater than ALT consistent with patient's reported history of alcohol use. Also noted to have an extremely high TSH, and patient does report taking his levothyroxine as prescribed. Says that niece helps him out with it. 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) Hepatitis C Diabetes Hepatitis C Surgical History History of knee surgery H/O abdominal surgery Family History (Updated 08/27/24 @ 13:58 by ADRIANA Jin) Mother Diabetes Mother HTN (hypertension) Sister Diabetes HTN (hypertension) Father Stomach cancer Other No family history of cancer Social History Household Members: Family Household Members Other:: sister Housing: Apartment Are you a primary skin care therapist to a significant other at home: Yes (mom) Do you presently have visiting nurse or other home services: No Alcohol intake: current Alcohol intake frequency: holidays/special occasions only Patient Tobacco Use Status: Current everyday Tobacco user Tobacco use type: Cigarette Cigarette Packs Per Day: 0.5 Cigarettes Per Day: 5 Years Smoked: 40 +/- Substance Use Type: Marijuana service: No Current occupational status: unemployed Review of Systems Const All systems reviewed & are unremarkable except as noted in HPI and below Physical Exam Vital Signs: Last Vital Signs BP 164/94 H 08/27/24 13:28 BMI result Body Mass Index 31.3 Gen Appear: NAD, well nourished HEENT: No scleral icterus, no bitemporal wasting noted Chest: CTA CVS: Regular S1/S2 no murmurs Abd: soft, nontender, nondistended, no shifting dullness to percussion, bowel sounds active Ext: No peripheral edema bilaterally Neuro: A/Ox3, no asterixis Derm: Spider angioma and palmar erythema noted Assessment & Plan Assessment & Plan (1) Cirrhosis: Code(s): K74.60 - Unspecified cirrhosis of liver Category: Medical (2) History of hepatitis C: Code(s): Z86.19 - Personal history of other infectious and parasitic diseases Category: Medical (3) Hepatitis B core antibody positive: Code(s): R76.8 - Other specified abnormal immunological findings in serum Category: Medical (4) Hypothyroidism (acquired): Comment: PATIENT HAS HAD SUBTOTAL THYROIDECTOMY COUPLE YEARS AGO AND HAS BEEN ON MET HIMAZOLE 20 MG B.I.D.. NOT SURE IF HE IS TAKING IT OR NOT. TSH LEVEL 73.7, CONSISTENT WITH POST SURGERY ACQUIRED HYPOTHYROIDISM. Code(s): E03.9 - Hypothyroidism, unspecified Category: Medical (5) Cardiomyopathy: Code(s): I42.9 - Cardiomyopathy, unspecified Category: Medical (6) Thrombocytopenia: Code(s): D69.6 - Thrombocytopenia, unspecified Category: Medical Plan Appears to have at least compensated cirrhosis secondary to history of hep C, + metALD. Reviewed with the patient that will need updated labs as well as HCC screening with ultrasound. In addition, we will schedule him for EGD. A colonoscopy will also be scheduled the same time given normocytic anemia. Plan: -labs as below including MELD labs as well as HCV RNA -Also noted to have HBcore Ab so will get HBsAg and DNA to r/o active HBV -ultrasound abdomen -previous history of cardiomyopathy noted, an echocardiogram ordered -EGD and colonoscopy ordered-timing contingent on results of echocardiogram -MiraLax Gatorade prep instructions reviewed. Handout provided as well. Patient with poor health literacy, but says his niece can help him out with reviewing instructions again at home. -he was also counseled on compliance with levothyroxine. Will check updated TSH Follow-up after bidirectional endoscopy Orders: Orders Complete Blood Count no Diff Today K74.60 - Unspecified cirrhosis of liver, Z86.19 - Personal history of other infectious and parasitic diseases Prothrombin Time INR Today K74.60 - Unspecified cirrhosis of liver, Z86.19 - Personal history of other infectious and parasitic diseases Hepatitis B Surface Antigen Today K74.60 - Unspecified cirrhosis of liver, Z86.19 - Personal history of other infectious and parasitic diseases Hepatitis B Viral DNA Qn Today K74.60 - Unspecified cirrhosis of liver, Z86.19 - Personal history of other infectious and parasitic diseases TSH reflex Free T4 Today E03.9 - Hypothyroidism, unspecified US abdomen complete Today K74.60 - Unspecified cirrhosis of liver Comprehensive Met. Panel Today K74.60 - Unspecified cirrhosis of liver, Z86.19 - Personal history of other infectious and parasitic diseases Hepatitis C Viral Load Today B18.2 - Chronic viral hepatitis C, K74.60 - Unspecified cirrhosis of liver, Z86.19 - Personal history of other infectious and parasitic diseases HIV Ab/Ag Today K74.60 - Unspecified cirrhosis of liver, Z86.19 - Personal history of other infectious and parasitic diseases CA echo transthoracic complete Today I42.9 - Cardiomyopathy, unspecified Medications: New polyethylene glycol 3350 (Miralax) mix in 64 oz gatorade for prep for colonoscopy 238 grams PO ONCE 238 grams 0RF Patient Instructions: - We have ordered blood work for you to be done today - An ultrasound of your heart and your liver has been ordered - Once these results are available you will also be scheduled for an upper endoscopy and colonoscopy - The instructions to prepare for this test are in the handout given to you - The medication to do colon clean out has been sent to the pharmacy. Please do not mix until the day before the procedure. Coding Level of Care Code New Pt Level 5 (79471) Complex EM visit Add On G2211 Diagnoses Cirrhosis K74.60 History of hepatitis C Z86.19 Hepatitis B core antibody positive R76.8 Hypothyroidism (acquired) E03.9 Cardiomyopathy I42.9 Thrombocytopenia D69.6
[2024-08-27 13:28] VITALS: BP 164/94; BMI 31.3
--- OUTSIDE RECORDS SUMMARY | 2024-08-27 13:42 | XMS_ITS | Clinical Summary ---
Author Organization [employer] Address [address] [facility] 7t [place] [address] Care Team Providers Care Cloth Layer Name Role Phone Mary Alice Vega [facility] Primary Care Provider [phone] Allergies No known active allergies Medications Spacer/Aero-Holdin g Chambers (Compact Space Chamber) device USE WITH albuterol 11/01/19 22 Active albuterol (2.5 MG/3ML) 0.083% nebulizer solutionIndication s:Asthma, unspecified asthma severity, unspecified whether complicated, unspecified whether persistent,Asthma, unspecified asthma severity, unspecified whether complicated, unspecified whether persistent Take 3 mL (2.5 mg) by nebulization every 4 (four) hours if needed for wheezing or shortness of breath. 75 mL 2 06/18/19 23 Active albuterol (Ventolin HFA) 108 (90 Base) MCG/ACT inhaler Inhale 2 puffs every 4 (four) hours if needed for wheezing. 18 g 1 01/03/20 23 Active budesonide-formote rol (Symbicort) 80-4.5 MCG/ACT inhalerIndications :Moderate persistent asthma without complication INHALE 2 PUFFS TWICE DAILY. RINSE MOUTH AFTER USING. DO NOT SWALLOW WATER 10.2 g 3 08/19/19 24 Active omeprazole (PriLOSEC) [address] capsuleIndications :Hepatic cirrhosis, unspecified hepatic cirrhosis type, unspecified whether ascites present (CMS/HCC) TAKE 1 CAPSULE BY MOUTH ONCE DAILY BEFORE A MEAL 90 capsule 1 03/15/20 24 Active levothyroxine (Synthroid) 137 MCG tabletIndications: Acquired hypothyroidism TAKE 1 TABLET BY MOUTH BEFORE BREAKFAST 90 tablet 1 06/30/19 25 Active ramelteon (Rozerem) 8 MG tabletIndications: Hepatic cirrhosis, unspecified hepatic cirrhosis type, unspecified whether ascites present (CMS/HCC) TAKE 1 TABLET BY MOUTH AT BEDTIME 30 tablet 3 06/30/19 25 Active Active Problems Problem Noted Date Diagnosed Date COVID 05/27/2023 Assessment & Plan (06/03/2023 9:52 PM EST): Symptomatic rx given initially, patient's sxs seem to be mostly related to tongue ulcer. I called for fu the next day and spoke with patient who gave the phone to his sister Ruthie Serna on the phone she says he had been coughing more the past 2d. He's not sure he wants to take covid meds. Due to risk factors, and risk of pharyngeal abscess from tongue ulcer, Rx Paxlovid x 5 days, [place] interactions module checked, no significant interactions found. Isolation until 06/01/23 and she/he will be out of work until then. Can be out of isolation, wearing a mask From 06/02 until 06/07/23 if sxs are resolved without other meds for at least 24h. Counseled to let close contacts within the past week, know about dx so they can be tested if needed. Rest (sleep at least 8 hours a night). Wash hands frequently Hydrate with plenty of water. Use saline nose drops Take Acetaminophen or Ibuprofen as Prn fever or discomfort Gargle with salt water and use throat sprays/lozenges prn Use heated, humidified air or take hot showers. If you have a fever, stay home and away from others (self isolation) until fever-free for 72 hours (temperature should be less than 100??F without medication). Tongue ulcer 05/27/2023 Assessment & Plan (05/28/2023 12:55 PM EST): ?Aphtous ulcer? Trauma? Will treat with amoxicillin to cover anaerobes and fu in 48h. He needs to be seen by dentist for a royal biopsy GLORIA, once he recovers from covid.Gargle with saline water. Order labs Moderate persistent asthma without complication 08/25/2022 Overview (08/25/2022): ?? Asthma/COPD overlabp ?? Current smokerwith >40 pack year hx ?? Symbicort b.i.d ?? Albuterol PRN ?? Followed by [facility] Assessment & Plan (08/25/2022 7:45 AM EDT): ?? Continue current regimen ?? Follow up with pulmonology as scheduled ?? Plan to discuss LDLCT screening at follow up if not already enrolled Substance use disorder 08/25/2022 Overview (08/25/2022): ?? Sober x 25 years Hyperthyroidism 10/31/2021 Overview (08/25/2022): ?? Followed by [facility] endocrinology Dr. Varner ?? Initially scheduled for thyroidectomy, unclear why visit cancelled Chronic hepatitis C 07/30/2021 Pain in joint of right shoulder 07/28/2021 Essential hypertension 07/28/2021 Overview (08/25/2022): ?? Amlodipine 5mg ?? Losartan 50mg/hctz 12.5mg Maintenance: BMP: Pending Lipid Panel: Pending ASCVD Risk: Calculate pending updated labs EKG: Obtain baseline at f/u - Aerobic exercise to reduce BP. Initial goal of 30 min walk 3-5x/week. Increase as tolerated. - low-sodium diet (goal: <2g/day) and heart healthy diet such as DASH to reduce BP and prevent ASCVD. - Home BP monitoring 1-2 x day with goal of <140/90. - Seek immediate medical attention for chest pain, palpitations, SOB, syncope, or sudden changes in mental status. - Do not change or discontinue current prescriptions without first consulting health care provider Assessment & Plan (08/25/2022 7:46 AM EDT): ?? Continue current regimen ?? Complete previously ordered labs Diabetes mellitus 07/28/2021 Overview (08/25/2022): ?? Diet controlled Current A1c: BMP: Pending Microalbumin: Pending Foot Exam: Complete at follow up Eye Exam: Discuss at follow up Lipid panel: Pending ASCVD: Calculate pending updated labs Statin: No ASA: No SURESH/ARB: Yes Encouraged regular aerobic exercise for improved glycemic control Encouraged daily foot checks Encouraged lean protein snacks and to avoid foods high in sugar and simple carbohydrates Treatment Goals: A1c goal: <7% FBG goal: <130 2 hour post prandial goal: <180 Assessment & Plan (08/25/2022 7:48 AM EDT): Lab Results Component Value Date HGBA1C 4.2 07/24/2021 Pain in right knee 07/28/2021 Cirrhosis of liver 07/24/2021 Overview (08/25/2022): ? ? Cirrhosis-compensated. s/t chronic HCV. Completed HCV tx with mavyret 2021 through [facility]. Followed by [facility] GI Resolved Problems Problem Noted Date Diagnosed Date Resolved Date Dyspnea on exertion 10/06/2021 08/26/19 23 Encounters Date Type Department Care Team Description 08/09/2024 Telephone [facility] [address] [place] [address] Mary Alice Vega FNP No Show 07/30/2024 Population Health Risk Score [facility] [address] [place] [address] [phone] Provider, Population Health Generic 06/29/2024 Refill [facility] [address] [place] [address] Mary Alice Vega FNP Acquired hypothyroidism; Hepatic cirrhosis, unspecified hepatic cirrhosis type, unspecified whether ascites present (CMS/HCC) 06/25/2024 Telephone [facility] [address] [place] [address] Mary Alice Vega FNP No Show from Last 3 Months Immunizations Name Administration Dates Next Due Pneumococcal Conjugate PCV 20 08/07/2022 Pneumococcal Polysaccharide PPSV23 08/28/2021 Tdap 08/07/2022,09/02/2007 Social History Tobacco Use Types Packs/Day Years Used Date Smoking Tobacco: Every Day Cigarettes Smokeless Tobacco: Never Alcohol Use Standard Drinks/Week Comments Never 0 (1 standard drink = 0.6 oz pur e alcohol) Depression Answer Date Recorded Patient Health Questionnaire-9 Score 0 01/16/2024 Patient Health Questionnaire-9 Score 0 01/16/2024 Last PHQ-9: Questionnaire Data Not on file 0 01/16/2024 Housing Stability Answer Date Recorded What is your housing situation today? I have bc carbajal 01/16/[address] you li ve. Do you have problems with any of the following? None of the above 01/16/2024 Food Insecurity Answer Date Recorded Within the past 12 months, y ou worried that your food would run out before you got money to buy more: Never True 01/16/2024 Within the past 12 months,th e food you bought just didn't last and you didn't have enough money to get more: Never True Transportation Answer Date Recorded In the past 12 months, has l ack of transportation kept you from medical appts, meetings, work or from getting things needed for daily living? Yes, it has kept me from medical appointments or getting medications. 02/23/2023 Utilities Answer Date Recorded In the past 12 months, has t he electric, gas, oil or water company threatened to shut off services in your home? No 01/16/2024 Depression Answer Date Recorded Patient Health Questionnaire-2 Score 0 01/16/2024 Internet Access Answer Date Recorded Internet Access Q1 Yes 01/16/2024 Internet Access Q2 Not on file 01/16/2024 Sex and Gender Information Value Date Recorded Sex Assigned at Male 03/18/2022 10:14 AM EDT Legal Sex Male 10:14 AM EDT Gender Identity Male 03/18/2022 10:14 AM EDT Sexual Orientation Choose not to disclose 2021 10:14 AM EDT Last Filed Vital Signs Vital Sign Reading Time Taken Comments Blood Pressure 140/88 01/16/2024 3:46 PM EDT Pulse 94 01/16/2024 3:20 PM EDT Temperature 36.4 ??C (97.5 ??F) 01/16/2024 3:20 PM ED T Respiratory Rate 20 01/16/2024 3:20 PM EDT Oxygen Saturation 98% 01/16/2024 3:20 PM EDT Inhaled Oxygen Concentration - - Weight 86.8 kg (191 lb 6.4 oz) 01/16/2024 3:20 P M EDT Height 167.6 cm (5' 6 ) 01/16/2024 3:20 PM EDT Body Mass Index 30.89 01/16/2024 3:20 PM EDT Plan of Treatment Upcoming Encounters Date Type Department Care Team (Late st Contact Info) Description 08/30/2024 11:15 AM EDT Office Visit [facility] [address] [place] [address] [facility] [address] [place] [address] Health Maintenance Due Date Last Done Comments CT Colonography 1965 Colonoscopy 1965 Colorectal Cancer Screening 1965 Dental Oral Exam 1965 Dental Prophylaxis 1965 Dental X-Ray: Bitewings 1963 Dental X-Ray: Full Mouth 1963 FIT DNA/Cologuard 1965 FIT 1963 FOBT 1965 Sigmoidoscopy 1965 Diabetes: Foot Exam 09/04/1973 Eye Exam 09/04/1973 Hepatitis A Vaccines (1 of 2 - Risk 2-dose series) 09/04/1982 Zoster Vaccines (1 of 2) 09/04/2013 Diabetes: Urine Protein Screening 07/24/2022 07/24/2021 Lipid Panel 07/24/2022 07/24/2021 SDOH Screening 07/18/2023 07/17/2022 Hepatitis B Vaccines (1 of 3 - Risk 3-dose series) 2023 RSV Patients and Patients Aged 60 years or older (1 - Risk 60-74 years 1-dose series) 2023 COVID-19 Vaccine (1 - 2023-2 5 season) 2024 Influenza Vaccine (#1) 2024 Diabetes: Hemoglobin A1C 03/27/2024 024, 09/25/2023, 07/24/2021 Alcohol/Substance Use Screening 01/15/2025 01/16/2024 Depression Screening 01/15/2025 01/16/2024, 01/16/2024 Tobacco Screening 01/21/2025 01/22/2024 DTaP/Tdap/Td Vaccines (3 - T d or Tdap) 08/07/2032 08/07/2022, 09/02/2007 HIV Screening Completed 07/24/2021 Pneumococcal Vaccine: 50+ Years Completed 08/07/2022, 08/28/2021 HIB Vaccines Aged Out No longer eligi ble based on patient's age to complete this topic HPV Vaccines Aged Out No longer eligi ble based on patient's age to complete this topic IPV Vaccines Aged Out No longer eligi ble based on patient's age to complete this topic Meningococcal Vaccine Aged Out No benito leanne eligible based on patient's age to complete this topic RSV under 20 months Aged Out No longe r eligible based on patient's age to complete this topic Rotavirus Vaccines Aged Out No longer eligible based on patient's age to complete this topic Procedures Procedure Name Priority Date/Time Associated Diagnosis Comments HEMOGLOBIN A1C Routine 09/25/2023 12:07 PM EDT HIV 1/2 ANTIGEN/ANTIBODY, FOURTH GENERATION W/RFL Routine 07/24/2021 2:33 PM EST ALBUMIN, RANDOM URINE W/CREATININE Routine 07/24/2021 2:33 PM EST LIPID PANEL, STANDARD Routine 07/24/2021 2:33 PM EST from Last 3 Months or Most Recently Relevant to Health Maintenance Results * Hemoglobin A1c (09/25/2023 12:07 PM EDT) Hemoglobin A1c 5.1 <6.0 % [facility] Comment:Hemoglobin A1C Refer ence Range Adults: 4.8 - 6.0 % Non diabetic: < 6.0 % Goal: < 7.0 %Additional Action Suggested: > 8.0 %Note: Hemoglobin A1c results are invalid for patients with abnormal amounts of HbF. Blood transfusions may impact the HbA1c concentration in the patient sample. Estimated Average Glucose 100 mg/dL [facility] Comment:eAG = Estimated ave rage glucose which is %A1C expressed asaverage glucose, using the formula of the S0P-TyrfbqlAxwbaie Glucose study (ADAG), Diabetes Care, Vol.31,#8,Dec. 2007 09/25/2023 12:0 7 PM EDT 09/25/2023 1:19 PM EDT Diogenes Earle AVELAR LAB BLOOD ORDERABLES Final Resul t Performing Organization Address City/[facility]/ZIP Co de Phone Number [facility] [address] [place] [address] [phone] * ALBUMIN, RANDOM URINE W/CREATININE (07/24/2021 2:33 PM EST) Microalbumin Urine 3.4 See Note: mg/dL [facility] Comment: Reference Range: ?? Reference Range Not established Microalb/Creat Ratio 28 <30 mcg/mg creat [facility] Comment: ?? The ADA defines abnormalities in albumin excretion as follows: ?? Albuminuria Category ?Result (mcg/mg creatinine) ?? Normal to Mildly increased ?? <30 Moderately increased ? 30-299 ?? Severely increased ? > OR = 300 ?? The ADA recommends that at least two of three specimens collected within a 3-6 month period be abnormal before considering a patient to be within a diagnostic category. Creatinine, Urine 122 20 - 320 mg/dL [facility] 07/24/2021 2:33 PM EST Danielle Iniguez NP LAB URINE ORDERABLES Final Resu lt [facility] [address] * HIV 1/2 ANTIGEN/ANTIBODY,FOURTH GENERATION W/RFL (07/24/2021 2:33 PM EST) HIV-1/2 ANTIGEN AND ANTIBODIES, 4TH GENERATION W/ REFLEX NON-REACT MEREDITH NON-REACT MEREDITH [facility] Comment: HIV-1 antigen and HIV-1/HIV-2 antibodies were not detected. There is no laboratory evidence of HIV infection. ?? PLEASE NOTE: This information has been disclosed to you from records whose confidentiality may be protected by state law. ??If your state requires such protection, then the state law prohibits you from making any further disclosure of the information without the specific written consent of the person to whom it pertains, or as otherwise permitted by law. A general authorization for the release of medical or other information is NOT sufficient for this purpose. ? For additional information please refer to http://Earth Class Mail.Ecometrica/faq/WCW460 (This link is being provided for informational/ educational purposes only.) ? The performance of this assay has not been clinically validated in patients less than 2 years old. ?? 07/24/2021 2:33 PM EST us Danielle Iniguez CASH REGISTER REPAIRER LAB BLOOD ORDERABLES Final Resu lt [facility] [address] * (ABNORMAL) LIPID PANEL, STANDARD (07/24/2021 2:33 PM EST) Chol/HDLC Ratio 2.4 <5.0 (calc) [facility] Cholesterol, Total 85 <200 mg/dL [facility] HDL Cholesterol 36(L) > OR = 40 mg/dL [facility] LDL Cholesterol 32 mg/dL (calc) [facility] Comment: Reference range: <100 ?? Desirable range <100 mg/dL for primary prevention; ?? <70 mg/dL for patients with CHD or diabetic patients ?? with > or = 2 CHD risk factors. ?? LDL-C is now calculated using the Joaquin ?? calculation, which is a validated novel method providing ?? better accuracy than the Friedewald equation in the ?? estimation of LDL-C. ?? Weston CARBAJAL et al. SHEREE. 2013;310(19): 4801-0421 ?? (http://Earth Class Mail.ACKme Networks.TastyKhana/faq/LIE202) Non-HDL Cholesterol 49 <130 mg/dL (calc) [facility] Comment: For patients with diabetes plus 1 major ASCVD risk ?? factor, treating to a non-HDL-C goal of <100 mg/dL ?? (LDL-C of <70 mg/dL) is considered a therapeutic ?? option. Triglycerides 86 <150 mg/dL [facility] 07/24/2021 2:33 PM EST us Danielle Iniguez NP LAB BLOOD ORDERABLES Final Resu lt [facility] [address] [place] [address], from Last 3 Months or Most Recently Relevant to Health Maintenance Insurance [facility] C3 HSN FULL * Guarantor: Daniel Nieto Account Type Relation to Patient Date of Phone Billing Address Dental Self 1965 [address] [facility] [address] [place] [address] DENTAL-[facility] MEDICAID STAND ADULT Care Teams Cloth Layer Relationship Specialty Start Date End Date Mary Alice Vega FNP [address] [place] [phone] PCP - General Family Medicine 07/16/22
== END 2024-08-27 14:48 | disposition home or self-care (01) ==
LOC: HO.HGI 13:15
PROVIDERS: PCP Nurse Practitioner Primary Care; Visit Provider Internal Medicine
DX: K74.60 Unspecified cirrhosis of liver (principal); Z86.19 Personal history of other infectious and parasitic diseases; R76.8 Other specified abnormal immunological findings in serum; D69.6 Thrombocytopenia, unspecified
CPT/HCPCS: 99204

== ENCOUNTER 2024-09-13 09:03 | Outpatient (REF) | payer MEDICAID, SELFPAY ==
[2024-09-13 09:36] LABS: Prothrombin Time 11.6 SEC (10.9-12.4)
[2024-09-13 09:40] LABS: Estimated Average Glucose 100 mg/dL; Hemoglobin A1C 142.8706 umol/L; Hemoglobin A1c % 5.1 % (<6.0); Total Hemoglobin (HGBA1C) 4462.1656 umol/L
--- OUTSIDE RECORDS SUMMARY | 2024-09-13 09:53 | XMS_ITS | Encounter Summary ---
Author Organization [employer] Address [address] [facility] 7t [place] [address] Care Team Providers Care Skip Hoist Operator Name Role Phone [facility] Primary Care Provider [phone] Reason for Visit * Reason Onset Date Comments Results 09/08/2024 Encounter Details Date Type Department Care Team ([facility] Contact Info) Description 09/08/2024 Telephone [facility] MEDICINE [address] [place] [address] Mikayla Nieves RN [address] [place] [address] Results Social History Tobacco Use Types Packs/Day Years Used Date Smoking Tobacco: Every Day Cigarettes Passive Smoke Exposure: Current Smokeless Tobacco: Never Alcohol Use Standard Drinks/Week [...] not to disclose 2021 10:14 AM EDT documented as of this encounter Miscellaneous Notes * Telephone Encounter - Mikayla Nieves RN - 09/08/2024 9:55 AM EDT TC placed to pt., reached sister (on HIPAA), reports pt. Is currently at [facility] app[facility] Informed sister bloodwork from 08/27/24 came back showing elevated cholesterol (total 232), sister reports pt. Has not started on rosuvastatin 10mg daily yet, she reports he does not like taking multiple medications due to concern for his liver. Sister reports pt. Only takes rxs for BP and thyroid. Advised sister of risks of not taking cholesterol rx and pt. States she thinks pt. Will agrees to take it. Otherwise advised sister thyroid level came back low, indicating dose of levothyroxine may be too high however PCP would like pt. To repeat bloodwork prior to adjusting dose. Sister will have pt. Return to lab at earliest convenience. documented in this encounter Plan of Treatment Upcoming Encounters Date Type Department Care Team (Late st Contact Info) Description 09/15/2024 11:30 AM EDT Clinical Support [address] [address] 11/29/2024 11:15 AM EDT Office Visit [facility] [address] [place] [address] Mary Alice Vega FNP [address] [place] [address] documented as of this encounter Visit Diagnoses Not on filedocumented in this encounter Additional Health Concerns Assessment Noted Time PHQ-9 Depression Total Score: 0 01/16/20 24 3:23 PM EDT documented as of this encounter Care Teams Skip Hoist Operator Relationship Specialty Start Date End Date Mary Alice Vega FNP [address] [place] [address] PCP - General Family Medicine 07/16/22 documented as of this encounter
--- OUTSIDE RECORDS SUMMARY | 2024-09-13 09:53 | XMS_ITS | Clinical Summary ---
Author Organization [employer] Address [address] [facility] [address] [place] [address] Care Team Providers Care Web Site Project Manager Name Role Phone Mary Alice Vega [facility] Primary Care Provider [phone] Allergies No known active allergies Medications Spacer/Aero-Holdi ng Chambers (Compact Space Chamber) device USE WITH albuterol 022 Active albuterol (2.5 MG/3ML) 0.083% nebulizer solutionIndicatio ns:Asthma, unspecified asthma severity, unspecified whether complicated, unspecified whether persistent,Asthma , unspecified asthma severity, unspecified whether complicated, unspecified whether persistent Take 3 mL (2.5 mg) by nebulization every 4 (four) hours if needed for wheezing or shortness of breath. 75 mL 2 023 Active albuterol (Ventolin HFA) 108 (90 Base) MCG/ACT inhaler Inhale 2 puffs every 4 (four) hours if needed for wheezing. 18 g 1 023 Active budesonide-formot tejal (Symbicort) 80-4.5 MCG/ACT inhalerIndication s:Moderate persistent asthma without complication INHALE 2 PUFFS TWICE DAILY. RINSE MOUTH AFTER USING. DO NOT SWALLOW WATER 10.2 g 3 024 Active omeprazole (PriLOSEC) [address] capsuleIndication s:Hepatic cirrhosis, unspecified hepatic cirrhosis type, unspecified whether ascites present (CMS/HCC) TAKE 1 CAPSULE BY MOUTH ONCE DAILY BEFORE A MEAL 90 capsule 1 024 Active levothyroxine (Synthroid) 137 MCG tabletIndications :Acquired hypothyroidism TAKE 1 TABLET BY MOUTH BEFORE BREAKFAST 90 tablet 1 025 Active ramelteon (Rozerem) 8 MG tabletIndications :Hepatic cirrhosis, unspecified hepatic cirrhosis type, unspecified whether ascites present (CMS/HCC) TAKE 1 TABLET BY MOUTH AT BEDTIME 30 tablet 3 025 Active rosuvastatin (Crestor) 10 MG tabletIndications :Essential hypertension,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 30 tablet 11 025 2025 Active olmesartan (Benicar) 5 MG tabletIndications :Essential hypertension Take 1 tablet (5 mg) by mouth Once per day. If tolerating well ok to increase to 2 tablets (10mg) if needed for blood pressure to remain <140/90 30 tablet 11 025 2025 Active nicotine polacrilex (Nicorette) 4 MG gumIndications:To bacco use Chew 1 piece every 1-2 hours as needed for smoking cessation. Do not excess 24 pieces in 24 hour period 120 each 1 025 Active nicotine polacrilex (Nicorette) 4 MG gumIndications:To bacco use Chew 1 each (4 mg) if needed for smoking cessation. 100 each 025 2024 Discontinued Active Problems Problem Noted Date Diagnosed Date [...] tongue ulcer, Rx Paxlovid x 5 days, [place] interactions module checked, no significant interactions found. [...] b.i.d ?? Albuterol PRN ?? Followed by [facility] pulmonology Assessment & Plan (08/25/2022 7:45 AM EDT): ?? Continue current regimen ?? Follow up with pulmonology as scheduled ?? Plan to discuss LDLCT screening at follow up if not already enrolled Substance use disorder 08/25/2022 Overview (08/25/2022): ?? Sober x 25 years Hyperthyroidism 10/31/2021 Overview (09/08/2024): Followed by [facility] endocrinology Dr. Varner S/p thyroidectomy, On levothyroxine Chronic hepatitis C 07/30/2021 Pain in joint [...] Completed HCV tx with mavyret 2021 through [facility]. Followed by [facility] GI Resolved Problems Problem Noted Date Diagnosed Date Resolved Date Dyspnea on exertion 10/06/2021 08/26/19 Encounters Date Type Department Care Team Description 09/13/2024 Orders Only GENERIC EXTERNAL DATA DEPARTMENT Provider, Generic External Data 09/08/2024 Telephone [facility] [address] [place] [address] Mikayla Nieves RN Results 09/08/2024 Orders Only [facility] [address] [place] [address] [facility] Postablative hypothyroidism (Primary Dx) 08/30/2024 11:15 AM EDT Office Visit [facility] [place] [address] [facility] Blurred vision, bilateral (Primary Dx); 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, without long-term current use of insulin (CMS/HCC); Postablative hypothyroidism; Essential hypertension; Tobacco use 08/30/2024 Refill [facility] [address] [place] [address] [facility] Tobacco use 08/30/2024 Travel 08/27/2024 Orders Only GENERIC EXTERNAL DATA DEPARTMENT Provider, Generic External Data 08/09/2024 Telephone [facility] [address] [place] [address] [facility] No Show 07/30/2024 Population Health Risk Score Community [facility] ([facility] Department [address] [place] [phone] Provider, Population Health Generic 06/29/2024 Refill [facility] [place] [address] [facility] Acquired hypothyroidism; Hepatic cirrhosis, unspecified hepatic cirrhosis type, unspecified whether ascites present (CMS/HCC) 06/25/2024 Telephone [facility] [address] [place] [address] [facility] No Show from Last 3 Months Immunizations Name Administration Dates Next Due Pneumococcal Conjugate PCV 20 08/07/2022 Pneumococcal Polysaccharide PPSV23 08/28/2021 Tdap 08/07/2022,09/02/2007 Social History Tobacco Use Types Packs/Day Years Used Date Smoking Tobacco: Every Day Cigarettes Passive Smoke Exposure: Current Smokeless Tobacco: Never Tobacco Cessation:Ready to Q uit: Not Asked; Counseling Given: Not Answered Alcohol Use Standard Drinks/Week Comments Never 0 [...] Sign Reading Time Taken Comments Blood Pressure 169/107 08/30/2024 11:30 AM EDT Pulse 69 08/30/2024 11:30 AM EDT Temperature 36 ??C (96.8 ??F) 08/30/2024 11:30 AM EDT Respiratory Rate 20 08/30/2024 11:30 AM EDT Oxygen Saturation 98% 01/16/2024 3:20 PM EDT Inhaled Oxygen Concentration - - Weight 88.3 kg (194 lb 9.6 oz) 08/30/2024 11:30 AM EDT Height 167.6 cm (5' 6 ) 08/30/2024 11:30 AM EDT Body Mass Index 31.41 08/30/2024 11:30 AM EDT Plan of Treatment Upcoming Encounters Date Type Department Care Team (Late st Contact Info) Description 09/15/2024 11:30 AM EDT Clinical Support [facility] [address] [place] [address] 11/29/2024 11:15 AM EDT Office Visit [facility] [address] [place] [address] [facility] [address] [place] [address] Health Maintenance Due Date Last Done Comments [...] 09/04/1982 Zoster Vaccines (1 of 2) 09/04/2013 SDOH Screening 07/18/2023 07/17/2022 Hepatitis B Vaccines (1 of 3 - Risk 3-dose series) 2023 RSV Patients and Patients Aged 60 years or older (1 - Risk 60-74 years 1-dose series) 2023 COVID-19 Vaccine ( season) 2024 Influenza Vaccine (#1) 2024 Alcohol/Substance Use Screening 01/15/2025 01/16/2024 Depression Screening 01/15/2025 01/16/2024, 01/16/20 24 Diabetes: Hemoglobin A1C 03/15/2025 025, 09/25/2023, 09/25/2023, Additional history exists Diabetes: Urine Protein Screening 08/27/2025 08/27/2024, 07/24/2021 Lipid Panel 08/27/2025 08/27/2024, 07/24/2021 Tobacco Screening 08/30/2025 08/30/2024 DTaP/Tdap/Td Vaccines (3 - Td or Tdap) 08/07/2032 08/07/2022, 09/02/2007 Pneumococcal Vaccine: 50+ Years Completed 08/07/2022, 08/28/2021 HIV Screening Completed 08/27/2024, 07/24/2021 HIB Vaccines Aged Out No longer eligi [...] Procedure Name Priority Date/Time Associated Diagnosis Comments PROTHROMBIN TIME-INR Routine 09/13/2024 9:16 AM EDT HEMOGLOBIN A1C Routine 09/13/2024 9:16 AM EDT 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, without long-term current use of insulin (CMS/HCC) HIV 1/2 ANTIGEN/ANTIBODY, FOURTH GENERATION W/RFL Routine 08/27/2024 3:27 PM EDT HEPATITIS B VIRUS DNA, QN, REAL TIME PCR Routine 08/27/2024 3:27 PM EDT T4, FREE Routine 08/27/2024 3:27 PM EDT CBC Routine 08/27/2024 3:27 PM EDT HEPATITIS PANEL, GENERAL Routine 08/27/2024 3:27 PM EDT Hepatic cirrhosis, unspecified hepatic cirrhosis type, unspecified whether ascites present (CMS/HCC) ALPHA FETOPROTEIN, TUMOR MARKER Routine 08/27/2024 3:27 PM EDT Hepatic cirrhosis, unspecified hepatic cirrhosis type, unspecified whether ascites present (CMS/HCC) HEPATITIS C VIRAL RNA, QUANTITATIVE, REAL-TIME PCR Routine 08/27/2024 3:27 PM EDT Hepatic cirrhosis, unspecified hepatic cirrhosis type, unspecified whether ascites present (CMS/HCC) CBC WITH AUTO DIFFERENTIAL Routine 08/27/2024 3:27 PM EDT Hepatic cirrhosis, unspecified hepatic cirrhosis type, unspecified whether ascites present (CMS/HCC) PROTHROMBIN TIME-INR Routine 08/27/2024 3:27 PM EDT Hepatic cirrhosis, unspecified hepatic cirrhosis type, unspecified whether ascites present (CMS/HCC) LIPID PANEL, STANDARD Routine 08/27/2024 3:27 PM EDT 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, without long-term current use of insulin (CMS/HCC) COMPREHENSIVE METABOLIC PANEL Routine 08/27/2024 3:27 PM EDT 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 Prothrombin Time 11.6 10.9 - 12.4 SEC [facility] INTERNATIONAL NORM RATIO 1.0 0.9 - 1.1 [facility] Comment:INTERNATIONAL NORMAL IZED RATIO (INR) REFERENCE RANGES Reference RangeFor patients not on anticoagulant therapy: 0.9 - 1.1INR ranges for oral anticoagulanttherapy:For prevention and treatment of venous thrombosis and pulmonary embolism: 2.0 - 3.0For acute myocardial infarction with aspirin therapy: 2.0 - 3.0For acute myocardial infarction without aspirin therapy: 3.0 - 4.0For patients with mechanical prosthetic heart valves: 2.5 - 3.5 09/13/2024 9:16 AM EDT 09/13/2024 9:16 AM EDT Generic External Data Provider LAB BLOOD ORDERAB LES Final Result Performing Organization Address [facility]/ZIP Co de Phone Number [facility] [address] [place] [phone] * Hemoglobin A1c (09/13/2024 9:16 AM EDT) Hemoglobin A1c 5.1 <6.0 % [facility] Comment:Hemoglobin A1C Refer ence Range Adults: 4.8 - 6.0 % Non diabetic: < 6.0 % Goal: < 7.0 %Additional Action Suggested: > 8.0 %Note: Hemoglobin A1c results are invalid for patients with abnormal amounts of HbF. Blood transfusions may impact the HbA1c concentration in the patient sample. Estimated Average Glucose 100 mg/dL [facility] Comment:eAG = Estimated ave rage glucose which is %A1C expressed asaverage glucose, using the formula of the [id number] Glucose study (ADAG), Diabetes Care, Vol.31,#8,Dec. 2007 Blood Venous blood specimen / Unknown 09/13/2024 9:16 AM EDT 09/13/2024 9:16 AM EDT [facility] LAB BLOOD ORDERABLES Final Re sult Performing Organization Address [facility]/ZIP Co de Phone Number [facility] [address] [place] [phone] * (ABNORMAL) TSH W/Reflex to FT4 (08/27/2024 3:27 PM EDT) TSH reflex Free T4 0.14(L) 0.32 - 4.0 uIU/mL [facility] Blood Venous blood specimen / Unknown 08/27/2024 3:27 PM EDT 08/27/2024 3:27 PM EDT [facility] LAB BLOOD ORDERABLES Final Re sult Performing Organization Address [facility] de Phone Number [facility] [address] [place] [phone] * (ABNORMAL) Hepatitis A,B,C Profile (08/27/2024 3:27 PM EDT) [facility] Hepatitis A IgM Nonreactive Nonreactive [facility] Comment:IgM antibodies to HO V not detected; does not exclude earlyacute or recovered HAV infection. ~Hepatitis B Surface Antibody REACTIVE Nonreactive [facility] Comment:REACTIVE: > 11.99 mI U/mL Hepatitis B Core Antibody Reactive Nonreactive [facility] Comment:Presumptive evidence of anti-HBc. Hepatitis C Antibody Reactive(A) Nonreactive [facility] Comment:Presumptive evidence of antibodies to HCV. Hepatitis B Surface Ag Negative Negative [facility] Blood Venous blood specimen / Unknown 08/27/2024 3:27 PM EDT 08/27/2024 3:27 PM EDT [facility] LAB BLOOD ORDERABLES Final Re sult Performing Organization Address [facility] de Phone Number [facility] [address] [place] [phone] * Hepatitis C Viral RNA, Quantitative, Real-Time PCR (08/27/2024 3:27 PM EDT) [facility] Hepatitis C Viral Load <15 NOT DETECTED NOT DETECTED IU/mL [facility] HCV Log PCR <1.18 NOT DETECTED NOT DETECTED Log IU/mL [facility] Comment:For additional infor jac, please refer [email or web address](This link is being provided for informational/educational purposes only.)THIS TEST WAS PERFORMED AT:[facility] [place] [id number] ALBERTO MD Blood Venous blood specimen / Unknown 08/27/2024 3:27 PM EDT 08/27/2024 3:27 PM EDT [facility] LAB BLOOD ORDERABLES Final Re sult [facility] [address] [place] [phone] * (ABNORMAL) CBC auto differential (08/27/2024 3:27 PM EDT) Neutrophils Percent Auto 53.6 45 - 73 % [facility] Imm Gran Pct Auto 0.3 0.0 - 0.4 % [facility] Lymphocytes Percent Auto 33.2 20 - 40 % [facility] Monocytes Percent Auto 9.3 2 - 11 % [facility] Eosinophils Percent Auto 2.8 0 - 4 % [facility] Basophils Percent Auto 0.8 0 - 2 % [facility] Neutrophils Absolute Auto 1.9(L) 2.0 - 8.3 x10*3/uL [facility] Imm Gran Abs Auto 0.01 0.00 - 0.03 X10*3/uL [facility] Lymphocytes Absolute Auto 1.2 1.2 - 4.9 X10*3/uL [facility] Monocytes Absolute Auto 0.3 0.1 - 1.2 X10*3/uL [facility] Eosinophils Absolute Auto 0.1 0.0 - 0.4 X10*3/uL [facility] Basophils Absolute Auto 0.0 0.0 - 0.2 X10*3/uL [facility] Blood Venous blood specimen / Unknown 08/27/2024 3:27 PM EDT 08/27/2024 3:27 PM EDT [facility] LAB BLOOD ORDERABLES Final Re sult Performing Organization Address [facility]/ZIP Co de Phone Number [facility] [address] [place] [phone] * Alpha-Fetoprotein, Tumor Marker (08/27/2024 3:27 PM EDT) Pathologist [facility] Alpha Fetoprotein 3.2 <6.1 ng/mL [facility] Comment:This test was perfor med using the Charo Coulterchemiluminescent method. Values obtained fromdifferent assay methods cannot be usedinterchangeably. AFP levels, regardless ofvalue, should not be interpreted as absoluteevidence of the presence or absence of disease.THIS TEST WAS PERFORMED AT:[facility] [address] [phone] ALBERTO MD Blood Venous blood specimen / Unknown 08/27/2024 3:27 PM EDT 08/27/2024 3:27 PM EDT [facility] LAB BLOOD ORDERABLES Final Re sult Performing Organization Address [facility]/ZIP Co de Phone Number [facility] [address] [place] [address] [phone] * Hepatitis B Virus DNA, Quantitative, Real-Time PCR (08/27/2024 3:27 PM EDT) Pathologist [facility] Hepatitis B Viral DNA Qn - cp NOT DETECTED NOT DETECTED Log IU/mL [facility] Comment:This test was perfor med using Real-Time Polymerase ChainReaction.Reportable Range: 10 IU/mL to 1,000,000,000 IU/mL.(1.00 Log IU/mL to 9.00 Log IU/mL).THIS TEST WAS PERFORMED AT:[facility] [address] [phone] ALBERTO MD Hepatitis B Viral DNA Qn-IU/mL NOT DETECTED NOT DETECTED IU/mL [facility] 08/27/2024 3:27 PM EDT 08/27/2024 3:27 PM EDT us Generic External Data Provider LAB BLOOD ORDERAB LES Final Result Performing Organization Address City/[facility]/ZIP Co de Phone Number [facility] [address] [place] [phone] * HIV-1/2 Antigen and Antibodies, Fourth Generation, with Reflexes (08/27/2024 3:27 PM EDT) [facility] HIV AB/AG Nonreactive Nonreactive [facility] Comment:HIV-1 p24 Ag and/or HIV-1/HIV-2 Ab not detected.A test result that is nonreactive does not exclude thepossibility of exposure to or infection with HIV-1 and/orHIV-2. Nonreactive results in this assay for individualswith prior exposure to HIV-1 and/or HIV-2 may be due toantigen and antibody levels that are below the limit ofdetection of this assay.[employer] HIV Ag/Ab Combo assay result andsupplemental assay results should be interpreted inconjunction with the patient's clinical presentation,history and other laboratory results. If the results areinconsistent with clinical evidence, additional testing issuggested to confirm the result. 08/27/2024 3:27 PM EDT 08/27/2024 3:27 PM EDT Generic External Data Provider LAB BLOOD ORDERAB LES Final Result Performing Organization Address City/[facility]/ZIP Co de Phone Number [facility] [address] [place] [phone] * (ABNORMAL) CBC (08/27/2024 3:27 PM EDT) Pathologist [facility] White Blood Count 3.6(L) 4.8 - 10.8 X10*3/uL [facility] Red Blood Count 5.55 4.60 - 5.80 X10*6/uL [facility] Hemoglobin 17.1 14.0 - 18.0 g/dl [facility] Hematocrit 47.1 42.0 - 52.0 % [facility] Mean Corpuscular Volume 84.9 80.0 - 98.0 fL [facility] Mean Corpuscular Hemoglobin 30.8 27.0 - 33.0 pg [facility] Mean Corpuscular HGB Conc 36.3(H) 31.0 - 36.0 g/dl [facility] Red Cell Distribution Width 13.5 11.0 - 16.0 % [facility] Platelet Count 124(L) 160 - 400 X10*3/uL [facility] Mean Platelet Volume 9.2(L) 9.4 - 12.4 fL [facility] NRBC Pct Auto 0.0 0.0 - 0.2 /100WBC [facility] NRBC Abs Auto 0.000 0.0 - 0.012 X10*3/uL [facility] 08/27/2024 3:27 PM EDT 08/27/2024 3:27 PM EDT Generic External Data Provider LAB BLOOD ORDERAB LES Final Result Performing Organization Address [facility]/ZIP Co de Phone Number [facility] [address] [place] [phone] * T4, Free (08/27/2024 3:27 PM EDT) Free T4 (Free Thyroxine) 1.08 0.71 - 1.85 ng/dL [facility] 08/27/2024 3:27 PM EDT 08/27/2024 3:27 PM EDT [facility] LAB BLOOD ORDERABLES Final Re sult Performing Organization Address [facility] Co de Phone Number [facility] [address] [place] [phone] * (ABNORMAL) Lipid Panel, Standard (08/27/2024 3:27 PM EDT) Triglycerides 160(H) <150 mg/dL [facility] Comment:Desirable Triglyceri de: less than 150 mg/dLBorderline High Triglyceride 150-199 mg/dLHigh Triglyceride: 200-499 mg/dLVery High Triglyceride: greater than or equal to 5OO mg/dL Cholesterol 232(H) <200 mg/dL [facility] Comment:Desirable Cholestero l: less than 200 mg/dLBorderline High Cholesterol: 200-239 mg/dLHigh Cholesterol: greater than 239 mg/dL LDL Cholesterol Calculated 142(H) <100 mg/dL [facility] Comment:Desirable LDL: less than 100 mg/dLNear Optimal/Above Optimal LDL: 110- 129 mg/dLBorderline High LDL: 130-159 mg/dLHigh LDL: 160-189 mg/dLVery High LDL: greater than or equal to 190 mg/dL HDL Cholesterol 58 >40 mg/dL [facility] Comment:Desirable HDL: great er than 40 mg/dL Note: This HDL assay may give artificially low results in patients with liver disease. Blood Venous blood specimen / Unknown 08/27/2024 3:27 PM EDT 08/27/2024 3:27 PM EDT [facility] LAB BLOOD ORDERABLES Final Re sult [facility] [address] [place] [phone] * (ABNORMAL) Comprehensive Metabolic Panel (08/27/2024 3:27 PM EDT) Sodium 141 135 - 145 mmol/L [facility] Potassium 4.1 3.3 - 5.1 mmol/L [facility] Chloride 108 96 - 108 mmol/L [facility] Carbon Dioxide 25 22 - 29 mmol/L [facility] Anion Gap 12 12 - 20 [facility] Urea Nitrogen (BUN) 10 9 - 16 mg/dL [facility] Creatinine, Serum 0.80 0.5 - 1.4 mg/dL [facility] Estimated Glomerular Filt Rate >60 [facility] Comment:Chronic Kidney Disea se: Estimated GFR < 60 mL/min/[id number] Kidney Disease: Estimated GFR < 15 mL/min/1.73m2 Glucose 82 60 - 115 mg/dL [facility] Calcium 8.8 8.4 - 10.2 mg/dL [facility] Bilirubin, Total 0.8 0.0 - 1.0 mg/dL [facility] Aspartate Amino Transferase 41(H) 5 - 37 U/L [facility] Alanine Aminotransferase 51(H) 0 - 40 U/L [facility] Total Protein 7.2 6.5 - 8.0 g/dL [facility] Albumin Level 4.0 3.5 - 5.0 g/dL [facility] Alkaline Phosphatase 101 39 - 117 U/L [facility] Blood Venous blood specimen / Unknown 08/27/2024 3:27 PM EDT 08/27/2024 3:27 PM EDT [facility] LAB BLOOD ORDERABLES Final Re sult Performing Organization Address [facility] de Phone Number [facility] [address] [place] [phone] * (ABNORMAL) Albumin, Random Urine W/Creatinine (08/27/2024 3:20 PM EDT) Creatinine, Urine 177.59 mg/dL [facility] Microalbumin Urine >2,000.0 mg/L [facility] Microalbum Creatinine Ratio Ur 1,126.1(H ) <30 ug/mg cr [facility] Comment:Albumin/Creatinine R atio Reference Ranges: Normal: < 30 ug/mg creatinine Microalbuminuria: 30 - 300 ug/mg creatinineClinical Albuminuria: > 300 ug/mg creatinine Urine 08/27/2024 3:20 PM EDT 08/27/2024 3:57 PM EDT [facility] LAB URINE ORDERABLES Final Re sult Performing Organization Address [facility] Co de Phone Number [facility] [address] [place] [phone] from Last 3 Months [facility] [employer]-[facility] MEDICAID STAND ADULT Care Teams Web Site Project Manager Relationship Specialty Start Date End Date Mary Alice Vega FNP [address] [place] [phone] PCP - General Family Medicine 07/16/22
--- OUTSIDE RECORDS SUMMARY | 2024-09-13 09:53 | XMS_ITS | Encounter Summary ---
Author Organization [employer] Address [address] [facility] [address] [place] [address] Care Team Providers Care Cooling Tower Technician Name Role Phone [place] [facility] Primary Care Provider [phone] Encounter Details Date Type Department Care Team ([facility] Contact Info) Description 09/13/2024 Orders Only GENERIC EXTERNAL DATA DEPARTMENT Provider, Generic External Data Social History Tobacco Use Types Packs/Day Years [...] AM EDT documented as of this encounter Plan of Treatment Upcoming Encounters Date Type Department Care Team (Late st Contact Info) Description 09/15/2024 11:30 AM EDT Clinical Support [address] [address] 11/29/2024 11:15 AM EDT [facility] [address] [place] [phone] [address] documented as of this encounter Procedures Procedure Name Priority Date/Time Associated Diagnosis Comments PROTHROMBIN TIME-INR Routine 09/13/2024 9:16 AM EDT documented in this encounter Results * Prothrombin Time-INR (09/13/2024 9:16 AM EDT) Prothrombin Time 11.6 10.9 - 12.4 SEC [facility] INTERNATIONAL NORM RATIO 1.0 0.9 - 1.1 [facility] Comment:INTERNATIONAL NORMAL IZED RATIO (INR) [...] 9:16 AM EDT 09/13/2024 9:16 AM EDT us Generic External Data Provider LAB BLOOD ORDERAB LES Final Result [facility] [address] [place] [address] [phone] documented in this encounter Visit Diagnoses Not on filedocumented in this encounter Additional Health Concerns Assessment Noted Time PHQ-9 Depression Total Score: 0 01/16/20 24 3:23 PM EDT documented as of this encounter Care Teams Cooling Tower Technician Relationship Specialty Start Date End Date Mary Alice Vega FNP [address] [place] [phone] PCP - General Family Medicine 07/16/22 documented as of this encounter
--- OUTSIDE RECORDS SUMMARY | 2024-09-13 09:53 | XMS_ITS | Encounter Summary ---
Author Organization [employer] Address [address] [facility] [address] [place] [address] Care Team Providers Care Director Business Management Name Role Phone Gary, [facility] Primary Care Provider [phone] Encounter Details Date Type Department Care Team ([facility] Contact Info) Description 09/08/2024 Orders Only [facility] [address] [place], [place] [phone] Gary [facility] [address] [place] [address] Postablative hypothyroidism (Primary Dx) Social History Tobacco Use Types Packs/Day Years [...] Description 09/15/2024 11:30 AM EDT Clinical Support [address] [address] 11/29/2024 11:15 AM EDT Office Visit [address] [address] Mary Alice Vega FNP [address] [place] [phone] Scheduled Orders Name Type Priority Associated Diagnoses Orde r Schedule TSH Lab Routine Postablative hypothyroidism Expected: 09/08/2024 (Approximate), Expires: 09/08/2025 documented as of this encounter Visit Diagnoses Diagnosis Postablative hypothyroidism- Primary Other postablative hypothyroidism documented in this encounter Additional Health Concerns Assessment Noted Time PHQ-9 Depression Total Score: 0 01/16/20 24 3:23 PM EDT documented as of this encounter Care Teams Director Business Management Relationship Specialty Start Date End Date Mary Alice Vega FNP [address] [place] [phone] PCP - General Family Medicine 07/16/22 documented as of this encounter
[2024-09-13 10:16] LABS: Alanine Aminotransferase 30 U/L (0-40); Albumin Level 3.9 g/dL (3.5-5.0); Alkaline Phosphatase 87 U/L (39-117); Anion Gap 12 (12-20); Aspartate Amino Transferase 39 U/L (5-37); Bilirubin Total 0.7 mg/dL (0.0-1.0); Blood Urea Nitrogen 14 mg/dL (9-16); Calcium 8.7 mg/dL (8.4-10.2); Carbon Dioxide 23 mmol/L (22-29); Chloride 109 mmol/L (96-108); Estimated Glomerular Filt Rate > 60; Glucose Random 85 mg/dL (60-115); Sodium 140 mmol/L (135-145); Total Protein 7.1 g/dL (6.5-8.0)
[2024-09-13 10:17] LABS: Thyroid Stimulating Hormone 0.12 uIU/mL (0.32-4.0)
[2024-09-13 10:18] LABS: TSH reflex Free T4 0.12 uIU/mL (0.32-4.0)
[2024-09-13 10:19] LABS: HBsAGNum1 0.24 S/CO (0.00-0.99); Hepatitis B Surface Antigen Negative (Negative)
[2024-09-13 11:23] LABS: Free T4 (Free Thyroxine) 1.13 ng/dL (0.71-1.85)
[2024-09-14 17:39] LABS: HCV Log PCR <1.18 NOT DETECTED Log IU/mL (NOT DETECTED); HepC Viral Load <15 NOT DETECTED IU/mL (NOT DETECTED)
== END 2024-09-13 09:04 | disposition home or self-care (01) ==
LOC: HO.LAB 09:03
PROVIDERS: PCP Registered Nurse; Visit Provider Internal Medicine
DX: E89.0 Postprocedural hypothyroidism (principal); E11.630 Type 2 diabetes mellitus with periodontal disease; K74.60 Unspecified cirrhosis of liver; Z86.19 Personal history of other infectious and parasitic diseases; B18.2 Chronic viral hepatitis C
CPT/HCPCS: 36415; 80053; 83036; 84439; 84443; 85610; 87340; 87522

== ENCOUNTER → 2024-09-22 09:49 | Outpatient (REF) | payer MEDICAID, SELFPAY ==
--- NOTE | 2024-09-22 09:53 | CA_ITS ---
Transthoracic Echocardiogram Patient (Last, First, Middle): Daniel Nieto A Gender: Male Date of : 1965 Age: 59 Procedure Date: 09/22/2024 Procedure Type: Transthoracic Echocardiogram Location: OP Height: 167. cm Weight: 79. kg BSA: 1.88 m2 Heart Rate: 56 bpm BP: 148 / 84 mmHg Tie Tape Machine Operator: SB Referring MD: Darlyn Jacobs MD Symptoms: I42.9 - Cardiomyopathy, unspecified Study Quality: Adequate w contrast ECG Rhythm: Bradycardia Conclusions: - The left ventricular systolic function is low normal. The visually estimated ejection fraction is between 50-55%. - The inferolateral wall and basal inferior segment are hypokinetic. - No obvious valvular pathology seen on this study. Findings Procedure Information Contrast agent, definity, is being given per protocol without apparent complications. The quality of the study was technically difficult. The study quality is limited by lung artifact. Left Ventricle Normal left ventricular cavity size. There is normal left ventricular wall thickness. The left ventricular systolic function is low normal. The visually estimated ejection fraction is between 50-55%. Diastolic function is normal for age. Wall Motion Rest Echo Findings The inferolateral wall and basal inferior segment are hypokinetic. Right Ventricle Mildly increased right ventricular cavity size. There is normal right ventricular systolic function. Atria Both atria are normal in size. Aortic Valve There is a normal trileaflet aortic valve. There is mild calcification of the aortic valve. There is no aortic valve stenosis. There is no aortic valve regurgitation. Mitral Valve The mitral valve appears normal. There is trace mitral valve regurgitation. There is no mitral valve stenosis. Pulmonic Valve The pulmonic valve is likely normal. Tricuspid Valve There is trace tricuspid valve regurgitation. There is no evidence of pulmonary hypertension. Great Vessels The asc aorta is normal in size. Venous The inferior vena cava is normal in size and collapses greater than 50% with inspiration. Pericardium/Pleural There is no evidence of pericardial effusion. Prior Study Comparison Changes noted compared to prior study dated: 12/10/2022. see comment on wall motion. Recommendations, Care & Conclusions No obvious valvular pathology seen on this study. Measurements 2D Linear Measurements IVSd: 0.64 0.6-0.9/0.6-1.0 cm LVIDd: 5.41 3.9-5.3/4.2-5.9 cm LVIDd Index: 2.88 2.4-3.2/2.2-3.1 cm/m2 LVIDs: 3.68 2.0-3.6 cm LVPWd: 0.70 0.7-1.1 cm LA Diam: 3.80 2.7-3.8/3.0-4.0 cm LAIDs Index: 2.02 1.5-2.3 cm/m2 LV Mass: 154.61 67-162/88-224 g LV Mass Index: 82.24 43-95/49-115 g/m2 LVOT Diam: 2.30 3.0+(-)1.3 cm 2D Systolic Function EF 4C: 56.50 >55% EF 2C: 51.60 >55% EF BiP: 55.00 >55% Mitral Valve MV Pk E: 0.84 MV PK A: 0.79 MV Decel Time: 201.00 E/A: 1.10 E'Lateral: 12.70 E'Medial: 8.38 E/E' Med: 10.00 E/E' Lat: 6.60 PHT: 59.00 MVA PHT: 3.73 Decel [place]: 4.15 Aortic Valve AoV Pk Adam: 1.67 AoV Pk Grad: 11.00 ROSANGELA: 2.71 LVOT LVOT Pk Adam: 0.98 LVOT Mn Adam: 0.78 LVOT VTI: 0.25 LVOT Pk Grad: 4.00 LVOT Mn Grad: 3.00 LVOT Diam: 2.30 LVOT Area: 4.15 Diastolic Function MV Pk E: 0.84 MV Pk A: 0.79 E/A: 1.10 E'Medial: 8.38 E/E' Med: 10.00 E' Laterial: 12.70 E/E' Lat: 6.60 Right Ventricle TAPSE (mm): 19.90 TVS' Adam: 12.20 Tricuspid Valve TR Pk Adam: 2.46 TR Pk Grad: 24.00 RA Press: 3.00 RVSP: 27.00 Great Vessels Aorta Sinus of Valsalva: 3.10 2.0-3.5 cm Ao Asc: 3.20 2.1-3.4 cm Pulmonary Veins Pulm Vein S/D 1.60 Pulmonary Valve PV Pk Adam: 0.86 Peak PV Grad: 3.00 Updated in Other Vendor System with Status of Final Jason Padron MD electronically signed on 09/23/2024 4:32:19 PM with status of Final
--- OUTSIDE RECORDS SUMMARY | 2024-09-22 10:43 | XMS_ITS | Clinical Summary ---
Author Organization [employer] Address [address] [place] [address] Care Team Providers Care Supervisor Screen Printing Name Role Phone Mary Alice Vega [facility] Primary Care Provider [phone] Allergies No known active allergies Medications Spacer/Aero-Holdi [...] A MEAL 90 capsule 1 024 Active ramelteon (Rozerem) 8 MG tabletIndications :Hepatic cirrhosis, unspecified hepatic cirrhosis type, unspecified whether ascites present (CMS/HCC) TAKE 1 TABLET BY MOUTH AT BEDTIME 30 tablet 3 Active rosuvastatin (Crestor) 10 MG tabletIndications :Essential [...] in 24 hour period 120 each 1 Active levothyroxine (Synthroid) 125 MCG tabletIndications :Hyperthyroidism Take 1 tablet (125 mcg) by mouth before breakfast. 90 tablet 025 2024 Active levothyroxine (Synthroid) 137 MCG tabletIndications :Acquired hypothyroidism TAKE 1 TABLET BY MOUTH BEFORE BREAKFAST 90 tablet 1 025 2024 Discontinued nicotine polacrilex (Nicorette) 4 MG gumIndications:To bacco [...] tongue ulcer, Rx Paxlovid x 5 days, [place] interactions module checked, no significant interactions found. [...] b.i.d ?? Albuterol PRN ?? Followed by [facility] pulmonology Assessment & Plan (08/25/2022 7:45 AM [...] Completed HCV tx with mavyret 2021 through [facility]. Followed by [facility] GI Resolved Problems Problem Noted Date Diagnosed Date Resolved Date Dyspnea on exertion 10/06/2021 08/26/19 23 Encounters Date Type Department Care Team Description 09/15/2024 Refill [facility] [address] [place] [address] Mikayla Nieves RN Hyperthyroidism 09/13/2024 Orders Only GENERIC EXTERNAL DATA DEPARTMENT Provider, Generic External Data 09/08/2024 Telephone [facility] [place] [address] Mikayla Nieves RN Results 09/08/2024 Orders Only [facility] [address] [place] [address] Mary Alice Vega FNP Postablative hypothyroidism (Primary Dx) 08/30/2024 11:15 AM EDT Office Visit [facility] [place] [address] Mary Alice Vega FNP Blurred vision, bilateral (Primary Dx); 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, without long-term current use of insulin ([facility]); Postablative hypothyroidism; Essential hypertension; Tobacco use 08/30/2024 Refill [facility] [place] [address] Mary Alice Vega FNP Tobacco use 08/30/2024 Travel 08/27/2024 Orders Only GENERIC EXTERNAL DATA DEPARTMENT Provider, Generic External Data 08/09/2024 Telephone [facility] [place] [address] Mary Alice Vega FNP No Show 07/30/2024 Population Health Risk Score Community [facility] ([facility]) Department [address] [place] [address] [phone] Provider, Population Health Generic 06/29/2024 Refill [facility] [place] [address] Mary Alice Vega FNP Acquired hypothyroidism; Hepatic cirrhosis, unspecified hepatic cirrhosis type, unspecified whether ascites present (CMS/HCC) 06/25/2024 Telephone [facility] [place] [address] Mary Alice Vega FNP No Show from [...] is your housing situation today? I have bcrl carbajal 01/16/[address] you [...] Care Team (Late st Contact Info) Description 11/29/2024 11:15 AM EDT Office Visit [facility] [address] [place], [place] [phone] [facility] [address] [place], [place] [phone] Health Maintenance Due Date Last Done Comments [...] years 1-dose series) 2023 COVID-19 Vaccine ( - season) 2024 Influenza Vaccine (#1) 2024 Alcohol/Substance [...] Procedure Name Priority Date/Time Associated Diagnosis Comments HEPATITIS C VIRAL RNA, QUANTITATIVE, REAL-TIME PCR Routine 09/13/2024 9:16 AM EDT T4, FREE Routine 09/13/2024 9:16 AM EDT HEPATITIS B SURFACE ANTIGEN, EIA Routine 09/13/2024 9:16 AM EDT TSH W/REFLEX TO FT4 Routine 09/13/2024 9 :16 AM EDT PROTHROMBIN TIME-INR Routine 09/13/2024 9:16 AM EDT HEMOGLOBIN A1C Routine 09/13/2024 9:16 AM EDT 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 Pathologist [facility] [place] TSH reflex Free T4 0.12(L) 0.32 - 4.0 uIU/mL [facility] 09/13/2024 9:16 AM EDT 09/13/2024 9:16 AM EDT us Generic External Data Provider LAB BLOOD ORDERAB LES Final Result Performing Organization Address [facility] de Phone Number [facility] [address] [place] [phone] * Hepatitis C Viral RNA, Quantitative, Real-Time PCR (09/13/2024 9:16 AM EDT) Only the most recent of2 resultswithin the time period is included. Pathologist [facility] [place] Hepatitis C Viral Load <15 NOT DETECTED NOT DETECTED IU/mL [facility] HCV Log PCR <1.18 NOT DETECTED NOT DETECTED Log IU/mL [facility] Comment:For additional infor jac, please refer tohttp://education.Swiftpage/faq/YLS81w7(This link is being provided for informational/educational purposes only.)THIS TEST WAS PERFORMED AT:[facility] [place] [id number] ALBERTO MD 09/13/2024 9:16 AM EDT 09/13/2024 9:16 AM EDT us Generic External Data Provider LAB BLOOD ORDERAB LES Final Result Performing Organization Address [facility] Co de Phone Number [facility] [address] [place] [phone] * Hepatitis B surface antigen, EIA (09/13/2024 9:16 AM EDT) Pathologist [facility] [place] Hepatitis B Surface Ag Negative Negative [facility] 09/13/2024 9:16 AM EDT 09/13/2024 9:16 AM EDT Generic External Data Provider LAB BLOOD ORDERAB LES Final Result Performing Organization Address City/[facility]/ZIP Co de Phone Number [facility] [address] [place] [phone] * Prothrombin Time-INR (09/13/2024 9:16 AM EDT) Only the most recent of2 resultswithin the time period is included. [facility] Prothrombin Time 11.6 10.9 - 12.4 SEC [facility] INTERNATIONAL NORM RATIO 1.0 0.9 - 1.1 [facility] Comment:INTERNATIONAL NORMAL IZED RATIO (INR) REFERENCE [...] 9:16 AM EDT 09/13/2024 9:16 AM EDT [employer] External Data Provider LAB BLOOD ORDERAB LES Final Result Performing Organization Address [facility]/ZIP Co de Phone Number [facility] [address] [place] [phone] * T4, Free (09/13/2024 9:16 AM EDT) Only the most recent of2 resultswithin the time period is included. Free T4 (Free Thyroxine) 1.13 0.71 - 1.85 ng/dL [facility] 09/13/2024 9:16 AM EDT 09/13/2024 9:16 AM EDT Generic External Data Provider LAB BLOOD ORDERAB LES Final Result Performing Organization Address [facility] de Phone Number [facility] [address] [place] [phone] * Hemoglobin A1c (09/13/2024 9:16 AM EDT) Hemoglobin A1c 5.1 <6.0 % [facility] Comment:Hemoglobin A1C Refer ence Range [...] asaverage glucose, using the formula of the Q0I-RaphuywZvrtzca Glucose study (ADAG), Diabetes Care, Vol.31,#8,Dec. 2007 Blood Venous blood specimen / Unknown 09/13/2024 9:16 AM EDT 09/13/2024 9:16 AM EDT [facility] LAYER OFF LAB BLOOD ORDERABLES Final Re sult Performing Organization Address [facility] Co de Phone Number [facility] [address] [place] [phone] * (ABNORMAL) Hepatitis A,B,C Profile (08/27/2024 3:27 PM EDT) Pathologist [facility] [place] Hepatitis A IgM Nonreactive Nonreactive [facility] Comment:IgM antibodies to HO V not detected; does not exclude earlyacute or recovered HAV infection. ~Hepatitis B Surface Antibody REACTIVE Nonreactive [facility] Comment:REACTIVE: > 11.99 mI U/mL Hepatitis B Core Antibody Reactive Nonreactive [facility] Comment:Presumptive evidence of anti-HBc. Hepatitis C Antibody Reactive(A) Nonreactive [facility] Comment:Presumptive evidence of antibodies to HCV. Hepatitis B Surface Ag Negative Negative [facility] Blood Venous blood specimen / Unknown 08/27/2024 3:27 PM EDT 08/27/2024 3:27 PM EDT [facility] LAYER OFF LAB BLOOD ORDERABLES Final Re sult [facility] [address] [place] [phone] * (ABNORMAL) CBC auto differential (08/27/2024 3:27 PM EDT) Neutrophils Percent Auto 53.6 45 - 73 % [facility] Imm Gran Pct Auto 0.3 0.0 - 0.4 % [facility] Lymphocytes Percent Auto 33.2 20 - 40 % [facility] Monocytes Percent Auto 9.3 2 - 11 % [facility] Eosinophils Percent Auto 2.8 0 - 4 % [facility] Basophils Percent Auto 0.8 0 - 2 % [facility] Neutrophils Absolute Auto 1.9(L) 2.0 - 8.3 x10*3/uL [facility] Imm Gran Abs Auto 0.01 0.00 - 0.03 X10*3/uL [facility] Lymphocytes Absolute Auto 1.2 1.2 - 4.9 X10*3/uL [facility] Monocytes Absolute Auto 0.3 0.1 - 1.2 X10*3/uL [facility] Eosinophils Absolute Auto 0.1 0.0 - 0.4 X10*3/uL [facility] Basophils Absolute Auto 0.0 0.0 - 0.2 X10*3/uL [facility] Blood Venous blood specimen / Unknown 08/27/2024 3:27 PM EDT 08/27/2024 3:27 PM EDT [facility] LAB BLOOD ORDERABLES Final Re sult Performing Organization Address [facility]/ZIP Co de Phone Number [facility] [address] [place] [phone] * Alpha-Fetoprotein, Tumor Marker (08/27/2024 3:27 PM EDT) Alpha Fetoprotein 3.2 <6.1 ng/mL [facility] Comment:This test was perfor med using the Charo Coulterchemiluminescent method. Values obtained fromdifferent assay methods cannot be usedinterchangeably. AFP levels, regardless ofvalue, should not be interpreted as absoluteevidence of the presence or absence of disease.THIS TEST WAS PERFORMED AT:[employer] [address] [id number] ALBERTO MD Blood Venous blood specimen / Unknown 08/27/2024 3:27 PM EDT 08/27/2024 3:27 PM EDT [facility] LAB BLOOD ORDERABLES Final Re sult Performing Organization Address City/[facility]/ZIP Co de Phone Number [facility] [address] [place] [phone] * Hepatitis B Virus DNA, Quantitative, Real-Time PCR (08/27/2024 3:27 PM EDT) Hepatitis B Viral DNA Qn - cp NOT DETECTED NOT DETECTED Log IU/mL [facility] Comment:This test was perfor med using Real-Time Polymerase ChainReaction.Reportable Range: 10 IU/mL to 1,000,000,000 IU/mL.(1.00 Log IU/mL to 9.00 Log IU/mL).THIS TEST WAS PERFORMED AT:[employer] [address] [id number] ALBERTO MD Hepatitis B Viral DNA Qn-IU/mL NOT DETECTED NOT DETECTED IU/mL [facility] 08/27/2024 3:27 PM EDT 08/27/2024 3:27 PM EDT us Generic External Data Provider LAB BLOOD ORDERAB LES Final Result Performing Organization Address [facility]/ZIP Co de Phone Number [facility] [address] [place] [phone] * HIV-1/2 Antigen and Antibodies, Fourth Generation, with Reflexes (08/27/2024 3:27 PM EDT) [facility] HIV AB/AG Nonreactive Nonreactive [facility] Comment:HIV-1 p24 Ag and/or HIV-1/HIV-2 Ab not detected.A test result that is nonreactive does not exclude thepossibility of exposure to or infection with HIV-1 and/orHIV-2. Nonreactive results in this assay for individualswith prior exposure to HIV-1 and/or HIV-2 may be due toantigen and antibody levels that are below the limit ofdetection of this assay.The Fabrus HIV Ag/Ab Combo assay result andsupplemental assay results should be interpreted inconjunction with the patient's clinical presentation,history and other laboratory results. If the results areinconsistent with clinical evidence, additional testing issuggested to confirm the result. 08/27/2024 3:27 PM EDT 08/27/2024 3:27 PM EDT Generic External Data Provider LAB BLOOD ORDERAB LES Final Result Performing Organization Address City/[facility]/ZIP Co de Phone Number [facility] [address] [place] [phone] * (ABNORMAL) CBC (08/27/2024 3:27 PM EDT) Pathologist [facility] [place] White Blood Count 3.6(L) 4.8 - 10.8 X10*3/uL [facility] Red Blood Count 5.55 4.60 - 5.80 X10*6/uL [facility] Hemoglobin 17.1 14.0 - 18.0 g/dl [facility] Hematocrit 47.1 42.0 - 52.0 % [facility] Mean Corpuscular Volume 84.9 80.0 - 98.0 fL [facility] Mean Corpuscular Hemoglobin 30.8 27.0 - 33.0 pg [facility] Mean Corpuscular HGB Conc 36.3(H) 31.0 - 36.0 g/dl [facility] Red Cell Distribution Width 13.5 11.0 - 16.0 % [facility] Platelet Count 124(L) 160 - 400 X10*3/uL [facility] Mean Platelet Volume 9.2(L) 9.4 - 12.4 fL [facility] NRBC Pct Auto 0.0 0.0 - 0.2 /100WBC [facility] NRBC Abs Auto 0.000 0.0 - 0.012 X10*3/uL [facility] 08/27/2024 3:27 PM EDT 08/27/2024 3:27 PM EDT us Generic External Data Provider LAB BLOOD ORDERAB LES Final Result [facility] [address] [place] [address] [phone] * (ABNORMAL) Lipid Panel, Standard (08/27/2024 3:27 PM EDT) Triglycerides 160(H) <150 mg/dL [facility] Comment:Desirable Triglyceri de: less than 150 mg/dLBorderline High Triglyceride 150-199 mg/dLHigh Triglyceride: 200-499 mg/dLVery High Triglyceride: greater than or equal to 5OO mg/dL Cholesterol 232(H) <200 mg/dL [facility] Comment:Desirable Cholestero l: less than 200 mg/dLBorderline High Cholesterol: 200-239 mg/dLHigh Cholesterol: greater than 239 mg/dL LDL Cholesterol Calculated 142(H) <100 mg/dL [facility] Comment:Desirable LDL: less than 100 mg/dLNear Optimal/Above Optimal LDL: 110- 129 mg/dLBorderline High LDL: 130-159 mg/dLHigh LDL: 160-189 mg/dLVery High LDL: greater than or equal to 190 mg/dL HDL Cholesterol 58 >40 mg/dL [facility] Comment:Desirable HDL: great er than 40 mg/dL Note: This HDL assay may give artificially low results in patients with liver disease. Blood Venous blood specimen / Unknown 08/27/2024 3:27 PM EDT 08/27/2024 3:27 PM EDT [facility] LAB BLOOD ORDERABLES Final Re sult [facility] [address], [place] [phone] * (ABNORMAL) Comprehensive Metabolic Panel (08/27/2024 3:27 PM EDT) Sodium 141 135 - 145 mmol/L [facility] Potassium 4.1 3.3 - 5.1 mmol/L [facility] Chloride 108 96 - 108 mmol/L [facility] Carbon Dioxide 25 22 - 29 mmol/L [facility] Anion Gap 12 12 - 20 [facility] Urea Nitrogen (BUN) 10 9 - 16 mg/dL [facility] Creatinine, Serum 0.80 0.5 - 1.4 mg/dL [facility] Estimated Glomerular Filt Rate >60 [facility] Comment:Chronic Kidney Disea se: Estimated GFR < 60 mL/min/1.15v5Nkgxvn Kidney Disease: Estimated GFR < 15 mL/min/1.73m2 Glucose 82 60 - 115 mg/dL [facility] Calcium 8.8 8.4 - 10.2 mg/dL [facility] Bilirubin, Total 0.8 0.0 - 1.0 mg/dL [facility] Aspartate Amino Transferase 41(H) 5 - 37 U/L [facility] Alanine Aminotransferase 51(H) 0 - 40 U/L [facility] Total Protein 7.2 6.5 - 8.0 g/dL [facility] Albumin Level 4.0 3.5 - 5.0 g/dL [facility] Alkaline Phosphatase 101 39 - 117 U/L [facility] Blood Venous blood specimen / Unknown 08/27/2024 3:27 PM EDT 08/27/2024 3:27 PM EDT [facility] LAB BLOOD ORDERABLES Final Re sult Performing Organization Address [facility] Co de Phone Number [facility] [address] [place] [phone] * (ABNORMAL) Albumin, Random Urine W/Creatinine (08/27/2024 3:20 PM EDT) Creatinine, Urine 177.59 mg/dL [facility] Microalbumin Urine >2,000.0 mg/L H [facility] Microalbum Creatinine Ratio Ur 1,126.1(H ) <30 ug/mg cr [facility] Comment:Albumin/Creatinine R atio Reference Ranges: Normal: < 30 ug/mg creatinine Microalbuminuria: 30 - 300 ug/mg creatinineClinical Albuminuria: > 300 ug/mg creatinine Urine 08/27/2024 3:20 PM EDT 08/27/2024 3:57 PM EDT [facility] LAB URINE ORDERABLES Final Re sult Performing Organization Address [facility] Co de Phone Number [facility] [address] [place] [phone] from Last [address] [place] [place] [address] C3 [employer] [facility] MEDICAID STAND ADULT Care Teams Supervisor Screen Printing Relationship Specialty Start Date End Date Mary Alice Vega FNP [address] [place] [phone] PCP - General Family Medicine 07/16/22
--- OUTSIDE RECORDS SUMMARY | 2024-09-22 10:43 | XMS_ITS | Encounter Summary ---
Author Organization [employer] Address [address] [facility] [address] [place] [address] Care Team Providers Care Spot Checker Name Role Phone [facility] Primary Care Provider [phone] Reason for Visit * Reason Onset Date Comments Results 09/15/2024 Encounter Details Date Type Department Care Team ([facility] Contact Info) Description 09/15/2024 Refill [facility] [address] [place] [address] Mikayla Nieves RN [address] [place] [address] Hyperthyroidism Social History Tobacco Use Types Packs/Day Years [...] Telephone Encounter - Mikayla Nieves RN - 09/15/2024 3:25 PM EDT Noted labs from 09/13/24 ordered by GI, no new doses of levothyroxine have been sent. TC placed to pt., reached sister who handed phone to pt. Informed sister and pt. That PCP wanted toaddress thyroid result that showed thyroid is being too suppressed on current dose of levothyroxineand would like pt. To switch from 137mcg to 125mcg daily, and recheck levels in 12 weeks which can be ordered at appt. In November. Pt. And sister verbalize understanding documented in this encounter Plan of Treatment Upcoming Encounters Date Type Department Care Team (Late st Contact Info) Description 11/29/2024 11:15 AM EDT Office Visit [facility] [address] [place] [address] [facility] [address] [place] [address] documented as of this encounter Visit Diagnoses Diagnosis Hyperthyroidism Thyrotoxicosis without mention of goiter or other cause, without mention of thyrotoxic crisis or storm documented in this encounter Additional Health Concerns Assessment Noted Time PHQ-9 Depression Total Score: 0 01/16/20 24 3:23 PM EDT documented as of this encounter Care Teams Spot Checker Relationship Specialty Start Date End Date Mary Alice Vega FNP [address] [place] [phone] PCP - General Family Medicine 07/16/22 documented as of this encounter
== END ==
LOC: HO.CARD 09:49
PROVIDERS: PCP Registered Nurse; Visit Provider Internal Medicine
DX: I42.9 Cardiomyopathy, unspecified (principal)
CPT/HCPCS: 93306; Q9957

== ENCOUNTER → 2024-09-22 09:53 | Outpatient (BNV) | payer MEDICAID, SELFPAY | PROVIDERS: PCP Registered Nurse; Visit Provider Internal Medicine | DX: I42.9 Cardiomyopathy, unspecified (principal) | CPT/HCPCS: 93306 ==